=== PATIENT | female | born 1965 | race Caucasian/White ===

== ENCOUNTER 2021-08-07 18:18 | Emergency (ER) | payer BC, SELFPAY ==
[2021-08-07 18:28] VITALS: BP 155/79; PULSE 68; RESP 16; TEMP 36.2; O2SAT 100
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
[2021-08-07] MEDS: TETANUS,DIPHTHERIA,AC PERTUSSIS ADULT (0.5 ML) BOOSTRIX IM (18:47)
== END 2021-08-07 18:51 | disposition home or self-care (01) ==
PROVIDERS: Emergency Provider Nurse Practitioner Family; PCP Family Medicine
DX: S80.212A Abrasion, left knee, initial encounter (principal); V18.4XXA Pedal cycle driver injured in noncollision transport accident in traffic accident, initial encounter; Z23 Encounter for immunization
CPT/HCPCS: 90471; 90715; 99213; G0463

== ENCOUNTER 2022-05-04 14:15 | Outpatient (CLI) | payer BC, SELFPAY ==
--- NOTE | ~2022-05-04 | XR_ITS ---
EXAMINATION: XR abdomen/kub 1V DATE: 05/04/2022 14:38 INDICATION: Hematuria. TECHNIQUE: A supine view of the abdomen on 2 radiographs was obtained. COMPARISON: None. FINDINGS: There are no dilated loops of bowel. There is a moderate volume of stool in the colon. IMPRESSION: 1. No visible urolithiasis. Reviewed, dictated and finalized at location A. PENDENT VIDEO PRODUCER IMPRESSION: 1. No visible urolithiasis.
== END 2022-05-04 14:16 | disposition home or self-care (01) ==
PROVIDERS: PCP Family Medicine; Visit Provider Urology
DX: Z87.442 Personal history of urinary calculi (principal)
CPT/HCPCS: 74018

== ENCOUNTER → 2022-07-20 13:11 | Outpatient (CLI) | payer BC, SELFPAY ==
--- NOTE | ~2022-07-20 | US_ITS ---
EXAMINATION: US retroperitoneal comp DATE: 07/20/2022 13:38 INDICATION: Gross hematuria TECHNIQUE: Multiple grayscale and Doppler ultrasound images of the kidneys were obtained. COMPARISON: None. FINDINGS: The right kidney measures 11.8 x 4.8 x 5.2 cm. The left kidney measures 10.5 x 5.6 x 5.5 cm . There is a possible mass of the left kidney lower pole. A 5 mm hyperechoic area projects in the lef t kidney upper pole. The kidneys demonstrate normal parenchymal echogenicity. There is no hydronephro sis. The bladder is normal. IMPRESSION: 1. Possible mass of the left kidney lower pole and possible left nephrolithiasis. Consider follow-up CT without and with contrast. Reviewed, dictated and finalized at location L. IMPRESSION: 1. Possible mass of the left kidney lower pole and possible left nephrolithiasi s. Consider follow-up CT without and with contrast.
--- NOTE | ~2022-07-20 | XR_ITS ---
EXAMINATION: XR abdomen/kub 1V INDICATION: Gross hematuria TECHNIQUE: Supine views of the abdomen were obtained on 2 radiographs. COMPARISON: 05/04/2022 FINDINGS: There is a subtle 5 mm density projecting over the left kidney which could reflect a stone. No additional urolithiasis is identified. The bowel gas pattern is unremarkable. The visualized lung bases are clear. Bilateral breast implants are noted. IMPRESSION: 1. Possible left nephrolithiasis. Reviewed, dictated and finalized at location L.
== END ==
DX: R31.0 Gross hematuria (principal); R93.422 Abnormal radiologic findings on diagnostic imaging of left kidney
CPT/HCPCS: 74018; 76770

== ENCOUNTER 2022-09-29 08:29 | Outpatient (CLI) | payer BC, SELFPAY ==
[2022-09-29 18:56] LABS: Alanine Aminotransferase 24 U/L (6-35); Albumin Level 4.2 g/dL (3.5-5.1); Alkaline Phosphatase 58 U/L (38-126); Anion Gap 6 mmol/L (8-16); Aspartate Amino Transferase 52 U/L (14-36); Bilirubin,Total 0.4 mg/dL (0.2-1.3); Blood Urea Nitrogen 21 mg/dL (7-17); Calcium 8.5 mg/dL (8.4-10.2); Carbon Dioxide 30 mmol/L (22-30); Chloride 103 mmol/L (98-107); Cholesterol 174 mg/dL (0-200); Estimated Glomerular Filt Rate > 60; Glucose 87 mg/dL (65-110); HDL Direct 64 mg/dL; Potassium 4.3 mmol/L (3.4-5.0); Sodium 139 mmol/L (137-145); Triglycerides 41 mg/dL (<150)
[2022-09-29 19:15] LABS: LDL Cholesterol Direct 73 mg/dL
[2022-09-29 19:16] LABS: Hematocrit 42.6 % (37.0-47.0); Hemoglobin 13.6 g/dL (12.0-15.0); Mean Corpuscular HGB Conc 31.9 g/dl (32-36); Mean Corpuscular Hemoglobin 30.4 pg (26-34); Mean Corpuscular Volume 95.1 fl (80-100); Platelet Count Result 305 k/mm3 (150-375); Red Blood Count 4.48 M/mm3 (4.2-5.4); Red Cell Distribution Width 12.5 % (11.5-14.5); White Blood Count 5.8 K/mm3 (4.5-10.0)
[2022-09-29 19:22] LABS: Vitamin D 25 Hydroxy 39.9 ng/mL
[2022-09-29 19:35] LABS: Hemoglobin A1C 5.4 % (<5.7)
== END 2022-09-29 08:30 | disposition home or self-care (01) ==
LOC: ANHGOSHLAB 08:30
PROVIDERS: Visit Provider Nurse Practitioner
DX: Z00.00 Encounter for general adult medical examination without abnormal findings (principal); R63.5 Abnormal weight gain; E55.9 Vitamin D deficiency, unspecified
CPT/HCPCS: 36415; 80053; 80061; 82306; 83036; 84443; 85027

== ENCOUNTER 2022-10-07 08:15 | Emergency (ER) | payer BC, SELFPAY ==
--- NOTE | ~2022-10-07 | XR_ITS ---
EXAMINATION: XR abdomen/kub 1V INDICATION: Left flank pain TECHNIQUE: Supine view of the abdomen is obtained. COMPARISON: 07/20/2022 FINDINGS: A 3 mm calcification projects at the expected location of the left ureterovesicular junctio n. No definite additional urolithiasis is suspected. The bowel gas pattern is normal. The visualized lung bases are clear. IMPRESSION: 1. 3 mm left pelvic calcification at the expected location of the left ureterovesicular junction. Reviewed, dictated and finalized at location L. IMPRESSION: 1. 3 mm left pelvic calcification at the expected location of the left ureterov esicular junction.
[2022-10-07 08:26] VITALS: BP 149/93; PULSE 78; RESP 16; TEMP 36.8; O2SAT 100
--- NOTE | 2022-10-07 08:28 | ED.FEMALEGU ---
HPI - Female Genitourinary General Chief complaint: Urogenital-Female Stated complaint: Bladder & side pain Time Seen by Provider: 10/07/22 08:33 Source: patient and RN notes reviewed Mode of arrival: ambulatory Limitations: no limitations History of Present Illness HPI Narrative: 56 y/o female with history of kidney stones presented for c/o mild burning with urination this morning, then developed left flank/side pain. Rates pain 5/10, constant. Denies hematuria, frequency, n/v/d/f/c. Patient follows with Dr Solis for kidney stones and has 2 known stones on the left for which she has a scheduled lithotripsy in November. States she was told they are 'high up.' Has not taken anything for pain. Related Data Home Medications Medication Instructions Recorded Confirmed calcium carbonate 500 mg calcium 500 mg PO DAILY 09/22/22 10/07/22 (1,250 mg) chewable tablet (Calcium 500) Allergies Allergy/AdvReac Type Severity Reaction Status Date / Time Penicillins Allergy Unknown Verified 10/07/22 08:25 Review of Systems Review of Systems: CONSTITUTIONAL: Denies body aches, fever, chills, or sweats. CARDIOVASCULAR: Denies chest pain, palpitations, or edema. RESPIRATORY: Denies cough or dyspnea. GASTROINTESTINAL: Denies abdominal pain, nausea, vomiting, or diarrhea. GENITOURINARY: Reports dysuria, flank pain denies frequency, urgency, hematuria SKIN: Denies rash, itching, or wounds. MUSCULOSKELETAL: Denies joint pain or myalgia. [facility] Past Medical History Medical History (Updated 10/07/22 @ 09:10 by Ladi Johnson APRN) Kidney stones Surgical History Surgical History Hx of breast implants, bilateral Family History Family History Father Diabetes mellitus Hypertension Heart disease Mother Hypertension Sibling Diabetes mellitus Social History Social History Smoking status: Never smoker Second hand tobacco smoke exposure: No Alcohol intake: current Alcohol use details: rarely Substance use: never Lack of Transportation: No Lack of Food: Never True Current Housing: I Have Housing Concerned About Future Housing: No Difficulty Paying Gas/Electric Bills: No Difficulty Paying for Meds: No Currently Unemployed: No Education: Bachelor's Degree Difficulty w/ Childcare or Family Care: No Comments At time of signature, I have reviewed and agree with nursing past medical, surgical, social and family history unless otherwise noted. Please see nursing chart for further information. There is no relevant family history pertinent to the presenting complaint Exam Narrative: GENERAL: appears in pain, pacing; in no acute distress. ENT: Mucous membranes pink and moist. NECK: Normal AROM. Supple. CHEST: No respiratory distress. Clear to auscultation. HEART: Regular rate and rhythm. ABDOMEN: Soft, nontender, nondistended, normal active bowel sounds. Left CVA tenderness to left mid abd, not increased with palpation. SKIN: Warm, dry, no rash. NEURO: No focal deficits. Alert and oriented x3. Gait steady. PSYCH: Normal affect. Course Course Emergency Course: Patient is aware of diagnosis, understands and agrees to treatment plan. Anticipatory guidance given. Patient agrees to follow-up as directed and is aware of reasons to seek care at the emergency department. Portions of this record may have been created with voice recognition software Level of Care: Express Care Visit Vital Signs Vital signs: Vital Signs Temperature 98.2 F 10/07/22 08:26 Pulse Rate 78 10/07/22 08:26 Respiratory Rate 16 10/07/22 08:26 Blood Pressure 149/93 H 10/07/22 08:26 Pulse Oximetry 100 10/07/22 08:26 Oxygen Delivery Room Air 10/07/22 08:26 Temperature 98.2 F 10/07/22 08:26 Pulse Rate
[2022-10-07] MEDS: ACETAMINOPHEN 500 MG TABLET 1000 MG PO (08:42)
== END 2022-10-07 09:20 | disposition home or self-care (01) ==
PROVIDERS: Emergency Provider Nurse Practitioner Family; PCP Family Medicine
DX: N20.0 Calculus of kidney (principal)
CPT/HCPCS: 74018; 81003; 87086; 99213; A9270; G0463

== ENCOUNTER 2022-10-11 11:18 | Outpatient (CLI) | payer BC, SELFPAY ==
--- NOTE | ~2022-10-11 | XR_ITS ---
Supine and upright views of the abdomen Clinical history: Left renal stone COMPARISON: 10/07/2022 Findings: Bowel gas pattern is nonspecific. No evidence for obstruction or free air. Questionable 4 m m left renal stone.. Osseous structures are intact. Impression: Questionable 4 mm left renal stone. Reviewed, dictated and finalized at location M. Impression: Questionable 4 mm left renal stone.
== END 2022-10-11 11:19 | disposition home or self-care (01) ==
PROVIDERS: PCP Family Medicine; Visit Provider Urology
DX: N20.0 Calculus of kidney (principal)
CPT/HCPCS: 74018

== ENCOUNTER 2022-11-19 08:28 | Outpatient (CLI) | payer BC, SELFPAY | END 2022-11-19 08:29 | disposition home or self-care (01) | LOC: ANHGOSHLAB 08:30 | PROVIDERS: PCP Family Medicine; Visit Provider Urology | DX: N20.0 Calculus of kidney (principal) | CPT/HCPCS: 87086 ==

== ENCOUNTER → 2022-12-24 08:19 | Outpatient (CLI) | payer BC, SELFPAY ==
--- NOTE | ~2022-12-24 | XR_ITS ---
XR abdomen/kub 1V 12/24/2022 08:38 INDICATION: Left kidney stone TECHNIQUE: KUB COMPARISON: Comparison to multiple prior studies sequentially, with oldest reviewed study dated 09/2022. FINDINGS: Bowel gas pattern is normal. Moderate colonic fecal loading. There is no evidence of free a ir, mass, organomegaly, ascites or obstruction. There is a possible stone in the proximal left ureter at the L3-4 level. Kidneys are obscured by bowel content. The bones appear intact. IMPRESSION: 1: Possible left ureterolithiasis at the L3-4 level.. Reviewed, dictated and finalized at location B.
== END ==
PROVIDERS: PCP Nurse Practitioner; Visit Provider Urology
DX: N20.0 Calculus of kidney (principal)
CPT/HCPCS: 74018

== ENCOUNTER → 2022-12-31 09:01 | Outpatient (CLI) | payer BC, SELFPAY ==
--- NOTE | ~2022-12-31 | CT_ITS ---
EXAMINATION: CT abdomen pelvis wo con DATE: 12/31/2022 09:13 INDICATION: Left ureteral stone TECHNIQUE: Computed tomography (CT) of the abdomen and pelvis was performed without intravenous contr ast. Automated exposure control and iterative reconstruction technique were employed. Exam dose: 339 .08 mGy-cm total exam DLP. COMPARISON: 12/24/2022 KUB FINDINGS: Minimal discoid atelectasis or scarring at the bases of the lower lobes. Heart size is with in normal limits. No pericardial or pleural effusion. Bilateral breast implants. Small sliding hiatal hernia. The liver, gallbladder, bile ducts, spleen, pancreas and pancreatic duct are unremarkable. Normal morphology of the adrenal glands. There is a pinpoint nonobstructing lower pole left renal calculus. No left or right ureteral calculus or hydroureteronephrosis. No renal space-occupying mass lesion is evident on this limited noncontras t examination. Normal caliber of the abdominal aorta. No intraperitoneal or retroperitoneal or pelvic mass lesion or adenopathy or ascites. The uterus and adnexal areas and urinary bladder are unremarkable. Diverticulosis of the colon; no CT evidence of diverticulitis. No bowel obstruction, bowel wall thick ening, pneumatosis or intraperitoneal free air is detected. Included skeletal structures are unremarkable. No suspicious osteolytic or osteoblastic lesions are n oted. IMPRESSION: Pinpoint nonobstructing lower pole left renal calculus Small sliding hiatal hernia Diverticulosis of the colon; no evidence of diverticulitis Reviewed, dictated and finalized at Location A. Reviewed, dictated and finalized at location B.
== END ==
PROVIDERS: PCP Urology; Visit Provider Urology
DX: N20.1 Calculus of ureter (principal); K44.9 Diaphragmatic hernia without obstruction or gangrene; K57.30 Diverticulosis of large intestine without perforation or abscess without bleeding; N20.0 Calculus of kidney
CPT/HCPCS: 74176

== ENCOUNTER → 2023-03-25 08:46 | Outpatient (CLI) | payer BC, SELFPAY ==
--- NOTE | ~2023-03-25 | US_ITS ---
EXAMINATION: US abdomen complete DATE: 03/25/2023 09:12 INDICATION: Fatty change of the liver TECHNIQUE: Multiple grayscale and Doppler ultrasound images of the abdomen were obtained. COMPARISON: CT, 12/31/2022 FINDINGS: The head and body of the pancreas are normal. The pancreatic tail is obscured by bowel gas. The liver is normal with normal echogenicity and echotexture. No surface nodularity. Normal hepatope lakshmi flow in the main portal vein. The gallbladder is normal with no abnormal wall thickening, pericho lecystic fluid or stones. The normal common bile duct measures 3 mm. There was no sonographic Deleon sign. The visualized portions of the aorta and inferior vena cava are normal. The spleen is obscured by bowel The right kidney measures 10.2 x 4.1 x 4.4 cm. The left kidney measur es 10.6 x 5.6 x 6.2 cm. The kidneys demonstrate normal parenchymal echogenicity. There is no hydronep hrosis. IMPRESSION: 1. Unremarkable ultrasound. No evidence of steatosis of the liver. Reviewed, dictated and finalized at location B. AGENT
== END ==
DX: K76.0 Fatty (change of) liver, not elsewhere classified (principal)
CPT/HCPCS: 76700

== ENCOUNTER 2023-03-25 09:12 | Outpatient (CLI) | payer BC, SELFPAY ==
[2023-03-25 13:23] LABS: Basophils Percent Auto 0.6 % (0.2-1.2); Eosinophils Absolute Auto 0.1 K/mm3 (0-0.3); Eosinophils Percent Auto 1.6 % (0-4.4); Hematocrit 42.6 % (37.0-47.0); Hemoglobin 13.4 g/dL (12.0-15.0); Immature Granulocyte Absolute 0.01 K/mm3 (0.00-0.031); Immature Granulocyte Percent A 0.2 % (0-0.5); Lymphocytes Absolute Auto 1.81 K/mm3 (0.9-3.2); Lymphocytes Percent Auto 36.5 % (18.3-44.2); Mean Corpuscular HGB Conc 31.5 g/dl (32-36); Mean Corpuscular Hemoglobin 30.7 pg (26-34); Mean Corpuscular Volume 97.7 fl (80-100); Monocytes Absolute Auto 0.3 K/mm3 (0.1-0.6); Monocytes Percent Auto 6.5 % (2.6-8.5); Neutrophils Absolute Auto 2.7 K/mm3 (1.3-6.7); Neutrophils Percent Auto 54.6 % (45.5-73.1); Platelet Count Result 279 k/mm3 (150-375); Red Blood Count 4.36 M/mm3 (4.2-5.4); Red Cell Distribution Width 12.6 % (11.5-14.5)
[2023-03-25 13:33] LABS: Appearance Urine Cloudy (Clear); Bacteria Urine Rare /hpf; Bilirubin Urine Negative (Negative); Blood Urine Negative (Negative); Calcium Oxalate Crystals Urine Present /hpf; Color Urine Yellow (Yellow); Glucose Urine UA Negative (Negative); Hyaline Casts Urine Present /lpf; Ketones Urine Trace mg/dL (Negative); Leukocyte Esterase Ur 1+ LEU/UL (NEGATIVE); Need Manual Microscopic Reviewed; Nitrate Urine Negative (Negative); Protein Urine Negative (Negative); Specific Grav Ur 1.022 (1.001-1.035); Squamous Epithelial Cell Urine Occasional /hpf (Few); pH Urine 6.5 (5.0-9.0)
[2023-03-25 13:43] LABS: Alanine Aminotransferase 16 U/L (6-35); Albumin Level 4.1 g/dL (3.5-5.1); Alkaline Phosphatase 62 U/L (38-126); Anion Gap 7 mmol/L (8-16); Aspartate Amino Transferase 44 U/L (14-36); Bilirubin,Total 0.5 mg/dL (0.2-1.3); Blood Urea Nitrogen 19 mg/dL (7-17); CRP < 0.5 mg/dL (<1.0); Carbon Dioxide 25 mmol/L (22-30); Chloride 109 mmol/L (98-107); Cholesterol 196 mg/dL (0-200); Estimated Glomerular Filt Rate > 60; Glucose 81 mg/dL (65-110); HDL Direct 76 mg/dL; Magnesium 2.2 mg/dL (1.6-2.3); Potassium 4.2 mmol/L (3.4-5.0); Sodium 141 mmol/L (137-145); Triglycerides 63 mg/dL (<150); Uric Acid 4.8 mg/dL (2.5-7.5)
[2023-03-25 13:46] LABS: Prothrombin Time 13.7 Seconds (11.1-14.7)
[2023-03-25 13:56] LABS: Add Urine Microscopic? YES; LDL Cholesterol Direct 75 mg/dL
[2023-03-25 14:17] LABS: Iron 106 ug/dL (37-170)
[2023-03-25 14:52] LABS: Folic Acid 6.1 ng/mL (2.76->20)
[2023-03-25 14:54] LABS: Vitamin D 25 Hydroxy 41.1 ng/mL
[2023-03-25 15:00] LABS: Hemoglobin A1C 5.5 % (<5.7)
[2023-03-25 16:20] LABS: Free T4 Free Thyroxine 1.15 ng/mL (0.78-2.19)
[2023-03-25 19:31] LABS: Creatinine Urine 226.4 mg/dL
[2023-03-25 19:36] LABS: MALB Creatinine Ratio 7.1 mg/g (0-30); Microalbumin Urine Random 16.1 mg/L (0-16.7)
[2023-03-28 11:05] LABS: Insulin Level Total 5.3 uIU/mL (<=18.4)
[2023-03-28 13:41] LABS: GGT 11 U/L (3-70)
== END 2023-03-25 09:13 | disposition home or self-care (01) ==
LOC: ANHGOSHLAB 09:14
DX: E78.5 Hyperlipidemia, unspecified (principal); R73.9 Hyperglycemia, unspecified; K76.0 Fatty (change of) liver, not elsewhere classified; E03.9 Hypothyroidism, unspecified; E83.39 Other disorders of phosphorus metabolism; E79.0 Hyperuricemia without signs of inflammatory arthritis and tophaceous disease; E53.8 Deficiency of other specified B group vitamins; Z79.899 Other long term (current) drug therapy
CPT/HCPCS: 36415; 80053; 80061; 81001; 82043; 82306; 82607; 82728; 82746; 82977; 83036; 83525; 83540; 83735; 84100; 84439; 84443; 84481; 84550; 85025; 85610; 86140; 87086

== ENCOUNTER 2023-06-16 08:47 | Outpatient (CLI) | payer BC, SELFPAY ==
--- NOTE | ~2023-06-16 | XR_ITS ---
XR abdomen/kub 1V DATE: 06/16/2023 09:17 INDICATION: History of kidney stones TECHNIQUE: 2 supine AP views of the abdomen COMPARISON: 03/25/2023 complete abdominal ultrasound examination, reported as unremarkable 12/31/2022 CT abdomen pelvis, with report of pinpoint nonobstructing lower pole left renal calculus FINDINGS: No radiographically detected urinary tract calculus is noted. The psoas shadows are intact. No visceromegaly is evident. There is no evidence of bowel obstruction. The lung bases appear clear. Heart size appears normal. Included skeletal structures are unremarkable. IMPRESSION: No significant abnormality Reviewed, dictated and finalized at Location A. Reviewed, dictated and finalized at location L. IMPRESSION: No significant abnormality
== END 2023-06-16 08:48 | disposition home or self-care (01) ==
LOC: ANHIMG 08:49
PROVIDERS: Visit Provider Urology
DX: Z87.442 Personal history of urinary calculi (principal)
CPT/HCPCS: 74018

== ENCOUNTER 2024-03-19 15:27 | Emergency (ER) | payer BC, SELFPAY ==
[2024-03-19 15:45] VITALS: BP 152/93; PULSE 98; RESP 16; TEMP 37; O2SAT 99
--- NOTE | 2024-03-19 15:57 | ED.URI ---
HPI - URI/Sore Throat General Chief Complaint: Upper Respiratory Infection Stated Complaint: Chest Congestion Time Seen by Provider: 03/19/24 16:15 Source: patient and RN notes reviewed Mode of arrival: ambulatory Limitations: no limitations History of Present Illness HPI Narrative: 58-year-old female presents with concern for one-week history of chest heaviness. She denies cough, shortness of breath, fever. She denies chest pain. She denies back pain or abdominal pain. She denies nausea, vomiting. Reports belching sometimes makes her feel better. She denies history of GERD. MD elicited complaint: other (Chest heaviness) Related Data Home Medications ?Medication ?Instructions ?Recorded ?Confirmed ?Last Taken ?Type calcium carbonate (Calcium 500) 500 mg PO DAILY 09/22/22 02/13/24 Unknown History bupropion HCl 100 mg tablet 100 mg PO BID 12/28/23 02/13/24 Unknown History phentermine 37.5 mg capsule 37.5 mg PO DAILY 12/28/23 02/13/24 Unknown History tamsulosin 0.4 mg capsule 0.4 mg PO DAILY PRN 02/13/24 02/13/24 Unknown History Allergies Allergy/AdvReac Type Severity Reaction Status Date / Time Penicillins Allergy Unknown Verified 03/19/24 15:48 Review of Systems Review of Systems: CONSTITUTIONAL: Denies malaise, chills, sweats, or fever. EYES: Denies visual changes, redness, or discharge. ENT: Reports rhinorrhea, congestion, sinus pain, otalgia and sore throat. CARDIOVASCULAR: Denies chest pain, palpitations, or edema. RESPIRATORY: Reports cough. Denies dyspnea. GASTROINTESTINAL: Denies abdominal pain, nausea, vomiting, diarrhea SKIN: Denies rash or itching. MUSCULOSKELETAL: Denies myalgia. NEUROLOGIC: Denies headache. All systems reviewed & are unremarkable except as noted in HPI and below PMFSH Past Medical History Medical History (Updated 03/19/24 @ 16:57 by Leti Ayala NP) Kidney stones Surgical History Surgical History (Updated 02/13/24 @ 11:33 by Tosha Marti) H/O lithotripsy Hx of breast implants, bilateral Family History Family History Father Diabetes mellitus Hypertension Heart disease Mother Hypertension Sibling Diabetes mellitus Social History Social History Smoking status: Never smoker Second hand tobacco smoke exposure: No Alcohol intake: current Alcohol use details: rarely Substance use: never Lack of Transportation: No Lack of Food: Never True Current Housing: I Have Housing Concerned About Future Housing: No Difficulty Paying Gas/Electric Bills: No Difficulty Paying for Meds: No Currently Unemployed: No Education: Bachelor's Degree Difficulty w/ Childcare or Family Care: No Comments At time of signature, agree with nursing past medical, surgical, social and family history. There is no relevant family history pertinent to the presenting complaint Exam Narrative: GENERAL: Well-appearing, well-nourished, and in no acute distress. HEAD: Normocephalic EYES: PERRLA, conjunctivae clear ENT: Nares clear, turbinates edematous and erythematous, clear discharge. Mucous membranes moist. TM pearly zuniga with dull light reflex bilaterally; no tragal tenderness. Oropharynx not erythematous without lesions. Tonsils not enlarged and without exudate, no drooling, no hoarseness, no trismus, uvula midline. NECK: Supple. No lymphadenopathy CHEST: Clear to auscultation, breath sounds equal. No wheezing, rhonchi, rales, or stridor. No respiratory distress, speaks in full sentences. HEART: Regular rate and rhythm. No murmur heard. SKIN: Warm, dry, no rash. NEURO: Alert and oriented x3. PSYCH: Normal mood and affect Course Course Emergency Course: Patient is aware of diagnosis, understands and agrees to treatment plan. Anticipatory guidance given. Patient agrees to follow-up as directed and is aware of reasons to seek care at the emergency department. Portions of this record may have been created with voice recognition software Level of Care: Express Care Visit Vital Signs Vital signs: Vital Signs Temperature 98.6 F 03/19/24 15:45 Pulse Rate 98 03/19/24 15:45 Respiratory Rate 16 03/19/24 15:45 Blood Pressure 152/93 H 03/19/24 15:45 Pulse Oximetry 99 03/19/24 15:45 Temperature 98.6 F 03/19/24 15:45 Pulse Rate 98 03/19/24 15:45 Respiratory Rate 16 03/19/24 15:45 Blood Pressure 152/93 H 03/19/24 15:45 Pulse Oximetry 99 03/19/24 15:45 Reviewed. MDM - URI/Sore Throat MDM Narrative Medical decision making narrative: Differential diagnosis considered: Kiser virus, strep pharyngitis, allergic rhinitis, upper respiratory tract infection, sinusitis, rhinosinusitis, nasopharyngitis. viral pharyngitis, otitis media, otitis externa, pneumonia, bronchitis, viral cough syndrome, viral syndrome, and influenza. Exam findings show no acute concerns or changes; patient is non-toxic appearing and is in no distress. Patient is appropriate for outpatient treatment and follow-up. Lab Data Attestation: I reviewed the patient's lab results. Critical Care Time Critical Care Time Critical Care Time: No Discharge Plan Discharge Clinical Impression: Epigastric discomfort Patient Disposition: Home, Self-Care Condition: Stable Instructions: Epigastric Pain (ED) Additional Instructions: 1) Please follow-up with your primary care doctor in the next 1-2 days. 2) If you have any worsening of symptoms or any other urgent concerns please go to the ER. 3) Please take medications as prescribed and continue taking your home medications as usual. 4) Please read and follow information included in discharge instructions. Patient Language: Algerian Prescriptions: New famotidine [Pepcid] 40 mg tablet 40 mg PO HS Qty: 14 0RF omeprazole 40 mg capsule,delayed release(DR/EC) 40 mg PO DAILY Qty: 14 0RF No Action calcium carbonate [Calcium 500] 500 mg calcium (1,250 mg) tablet,chewable 500 mg PO DAILY tamsulosin 0.4 mg capsule 0.4 mg PO DAILY PRN sumatriptan succinate 50 mg tablet See Rx Instructions PO .COMPLEX Qty: 14 0RF Rx Instructions: take 1 tab at onset of headache; if no relief may repeat 1 tab after at least 2 hrs; max = 4 tabs/24 hr PO bupropion HCl 100 mg tablet 100 mg PO BID phentermine 37.5 mg capsule 37.5 mg PO DAILY Rx Instructions: must administer 30 minutes before or 1-2 hours after breakfast Follow-up/Referrals: Ashley Smith DO [Primary Care Provider] - Time of Disposition: 16:59
--- NOTE | 2024-03-19 16:14 | ECG_ITS ---
Test Date: 2024-03-19 16:05:13 Measurements Intervals [place] Rate: 84 P: 58 ME: 161 QRS: 51 QRSD: 92 T: 55 QT: 361 QTc: 427 Interpretive Statements SINUS RHYTHM No previous ECG available for comparison Electronically Signed On 03-20-2024 15:04:15 [employer] by Brandi Butt M.D.
[2024-03-19] MEDS: MAG HYDROX/AL HYDROX/SIMETH 30 ML UDC 15 ML PO (16:33)
[2024-03-19] MEDS: LIDOCAINE 2% VISC SOLN 15 ML UDC PO (16:34)
== END 2024-03-19 17:05 | disposition home or self-care (01) ==
PROVIDERS: Emergency Provider Nurse Practitioner; PCP Family Medicine
DX: R10.13 Epigastric pain (principal)
CPT/HCPCS: 93005; 99213; A9270; G0463

== ENCOUNTER 2024-03-20 15:26 | Emergency (ER) | payer BC, SELFPAY ==
--- NOTE | ~2024-03-20 | XR_ITS ---
CHEST RADIOGRAPH, PA AND LATERAL CLINICAL HISTORY: cp . COMPARISON: None available TECHNIQUE: PA and lateral views of the chest. FINDINGS The cardiomediastinal silhouette is unremarkable. The lungs are clear. Visualized osseous structures and soft tissues are unremarkable. IMPRESSION: No focal infiltrate or effusion. Reviewed, dictated and finalized at location A. RETE STONE FABRICATOR
--- NOTE | 2024-03-20 15:27 | ECG_ITS ---
Test Date: 2024-03-20 15:39:16 Measurements Intervals [place] Rate: 85 P: 66 NE: 162 QRS: 51 QRSD: 89 T: 57 QT: 345 QTc: 411 Interpretive Statements SINUS RHYTHM POSSIBLE LEFT ATRIAL ENLARGEMENT [-0.1mV P WAVE IN V1/V2] Compared to ECG 03/19/2024 16:05:13 No significant changes Electronically Signed On 03-21-2024 13:49:57 [employer] by Brandi Butt M.D.
[2024-03-20 15:54] LABS: Basophils Absolute Auto 0.1 K/mm3 (0.0-0.1); Eosinophils Absolute Auto 0.2 K/mm3 (0-0.3); Eosinophils Percent Auto 2.6 % (0-4.4); Hematocrit 40.6 % (37.0-47.0); Hemoglobin 13.6 g/dL (12.0-15.0); Immature Granulocyte Absolute 0.01 K/mm3 (0.00-0.031); Immature Granulocyte Percent A 0.1 % (0-0.5); Lymphocytes Absolute Auto 2.74 K/mm3 (0.9-3.2); Lymphocytes Percent Auto 39.3 % (18.3-44.2); Mean Corpuscular HGB Conc 33.5 g/dl (32-36); Mean Corpuscular Hemoglobin 31.3 pg (26-34); Mean Corpuscular Volume 93.5 fl (80-100); Mean Platelet Volume 8.3 fl (7.4-10.4); Monocytes Absolute Auto 0.6 K/mm3 (0.1-0.6); Monocytes Percent Auto 8.3 % (2.6-8.5); Neutrophils Absolute Auto 3.4 K/mm3 (1.3-6.7); Neutrophils Percent Auto 48.7 % (45.5-73.1); Platelet Count Result 284 k/mm3 (150-375); Red Blood Count 4.34 M/mm3 (4.2-5.4); Red Cell Distribution Width 12.1 % (11.5-14.5)
[2024-03-20 16:05] LABS: Alanine Aminotransferase 21 U/L (6-35); Albumin Level 4.3 g/dL (3.5-5.1); Alkaline Phosphatase 56 U/L (38-126); Anion Gap 1 mmol/L (4-12); Aspartate Amino Transferase 37 U/L (14-36); Bilirubin,Total 0.5 mg/dL (0.2-1.3); Blood Urea Nitrogen 20 mg/dL (7-17); Calcium 9.4 mg/dL (8.4-10.2); Carbon Dioxide 30 mmol/L (22-30); Chloride 104 mmol/L (98-107); Estimated CRCL calculation 62 ml/min; Estimated Glomerular Filt Rate > 60; Glucose 97 mg/dL (65-110); Lipase 111 U/L (23-300); Sodium 135 mmol/L (137-145)
[2024-03-20 16:09] LABS: INR 0.9; Prothrombin Time 12.6 Seconds (11.1-14.7)
[2024-03-20 16:14] LABS: Partial Thromboplastin Time 24.9 Seconds (22.3-36.8)
[2024-03-20 16:15] LABS: Troponin I < 0.012 ng/mL (0.000-0.034)
[2024-03-20 18:28] VITALS: BP 144/92; PULSE 85; RESP 18; O2SAT 99
--- NOTE | 2024-03-20 18:36 | ED_ITS ---
HPI - Chest Pain General Chief Complaint: Chest Pain Stated Complaint: chest pressure Time Seen by Provider: 03/20/24 17:53 History of Present Illness HPI narrative: 58-year-old female presenting with 1 week of chest pressure. States that it does improve with Advil. States that it is worse when she lays flat but she otherwise denies obvious alleviating or exacerbating factors. No shortness of breath or leg swelling. Does not worsen with exertion. Related Data Home Medications ?Medication ?Instructions ?Recorded ?Confirmed ?Last Taken ?Type calcium carbonate (Calcium 500) 500 mg PO DAILY 09/22/22 02/13/24 Unknown History bupropion HCl 100 mg tablet 100 mg PO BID 12/28/23 02/13/24 Unknown History phentermine 37.5 mg capsule 37.5 mg PO DAILY 12/28/23 02/13/24 Unknown History tamsulosin 0.4 mg capsule 0.4 mg PO DAILY PRN 02/13/24 02/13/24 Unknown History Allergies Allergy/AdvReac Type Severity Reaction Status Date / Time Penicillins Allergy Unknown Verified 03/20/24 15:27 Review of Systems 2 Review of Systems: All systems reviewed & are unremarkable except as noted in HPI and below PMFSH Past Medical History Medical History Kidney stones Surgical History Surgical History H/O lithotripsy Hx of breast implants, bilateral Family History Family History Father Diabetes mellitus Hypertension Heart disease Mother Hypertension Sibling Diabetes mellitus Social History Social History Smoking status: Never smoker Second hand tobacco smoke exposure: No Alcohol intake: current Alcohol use details: rarely Substance use: never Lack of Transportation: No Lack of Food: Never True Current Housing: I Have Housing Concerned About Future Housing: No Difficulty Paying Gas/Electric Bills: No Difficulty Paying for Meds: No Currently Unemployed: No Education: Bachelor's Degree Difficulty w/ Childcare or Family Care: No Exam 2 Narrative: GENERAL: Well-appearing, Nontoxic, no acute distress, pleasant cooperative HEAD: Normocephalic, atraumatic. EYES: PERRLA and EOMI. ENT: grossly unremarkable. NECK: Supple. CHEST: Clear to auscultation. No respiratory distress. HEART: Regular rate and rhythm ABDOMEN: Soft, nontender, nondistended EXTREMITIES: Normal range of motion. No edema. SKIN: Warm, dry, no rash. NEURO: No focal deficits. Alert and oriented x3. PSYCH: Normal mood and affect. Course Vital Signs Vital signs: Vital Signs Oxygen Delivery Room Air 03/20/24 18:15 Pulse Rate 85 03/20/24 18:28 Respiratory Rate 18 03/20/24 18:28 Blood Pressure 144/92 H 03/20/24 18:28 Pulse Oximetry 99 03/20/24 18:28 Oxygen Delivery Room Air 03/20/24 18:15 MDM - Chest Pain MDM Narrative Medical decision making narrative: 58-year-old female presenting with chest pressure for 1 week. Vitals are stable. Exam remarkable for the above. EKG per my interpretation shows normal sinus rhythm, no ST elevations or depressions. Troponin undetectable x2. Dimer within normal limits. Chest x-ray without acute abnormalities. Feel the patient is safe for outpatient management. Discussed appropriate supportive care and return precautions. Recommend close PCP follow-up. Patient is agreeable this plan. Discharged in stable condition. Lab Data 03/20/24 15:43 03/20/24 15:43 Labs: Lab Results 03/20/24 03/20/24 Range/Units 15:43 18:13 WBC 7.0 (4.5-10.0) K/mm3 RBC 4.34 (4.2-5.4) M/mm3 Hgb 13.6 (12.0-15.0) g/dL Hct 40.6 (37.0-47.0) % MCV 93.5 (80-100) fl MCH 31.3 (26-34) pg MCHC 33.5 (32-36) g/dl RDW 12.1 (11.5-14.5) % Plt Count 284 (150-375) k/mm3 MPV 8.3 (7.4-10.4) fl Immature Gran % (Auto) 0.1 (0-0.5) % Neut % (Auto) 48.7 (45.5-73.1) % Lymph % (Auto) 39.3 (18.3-44.2) % [place] % (Auto) 8.3 (2.6-8.5) % Eos % (Auto) 2.6 (0-4.4) % Baso % (Auto) 1.0 (0.2-1.2) % Lymph # (Auto) 2.74 (0.9-3.2) K/mm3 [place] # (Auto) 0.6 (0.1-0.6) K/mm3 Eos # (Auto) 0.2 (0-0.3) K/mm3 Baso # (Auto) 0.1 (0.0-0.1) K/mm3 Abs Immat Gran (auto) 0.01 (0.00-0.031) K/mm3 Absolute Neuts (auto) 3.4 (1.3-6.7) K/mm3 Absolute Nucleated RBC 0.000 (0.0-0.012) K/mm3 Nucleated RBC % 0.0 (0.0-0.2) % PT 12.6 (11.1-14.7) Seconds INR 0.9 APTT 24.9 (22.3-36.8) Seconds D-Dimer 0.31 (<0.48) ug/mL Sodium 135 L (137-145) mmol/L Potassium 4.0 (3.4-5.0) mmol/L Chloride 104 (98-107) mmol/L Carbon Dioxide 30 (22-30) mmol/L Anion Gap 1 L (4-12) mmol/L BUN 20 H (7-17) mg/dL Creatinine 0.80 (0.7-1.0) mg/dL Estim Creat Clear Calc 62 ml/min Estimated GFR > 60 (59 - ) Glucose 97 (65-110) mg/dL Calcium 9.4 (8.4-10.2) mg/dL Total Bilirubin 0.5 (0.2-1.3) mg/dL AST 37 H (14-36) U/L ALT 21 (6-35) U/L Alkaline Phosphatase 56 (38-126) U/L Troponin I < 0.012 < 0.012 (0.000-0.034) ng/mL Total Protein 7.0 (6.3-8.2) g/dL Albumin 4.3 (3.5-5.1) g/dL Lipase 111 (23-300) U/L Imaging Data Radiologist's impression: ITS Impressions Chest X-Ray 03/20/24 16:56 IMPRESSION: No focal infiltrate or effusion. Critical Care Time Critical Care Time Critical Care Time: No Discharge Plan Discharge Clinical Impression: Atypical chest pain Patient Disposition: Home, Self-Care Condition: Stable Instructions: Antibiotic Form, Chest Pain (ED) Additional Instructions: Your EKG, blood work, chest x-ray today are normal. Please use Tylenol and Advil for pain control. Follow-up closely with your PCP. If your symptoms worsen or other concerning symptoms arise, please return to the ER. Patient Language: Canadian Prescriptions: No Action famotidine [Pepcid] 40 mg tablet 40 mg PO HS Qty: 14 0RF omeprazole 40 mg capsule,delayed release(DR/EC) 40 mg PO DAILY Qty: 14 0RF calcium carbonate [Calcium 500] 500 mg calcium (1,250 mg) tablet,chewable 500 mg PO DAILY tamsulosin 0.4 mg capsule 0.4 mg PO DAILY PRN sumatriptan succinate 50 mg tablet See Rx Instructions PO .COMPLEX Qty: 14 0RF Rx Instructions: take 1 tab at onset of headache; if no relief may repeat 1 tab after at least 2 hrs; max = 4 tabs/24 hr PO bupropion HCl 100 mg tablet 100 mg PO BID phentermine 37.5 mg capsule 37.5 mg PO DAILY Rx Instructions: must administer 30 minutes before or 1-2 hours after breakfast Follow-up/Referrals: Ashley Smith DO [Primary Care Provider] -
[2024-03-20 18:46] LABS: Troponin I < 0.012 ng/mL (0.000-0.034)
[2024-03-20 18:52] LABS: D Dimer 0.31 ug/mL (<0.48)
[2024-03-20 20:23] LABS: Influenza A QL RT-PCR Negative (Negative); Influenza B QL RT-PCR Negative (Negative); RSV RNA, RT-PCR Negative (Negative); SARS-CoV-2 RNA PCR Negative (Negative)
== END 2024-03-20 19:33 | disposition home or self-care (01) ==
PROVIDERS: Student in an Organized Health Care Education/Training Program; Emergency Provider Emergency Medicine; PCP Family Medicine
DX: R07.89 Other chest pain (principal); Z20.822 Contact with and (suspected) exposure to COVID-19
CPT/HCPCS: 36415; 71046; 80053; 83690; 84484; 85025; 85380; 85610; 85730; 87637; 93005; 96374; 99284

== ENCOUNTER 2024-04-11 10:37 | Outpatient (CLI) | payer BC, SELFPAY ==
--- NOTE | ~2024-04-11 | US_ITS ---
EXAMINATION: US soft tissue head and neck DATE: 04/11/2024 11:09 INDICATION: Chest and left neck pain and localized swelling, mass or lump at the neck TECHNIQUE: Multiple grayscale and Doppler ultrasound images of the region of concern at the left neck were obtained. COMPARISON: None FINDINGS: There is noncompressible occlusive appearing thrombus in the left internal jugular vein and visualize d portion of the left subclavian vein. Visualized portion of the left thyroid lobe is unremarkable. M ildly prominent but still normal-sized 1.6 x 1.0 x 0.9 cm lymph node identified at the left neck. No pathologically enlarged lymphadenopathy or other abnormal masses or fluid collections identified. IMPRESSION: 1. Occlusive appearing thrombus in the left internal jugular and subclavian veins. Reviewed, dictated and finalized at location B. CTOR OF REHABILITATIVE SERVICES IMPRESSION: 1. Occlusive appearing thrombus in the left internal jugular and subclavian vei ns.
== END 2024-04-11 10:38 | disposition home or self-care (01) ==
LOC: GOSHIMG 10:37
PROVIDERS: PCP Family Medicine; Visit Provider Nurse Practitioner
DX: R22.1 Localized swelling, mass and lump, neck (principal); I82.C12 Acute embolism and thrombosis of left internal jugular vein
CPT/HCPCS: 76536

== ENCOUNTER 2024-04-11 12:05 | Observation (INO) | payer BC, SELFPAY ==
[2024-04-11] VITALS (11 sets, daily range): BP systolic 141–155; BP diastolic 84–94; PULSE 84–103; RESP 14–97; TEMP 36.8–37.1; O2SAT 20–99; BMI 25.9
--- NOTE | ~2024-04-11 | CT_ITS ---
EXAMINATION: CT BRAIN W/O DATE: 04/12/2024 18:54 INDICATION: Headaches TECHNIQUE: Computed tomography (CT) of the head was performed without intravenous contrast. The dose- length product was 605.33 mGy-cm. Automated exposure control and iterative reconstruction technique w ere employed. COMPARISON: No prior studies for comparison. FINDINGS: Normal brain parenchymal volume for age. Normal zuniga-white differentiation. No acute intrac ranial hemorrhage, infarction, mass or mass effect. No ventriculomegaly or midline shift. Midline sagittal images demonstrate a normal corpus callosum, c raniovertebral junction and sella turcica. Basilar cisterns are patent. Paranasal sinuses and mastoids are pneumatized. No depressed skull fractures. IMPRESSION: 1. No acute intracranial abnormality. Reviewed, dictated and finalized at location A. RITY SERVICES MANAGER
--- NOTE | ~2024-04-11 | MR_ITS ---
EXAMINATION: MR brain/brain stem wo con DATE: 04/13/2024 13:43 INDICATION: Headache. TECHNIQUE: Magnetic resonance imaging (MRI) of the brain and brainstem was performed without intraven ous contrast. COMPARISON: Head CT 04/12/2024 FINDINGS: There is no intracranial hemorrhage, acute infarction, or abnormal intracranial mass lesion . The ventricles are normal in size. There is mild mucosal thickening in the paranasal sinuses. The o rbits are normal. The mastoid air cells are normal. IMPRESSION: 1. Normal brain. Reviewed, dictated and finalized at location A. SERVICE HELPER IMPRESSION: 1. Normal brain.
--- NOTE | ~2024-04-11 | CT_ITS ---
CTA neck Ordering provider: Abraham Coreas MD History: . jugular thrombus . Comparison: None. Technique: CT angiogram neck was performed following timed intravenous injection of contrast. Thin sl ice axial images and reformatted coronal images were obtained. Three dimensional reformatted images o f the neck were also obtained using a [employer] workstation. Automated exposure control and iterative re construction technique were employed. The dose-length product was 0.00 mGy-cm. 100 mL Omnipaque 350 w as given IV. FINDINGS: Thrombosis of the left internal jugular vein is seen with thrombus extending from the mid left intern product marketing manager al jugular vein down to the brachiocephalic vein.. 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 Attenuation of the caliber of the left sigmoid sinus is also noted. CERVICAL CAROTID ARTERY: Normal caliber and contour. Percent stenosis per NASCET criteria is 0%. No carotid dissection. Otherwise, no significant atheromatous disease or stenosis of the cervical caroti d system. LEFT CERVICAL CAROTID ARTERY: Normal caliber and contour. Percent stenosis per NASCET criteria is 0% . No carotid dissection. Otherwise, no significant atheromatous disease or stenosis of the cervical c arotid system. VISUALIZED BILATERAL INTRACRANIAL CAROTID ARTERIES: Normal. VERTEBRAL BASILAR SYSTEM: Normal caliber and contour VISUALIZED AORTIC ARCH AND BRANCHING VESSELS: Mild atheromatous disease but no significant stenosis. Ascending aorta measures 3.4 cm. SOFT TISSUES: Normal. CERVICAL SPINE: Normal spine. IMPRESSION: Normal CTA head and neck. Percent stenosis per NASCET criteria is 0%. Thrombosis of the left internal jugular vein. Nonvisualization of the left transverse dural sinus with small caliber of the left sigmoid sinus. Reviewed, dictated and finalized at location A. RNATIONAL SOURCING MANAGER IMPRESSION: Normal CTA head and neck. Percent stenosis per NASCET criteria is 0%. Thrombosis of the left internal jugular vein. Nonvisualization of the left transverse dural sinus with small caliber of the l eft sigmoid sinus.
--- NOTE | ~2024-04-11 | CT_ITS ---
EXAMINATION: CTA chest PE protocol DATE: 04/11/2024 15:06 INDICATION: Thrombosis in the left jugular vein. TECHNIQUE: Computed tomography (CT) pulmonary angiogram of the chest was performed with 100 mL Omnipa que-350 intravenous contrast. Additional 3D reconstructions utilizing coronal maximum intensity proje ction (MIP) were performed. Automated exposure control and iterative reconstruction technique were em ployed. The dose-length product was 881.41 mGy-cm. COMPARISON: None FINDINGS: There is a small amount of peripheral thrombus in the lateral basilar segmental pulmonary artery of t he right lower lobe. No other pulmonary emboli appreciated. There is mild linear discoid atelectasis in the lingula and bilateral dependent lower lobes. No pneumonia, pulmonary edema or pleural effusion . Heart size is normal. No pericardial effusion. No leftward bowing of the ventricular septum to sugg est right heart strain. No pericardial effusion. Thoracic aorta is normal in caliber with no dissecti on. No pathologically enlarged thoracic lymphadenopathy. Bilateral subpectoral breast implants. Visua lized upper abdomen is unremarkable. Mild thoracic and lower cervical spondylosis. IMPRESSION: 1. Pulmonary embolism with low clot burden in the lateral basilar segmental pulmonary artery of the r ight lower lobe. Reviewed, dictated and finalized at location B. RTMENT DIRECTOR IMPRESSION: 1. Pulmonary embolism with low clot burden in the lateral basilar segmental pul monary artery of the right lower lobe.
--- NOTE | ~2024-04-11 | CT_ITS ---
EXAMINATION: CTA BRAIN/CAROTID DATE: 04/13/2024 14:04 INDICATION: Headache. Assess for confirmation with recent deep venous thrombosis and pulmonary emboli sm. TECHNIQUE: Computed tomographic angiography (CTA) of the head and neck was performed with 100 mL Omni paque-350 intravenous contrast. Multiplanar reconstructions and maximum intensity projection 3D-recon structions of the carotid arteries and of the intracranial arteries were created by the technologist on a separate workstation. Precontrast CT of the head was also obtained. Automated exposure control and iterative reconstruction technique were employed.The dose-length product was 1544.71 mGy-cm. COMPARISON: Neck CT angiogram dated 04/11/2024, head CT dated 04/12/2024 and brain MR dated 04/13/2024 FINDINGS: Carotid arteries: The visualized aortic arch and mucosal arising from the arch are normal in caliber with no evident at herosclerosis or dissection. There is no evident atherosclerotic plaque with 0% stenosis of the right and left carotid bulbs relative to normal distal artery lumen diameter (NASCET criteria). Mild depen dent atelectasis in the visualized upper lungs. Mild cervical spondylosis. The left internal jugular and brachiocephalic veins remain unopacified with contrast suggesting continued thrombosis however ev aluation is limited on the arterial phase of imaging. Head: No acute intracranial hemorrhage, acute infarction or abnormal extra axial fluid collection. Ventricl es are normal and symmetric. No mass/mass effect. The orbits, paranasal sinuses and mastoid air cells are normal. Intracranial arteries The left vertebral artery is mildly dominant. There is no hemodynamically significant stenosis in the vertebral, basilar and internal carotid arteries. Vertebral arteries are codominant. There are no an eurysms identified. Both A1 and the left P1 segments are patent. The right posterior cerebral artery supplied from the right internal carotid artery via a patent right posterior communicating artery. T here is also a patent anterior communicating artery. Cerebral arterial arborization appears symmetric . IMPRESSION: 1. No acute intracranial process. 2. No evident atherosclerotic plaque with 0% stenosis of the right and left carotid bulbs relative to normal distal artery lumen diameter (NASCET criteria). 3. Unremarkable cerebral CT angiogram with no hematoma significant stenosis, aneurysm or thrombosis. 4. Likely persistent thrombosis of the left internal jugular and brachiocephalic veins although asses sment is limited on this arterial phase CT angiogram. Reviewed, dictated and finalized at location B. CIATE PROGRAMMER ANALYST IMPRESSION: 1. No acute intracranial process. 2. No evident atherosclerotic plaque with 0% stenosis of the right and left car otid bulbs relative to normal distal artery lumen diameter (NASCET criteria). 3. Unremarkable cerebral CT angiogram with no hematoma significant stenosis, an eurysm or thrombosis. 4. Likely persistent thrombosis of the left internal jugular and brachiocephali c veins although assessment is limited on this arterial phase CT angiogram.
--- NOTE | ~2024-04-11 | US_ITS ---
LEFT UPPER EXTREMITY VENOUS ULTRASOUND Ordering provider: April Castellanos APRN History: . upper extremity discoloration . Comparison: None. FINDINGS: --JUGULAR: Thrombosed --SUBCLAVIAN: Thrombosed --AXILLARY: Patent and free of thrombus. Normal compressibility, phasic flow and augmentation. --BRACHIAL: Patent and free of thrombus. Normal compressibility, phasic flow and augmentation. --CEPHALIC: Patent and free of thrombus. Normal compressibility, phasic flow and augmentation. --BASILIC: Patent and free of thrombus. Normal compressibility, phasic flow and augmentation. --RADIAL: Patent and free of thrombus. Normal compressibility, phasic flow and augmentation. --ULNAR: Patent and free of thrombus. Normal compressibility, phasic flow and augmentation. IMPRESSION: Thrombosis of the left internal jugular and left subclavian vein. Reviewed, dictated and finalized at location A. ING CHECKER
--- NOTE | ~2024-04-11 | US_ITS ---
BILATERAL LOWER EXTREMITY VENOUS ULTRASOUND Ordering provider: Mau Fitzgerald MD History: . r/o DVT . Comparison: None FINDINGS: RIGHT LOWER EXTREMITY VEINS: --COMMON FEMORAL: Patent and free of thrombus. Normal compressibility, phasic flow and augmentation. --PROXIMAL SUPERFICIAL FEMORAL: Patent and free of thrombus. Normal compressibility, phasic flow and augmentation. --DISTAL SUPERFICIAL FEMORAL: Patent and free of thrombus. Normal compressibility, phasic flow and au gmentation. --POPLITEAL: Patent and free of thrombus. Normal compressibility, phasic flow and augmentation. --POSTERIOR TIBIAL: Patent and free of thrombus. Normal compressibility, phasic flow and augmentation . LEFT LOWER EXTREMITY VEINS: --COMMON FEMORAL: Patent and free of thrombus. Normal compressibility, phasic flow and augmentation. --PROXIMAL SUPERFICIAL FEMORAL: Patent and free of thrombus. Normal compressibility, phasic flow and augmentation. --DISTAL SUPERFICIAL FEMORAL: Patent and free of thrombus. Normal compressibility, phasic flow and au gmentation. --POPLITEAL: Patent and free of thrombus. Normal compressibility, phasic flow and augmentation. --POSTERIOR TIBIAL: Patent and free of thrombus. Normal compressibility, phasic flow and augmentation . IMPRESSION: Negative bilateral lower extremity venous US. No deep vein thrombosis. Reviewed, dictated and finalized at location A. NG TRIMMER
--- NOTE | ~2024-04-11 | CT_ITS ---
EXAMINATION: CT abdomen pelvis wo/w con DATE: 04/14/2024 13:31 INDICATION: Hypercoagulable state. TECHNIQUE: Computed tomography (CT) of the abdomen and pelvis was performed with 100 mL Omnipaque 350 intravenous contrast. Automated exposure control and iterative reconstruction technique were employe d. The dose-length product was 508.82 mGy-cm. COMPARISON: CT abdomen and pelvis 12/31/2022 FINDINGS: The visualized portions of lung bases demonstrate mild atelectasis. There is a small left p leural effusion. The heart size is normal. No pericardial effusion. Breast implants are noted. The li delmy, gallbladder, spleen, pancreas, and adrenal glands are normal. There is a 2 mm stone right kidney . There is a 2 mm stone in left kidney. There is a 5 mm cyst in right kidney. There are no dilated lo ops of bowel. The appendix is not visualized. There are no pathologically enlarged lymph nodes. There is no free intraperitoneal fluid. There is severe lower lumbar spondylosis. IMPRESSION: 1. Small left pleural effusion. 2. Bilateral nonobstructing kidney stones. Reviewed, dictated and finalized at location A. ATTACHER
--- NOTE | 2024-04-11 12:13 | ECG_ITS ---
Test Date: 2024-04-11 12:15:14 Measurements Intervals [place] Rate: 101 P: 58 [place]: 176 QRS: 55 QRSD: 90 T: 39 QT: 342 QTc: 444 Interpretive Statements SINUS TACHYCARDIA POSSIBLE LEFT ATRIAL ENLARGEMENT [-0.1mV P-WAVE IN V1/V2] ABNORMAL RHYTHM ECG Compared to ECG 03/20/2024 15:39:16 Sinus rhythm no longer present Electronically Signed On 04-11-2024 14:36:49 [employer] CEO by Katie Alvarez M.D.
[2024-04-11 12:55] LABS: Basophils Percent Auto 0.4 % (0.2-1.2); Eosinophils Absolute Auto 0.2 K/mm3 (0-0.3); Eosinophils Percent Auto 1.9 % (0-4.4); Hematocrit 40.2 % (37.0-47.0); Immature Granulocyte Absolute 0.03 K/mm3 (0.00-0.031); Immature Granulocyte Percent A 0.3 % (0-0.5); Lymphocytes Absolute Auto 2.36 K/mm3 (0.9-3.2); Lymphocytes Percent Auto 23.9 % (18.3-44.2); Mean Corpuscular HGB Conc 32.3 g/dl (32-36); Mean Corpuscular Hemoglobin 30.6 pg (26-34); Mean Corpuscular Volume 94.6 fl (80-100); Mean Platelet Volume 8.5 fl (7.4-10.4); Monocytes Absolute Auto 0.8 K/mm3 (0.1-0.6); Monocytes Percent Auto 8.5 % (2.6-8.5); Neutrophils Absolute Auto 6.4 K/mm3 (1.3-6.7); Platelet Count Result 340 k/mm3 (150-375); Red Blood Count 4.25 M/mm3 (4.2-5.4); Red Cell Distribution Width 12.3 % (11.5-14.5); White Blood Count 9.9 K/mm3 (4.5-10.0)
[2024-04-11 13:05] LABS: Alanine Aminotransferase 18 U/L (6-35); Albumin Level 3.9 g/dL (3.5-5.1); Alkaline Phosphatase 63 U/L (38-126); Anion Gap 6 mmol/L (4-12); Aspartate Amino Transferase 27 U/L (14-36); Bilirubin,Total 0.6 mg/dL (0.2-1.3); Blood Urea Nitrogen 20 mg/dL (7-17); Calcium 8.8 mg/dL (8.4-10.2); Carbon Dioxide 31 mmol/L (22-30); Chloride 102 mmol/L (98-107); Estimated CRCL calculation 67 ml/min; Estimated Glomerular Filt Rate > 60; Glucose 91 mg/dL (65-110); Sodium 139 mmol/L (137-145)
[2024-04-11 13:20] LABS: Prothrombin Time 13.4 Seconds (11.1-14.7)
[2024-04-11] MEDS: ENOXAPARIN 80 MG/0.8 ML SYRINGE 70 MG SUB-Q (16:09)
--- NOTE | 2024-04-11 16:13 | ED_ITS ---
HPI - General Adult General Chief complaint: Neck Pain/Injury Stated complaint: DVT to neck Source: patient Mode of arrival: EMS Limitations: no limitations History of Present Illness HPI narrative: 58-year-old otherwise healthy here with a complaint of neck pain, left arm and back pain which is been ongoing for past few weeks. Patient states that she was seen in the emergency room on [address] was diagnosed with atypical chest pain however she continues to have chest pressure. She saw her primary doctor this morning who ordered an ultrasound of the left upper extremity was found to have thrombus in the left internal jugular vein. She denies any recent instrumentation. No previous history of blood clots. She denies any shortness of breath. Onset (ago): week(s) (1) Location: chest, back and upper extremity Radiation: back Severity: moderate Quality: aching Pain Consistency: constant Relieving factors: none Exacerbating factors: none Associated symptoms: denies other symptoms Treatments prior to arrival: none Related Data Home Medications ?Medication ?Instructions ?Recorded ?Confirmed ?Last Taken ?Type calcium carbonate (Calcium 500) 500 mg PO DAILY 09/22/22 04/11/24 Unknown History bupropion HCl 100 mg tablet 100 mg PO BID 12/28/23 04/11/24 Unknown History phentermine 37.5 mg capsule 37.5 mg PO DAILY 12/28/23 04/11/24 Unknown History tamsulosin 0.4 mg capsule 0.4 mg PO DAILY PRN 02/13/24 04/11/24 Unknown History Allergies Allergy/AdvReac Type Severity Reaction Status Date / Time Penicillins Allergy Unknown Verified 04/11/24 12:16 Review of Systems 2 Review of Systems: All systems reviewed & are unremarkable except as noted in HPI and below Constitutional: Constitutional: Reports no additional constitutional complaints Eyes: Eyes: Reports no additional eye complaints ENT: Reports system reviewed and no additional complaints, except as documented Cardiovascular: Cardiovascular: Reports no additional cardiovascular complaints Respiratory: Respiratory: Reports no additional respiratory complaints Gastrointestinal: Gastrointestinal: Reports no additional gastrointestinal complaints Musculoskeletal: Musculoskeletal: Reports no additional musculoskeletal complaints Neurologic: Reports system reviewed and no additional complaints, except as documented Endocrine: Endocrine: Reports no additional endocrine complaints Hematologic/Lymphatic: Hematologic/Lymphatic: Reports no additional hematologic/lymphatic complaints PMFSH Past Medical History Medical History Kidney stones Surgical History Surgical History H/O lithotripsy Hx of breast implants, bilateral Family History Family History Father Diabetes mellitus Hypertension Heart disease Mother Hypertension Sibling Diabetes mellitus Social History Social History Smoking status: Never smoker Second hand tobacco smoke exposure: No Alcohol intake: current Alcohol use details: rarely Substance use: never Lack of Transportation: No Lack of Food: Never True Current Housing: I Have Housing Concerned About Future Housing: No Difficulty Paying Gas/Electric Bills: No Difficulty Paying for Meds: No Currently Unemployed: No Education: Bachelor's Degree Difficulty w/ Childcare or Family Care: No Exam 2 Narrative: GENERAL: Well-appearing, well-nourished, and in no acute distress. HEAD: Normocephalic, atraumatic. EYES: PERRLA and EOMI. ENT: Nares clear, no rhinorrhea or epistaxis. Mucous membranes moist. NECK: Supple. CHEST: Clear to auscultation. No respiratory distress. HEART: Regular rate and rhythm. No murmur heard. Normal peripheral pulses. ABDOMEN: Soft, nontender, nondistended, normal active bowel sounds. EXTREMITIES: Normal range of motion. No edema. SKIN: Warm, dry, no rash. NEURO: No focal deficits. Alert and oriented x3. PSYCH: Normal mood and affect. Course Course Emergency Course: Notified patient about her lab work, CT findings. I discussed with the vascular surgery at [facility]. He recommended anticoagulation no acute surgical intervention is needed at this time. Patient was notified about that however she does not feel comfortable going home she wants to be observed. I have explained both patient and several times about his diagnosis and management. Discussed with the hospitalist accepted the patient Vital Signs Vital signs: Vital Signs Temperature 36.8 C 04/11/24 12:03 Pulse Rate 101 H 04/11/24 12:03 Respiratory Rate 18 04/11/24 12:03 Blood Pressure 155/94 H 04/11/24 12:03 Pulse Oximetry 99 04/11/24 12:03 Oxygen Delivery Room Air 04/11/24 12:03 Temperature 36.8 C 04/11/24 12:03 Pulse Rate 97 04/11/24 16:11 Respiratory Rate 21 H 04/11/24 16:11 Blood Pressure 153/88 H 04/11/24 16:11 Pulse Oximetry 96 04/11/24 16:11 Oxygen Delivery Room Air 04/11/24 12:03 Medical Decision Making Differential Diagnosis Differential Diagnosis: PE , unknown malignancy Medical Records Medical records reviewed: Yes I reviewed the external patient's medical records. Vital Signs Vital Signs: Vital Signs Temperature 36.8 C 04/11/24 12:03 Pulse Rate 101 H 04/11/24 12:03 Respiratory Rate 18 04/11/24 12:03 Blood Pressure 155/94 H 04/11/24 12:03 Pulse Oximetry 99 04/11/24 12:03 Oxygen Delivery Room Air 04/11/24 12:03 Temperature 36.8 C 04/11/24 12:03 Pulse Rate 97 04/11/24 16:11 Respiratory Rate 21 H 04/11/24 16:11 Blood Pressure 153/88 H 04/11/24 16:11 Pulse Oximetry 96 04/11/24 16:11 Oxygen Delivery Room Air 04/11/24 12:03 Lab Data Lab results reviewed: Yes I reviewed the patient's lab results. 04/11/24 12:40 04/11/24 12:40 Labs: Lab Results 04/11/24 Range/Units 12:40 WBC 9.9 (4.5-10.0) K/mm3 RBC 4.25 (4.2-5.4) M/mm3 Hgb 13.0 (12.0-15.0) g/dL Hct 40.2 (37.0-47.0) % MCV 94.6 (80-100) fl MCH 30.6 (26-34) pg MCHC 32.3 (32-36) g/dl RDW 12.3 (11.5-14.5) % Plt Count 340 (150-375) k/mm3 MPV 8.5 (7.4-10.4) fl Immature Gran % (Auto) 0.3 (0-0.5) % Neut % (Auto) 65.0 (45.5-73.1) % Lymph % (Auto) 23.9 (18.3-44.2) % [place] % (Auto) 8.5 (2.6-8.5) % Eos % (Auto) 1.9 (0-4.4) % Baso % (Auto) 0.4 (0.2-1.2) % Lymph # (Auto) 2.36 (0.9-3.2) K/mm3 [place] # (Auto) 0.8 H (0.1-0.6) K/mm3 Eos # (Auto) 0.2 (0-0.3) K/mm3 Baso # (Auto) 0.0 (0.0-0.1) K/mm3 Abs Immat Gran (auto) 0.03 (0.00-0.031) K/mm3 Absolute Neuts (auto) 6.4 (1.3-6.7) K/mm3 Absolute Nucleated RBC 0.000 (0.0-0.012) K/mm3 Nucleated RBC % 0.0 (0.0-0.2) % PT 13.4 (11.1-14.7) Seconds INR 1.0 Sodium 139 (137-145) mmol/L Potassium 4.0 (3.4-5.0) mmol/L Chloride 102 (98-107) mmol/L Carbon Dioxide 31 H (22-30) mmol/L Anion Gap 6 (4-12) mmol/L BUN 20 H (7-17) mg/dL Creatinine 0.70 (0.7-1.0) mg/dL Estim Creat Clear Calc 67 ml/min Estimated GFR > 60 (59 - ) Glucose 91 (65-110) mg/dL Calcium 8.8 (8.4-10.2) mg/dL Total Bilirubin 0.6 (0.2-1.3) mg/dL AST 27 (14-36) U/L ALT 18 (6-35) U/L Alkaline Phosphatase 63 (38-126) U/L Total Protein 7.0 (6.3-8.2) g/dL Albumin 3.9 (3.5-5.1) g/dL Imaging Data Radiologist's impression: ITS Impressions Neck CTA 04/11/24 14:10 IMPRESSION: Normal CTA head and neck. Percent stenosis per NASCET criteria is 0%. Thrombosis of the left internal jugular vein. Nonvisualization of the left transverse dural sinus with small caliber of the left sigmoid sinus. Chest CTA 04/11/24 15:07 IMPRESSION: 1. Pulmonary embolism with low clot burden in the lateral basilar segmental pulmonary artery of the right lower lobe. ECG Data EKG #1: ECG completion date: 04/11/24 ECG completion time: 12:15 EKG Interpretation: tachycardia (101), no ST changes, normal QT, NL axis and no acute changes Discharge Plan Discharge Clinical Impression: Pulmonary embolism, Internal jugular (IJ) vein thromboembolism, acute Patient Disposition: Still a Patient Condition: Stable Patient Language: Beninese Prescriptions: No Action calcium carbonate [Calcium 500] 500 mg calcium (1,250 mg) tablet,chewable 500 mg PO DAILY albuterol sulfate 90 mcg/actuation HFA aerosol inhaler 2 inh inhalation Q4H PRN (Reason: shortness of breath or wheezing) Qty: 8.5 0RF tamsulosin 0.4 mg capsule 0.4 mg PO DAILY PRN sumatriptan succinate 50 mg tablet See Rx Instructions PO .COMPLEX Qty: 14 0RF Rx Instructions: take 1 tab at onset of headache; if no relief may repeat 1 tab after at least 2 hrs; max = 4 tabs/24 hr PO bupropion HCl 100 mg tablet 100 mg PO BID phentermine 37.5 mg capsule 37.5 mg PO DAILY Rx Instructions: must administer 30 minutes before or 1-2 hours after breakfast Follow-up/Referrals: Ashley Smith DO [Primary Care Provider] - Time of Disposition: 16:28
--- NOTE | 2024-04-11 17:30 | P.HP_ITS ---
H&P: HPI History of Present Illness Date/Time: 04/11/24 17:30 Chief Complaint: Neck Pain Narrative: 58 y/o F presents here with neck pain with PMH of kidney stones. The patient presents here from her PCP via EMS for further evaluation of neck pain and a DVT. The patient originally presented to her PCP today, 04/11, for further evaluation of a lump to the left side of her neck that is sore to the touch. She 1st noted the lump last night. She describes the pain as achy, radiating down the left side of her neck and left arm, constant. Endorses some associated dysphagia, pain with deep inspiration, sore throat, and mild left sided chest pain that also worsens with inspiration. Denies shortness of breath. She denies any recent surgeries, treatment for malignancy, long car rides or flights, or immobility in the last 2-3 months. 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 Denies any use of control or hormones. No hx of smoking/tobacco use. Denies any known family history of genetic disorders or clotting disorders. Initial VS at presentation: 98.2? F, HR 101, R 18, 155/94, and 99% on RA. ED workup showed: No leukocytosis, no anemia, INR 1.0, creatinine 0.7 and GFR >60. Outpatient US of the head/neck showed an occlusive appearing thrombus in the left internal jugular and subclavian veins. Neck CTA showed percent stenosis per NASCET criteria is 0% and thrombosis of the left internal jugular vein. Chest CTA showed a PE with low clot burden in the lateral basilar segmental pulmonary artery of the right lower lobe. Ultrasound of the left u pper extremity showed thrombus of the left internal jugular and left subclavian vein, otherwise no further clot burden. Review of Systems Review of Systems: All systems reviewed & are unremarkable except as noted in HPI and below PMFSH Past Medical History Medical History Vitamin D deficiency, unspecified Kidney stones Migraine Surgical History Surgical History H/O lithotripsy Hx of breast implants, bilateral Family History Family History Father Diabetes mellitus Hypertension Heart disease Mother Hypertension Sibling Diabetes mellitus Social History Social History Smoking status: Never smoker Second hand tobacco smoke exposure: No Alcohol intake: current Alcohol use details: rarely Substance use: never Do You Feel Safe in your Home?: Yes Lack of Transportation: No Lack of Food: Never True Current Housing: I Have Housing Concerned About Future Housing: No Difficulty Paying Gas/Electric Bills: No Difficulty Paying for Meds: No Currently Unemployed: No Education: Bachelor's Degree Difficulty w/ Childcare or Family Care: No Spiritual care concerns: No Meds Home Medications and Allergies Home Medications ?Medication ?Instructions ?Recorded ?Confirmed ?Type phentermine 37.5 mg capsule 37.5 mg PO DAILY 12/28/23 04/11/24 History Allergies Allergy/AdvReac Type Severity Reaction Status Date / Time Penicillins Allergy Unknown Verified 04/11/24 12:16 Vital Signs Vital Signs - 24 hr 04/11/24 12:03 04/11/24 12:57 04/11/24 14:20 Temperature 98.2 F Pulse Rate 101 H 92 99 Respiratory Rate 18 20 97 H Blood Pressure 155/94 H 150/88 H Pulse Oximetry 99 96 20 L Oxygen Delivery Room Air 04/11/24 15:30 04/11/24 16:11 Temperature Pulse Rate 98 97 Respiratory Rate 17 21 H Blood Pressure 152/90 H 153/88 H Pulse Oximetry 97 96 Oxygen Delivery Exam Const: General: comfortable and no acute distress Other: , female, nontoxic appearance HENMT: Face/Nose/Sinus: Normal nares present Mouth: Yes moist mucous membranes Other: Tonsils free of erythema, no swelling noted. Eyes: General: appearance normal, both eyes and all related structures Sclera: sclerae normal Pupils: Equal, round and reactive pupils present EOM: EOMs intact bilaterally Resp: Effort & Inspection: normal respiratory effort Auscultation: clear to auscultation bilaterally Cardio: Rate: regular rate Rhythm: regular rhythm Other: S1-S2 present without murmur, rub, ectopy Skin: General skin exam: normal color and no rashes or lesions noted Wounds: no wounds Neuro: Speech: normal speech Motor exam (neuro): 5/5 motor strength present throughout Sensory Exam: normal sensation Other: A&O x4 Extrem: General: normal to inspection Other: Radial pulses intact. DP pulses intact bilaterally. Psych: Mental Status: mental status grossly normal Affect: Anxious affect present Other: Good insight and judgment, pleasant H&P: Results Labs Labs: Short CBC 04/11/24 Range/Units 12:40 WBC 9.9 (4.5-10.0) K/mm3 Hgb 13.0 (12.0-15.0) g/dL Hct 40.2 (37.0-47.0) % Plt Count 340 (150-375) k/mm3 BMP 04/11/24 12:40 Sodium 139 Potassium 4.0 Chloride 102 Carbon Dioxide 31 H BUN 20 H Creatinine 0.70 Glucose 91 Calcium 8.8 Liver Function 04/11/24 Range/Units 12:40 Total Bilirubin 0.6 (0.2-1.3) mg/dL AST 27 (14-36) U/L ALT 18 (6-35) U/L Alkaline Phosphatase 63 (38-126) U/L Albumin 3.9 (3.5-5.1) g/dL Assessment and Plan Assessment and plan (1) Internal jugular (IJ) vein thromboembolism, acute: Qualifiers: Laterality: left Qualified Code(s): I82.C12 - Acute embolism and thrombosis of left internal jugular vein Code(s): I82.C19 - Acute embolism and thrombosis of unspecified internal jugular vein Status: Acute Assessment and Plan: - Head/neck US (outpatient, 04/11): Occlusive appearing thrombus in the left internal jugular and subclavian veins. - Neck CTA: Normal CTA head and neck. Percent stenosis per NASCET criteria is 0%. Thrombosis of the left internal jugular vein. Nonvisualization of the left transverse dural sinus with small caliber of the left sigmoid sinus. - Chest CTA: Pulmonary embolism with low clot burden in the lateral basilar segmental pulmonary artery of the right lower lobe. - US of the LUE: thrombosis of the left internal jugular and left subclavian vein. - started on Eliquis BID - monitor coags, add TSH w/reflex - patient educated on stroke symptoms (2) Pulmonary embolism: Qualifiers: Acute cor pulmonale presence: without acute cor pulmonale Chronicity: acute Pulmonary embolism type: unspecified Qualified Code(s): I26.99 - Other pulmonary embolism without acute cor pulmonale Code(s): I26.99 - Other pulmonary embolism without acute cor pulmonale Status: Acute Assessment and Plan: - see above - no current O2 requirement - echo ordered Plan Diet: Regular GI Prophylaxis: Not currently indicated DVT Prophylaxis: Eliquis b.i.d. Lines: Peripheral Code Status: Full code Quality VTE Prophylaxis VTE prophylaxis: pharmacologic ordered Hospitalist MIPS Advance Care Plan I have confirmed that the patient's Advanced Care Plan is present, code status is documented, or surrogate decision maker is listed in patient medical record.: Yes Medication Reconciliation I have utilized all available resources to obtain, update and review the patients current medications (includes all prescriptions, OTC, herbals, cannabis, and nutritional supplements).: Yes
[2024-04-11] MEDS: APIXABAN 5 MG TABLET 10 MG PO (20:46)
[2024-04-11] MEDS: ACETAMINOPHEN 325 MG TABLET 650 MG PO (23:41)
[2024-04-12] VITALS (19 sets, daily range): BP systolic 121–146; BP diastolic 81–92; PULSE 70–107; RESP 17–18; TEMP 36.7–37.4; O2SAT 94–100
--- NOTE | 2024-04-12 | ECHO_ITS ---
Patient Info Name: Luci Ellis Age: 58 years : 1965 Gender: Female Ht: 64 in Wt: 156 lbs BSA: 1.80 m2 HR: 85 bpm BP: 122 / 89 mmHg Technical Quality: Fair Exam Date: 04/12/2024 10:51 AM Exam Location: Echo Lab Patient Status: Outpatient Admit Date: 04/11/2024 Staff Ordering Physician: April Castellanos APRN Apartment Leasing Consultant: Otilia Mak RDCS Attending Provider: Mau Fitzgerald MD Referring Physician: Jasmin ANDERSON; Exam Type: CA echo dop color flow w con Study Info Indications - DVT, PE Complete two-dimensional, color flow and Doppler transthoracic echocardiogram is performed with contrast to opacify the left ventricle and to improve the deliniation of the left ventricle endocardial borders. Contrast/Agitated Saline Contrast/Ag. Saline: Definity Amount: 2.00 ml Existing IV Access: Yes Summary 1. Definity contrast administered improved wall motion interpretation. 2. Left ventricular chamber dimension is normal. 3. Left ventricular systolic function is normal, estimated at 60-65%. 4. There is mild concentric increased left ventricular wall thickness. 5. The left ventricular diastolic function is grade I diastolic dysfunction. 6. E/e' 4 is not elevated. Left Ventricle E/e' 4 is not elevated. Definity contrast administered improved wall motion interpretation. Left ventricular chamber dimension is normal. Left ventricular systolic function is normal, estimated at 60-65%. There is mild concentric increased left ventricular wall thickness. The left ventricular diastolic function is grade I diastolic dysfunction. Right Ventricle Right ventricular systolic function is normal and with normal TAPSE 2.3 cm. Right ventricular chamber dimension is normal. Left Atria Left atrial chamber dimension is normal. Right Atria Right atrial chamber dimension is normal. Aortic Valve The aortic valve is trileaflet. There is no aortic valve stenosis. There is no aortic valve regurgitation. Pulmonic Valve There is no pulmonic regurgitation. Mitral Valve There is no mitral valve stenosis. There is no mitral valve regurgitation. Tricuspid Valve There is no tricuspid valve regurgitation. Pericardium/Pleural There is no pericardial effusion. Inferior Vena Cava Normal inferior vena cava with >50% collapse upon inspiration consistent with normal right atrial pressure, 5 mmHg. Aorta The aortic root size at the sinus of Valsalva is normal. Left Ventricular Outflow Tract Name Value Normal LVOT 2D LVOT Diameter 1.72 cm LVOT Doppler LVOT Peak Gradient 6 mmHg LVOT Mean Gradient 4 mmHg LVOT VTI 22.71 cm LVOT VTI/AV VTI Ratio 0.91 LVOT Stroke Volume 52.93 ml LVOT CO 4.73 l/min LVOT CI 2.62 L/min/m2 Pulmonic Valve Name Value Normal RVOT Doppler RVOT Peak Gradient 3 mmHg PV Doppler PV Peak Gradient 4 mmHg Mitral Valve Name Value Normal MV Doppler MV Decel [place] 530.72 cm/s2 MV PHT 0 s MV Area (PHT) 8.40 cm2 4.00-5.00 MV Diastolic Function MV E Peak Velocity 47.96 cm/s MV A Peak Velocity 76.38 cm/s MV E/A 0.63 MV Decel Time 0 s MV Annular TDI MV E/e' (Septal) 5.38 <=8.00 MV E/e' (Lateral) 4.34 <=8.00 MV E/e' (Average) 4.86 Tricuspid Valve Name Value Normal Estimated PAP/RSVP RA Pressure 5 mmHg <=5 Aorta Name Value Normal Ascending Aorta Ao Root Diameter (MM) 3.26 cm Ao Root Diam Index (MM) 1.81 cm/m2 Aortic Valve Name Value Normal AV Doppler AV Peak Velocity 135.60 cm/s AV Peak Gradient 7 mmHg AV Mean Gradient 5 mmHg AV VTI 24.91 cm AV Area (Cont Eq VTI) 2.13 cm2 >=3.00 AV Area (Cont Eq Tam) 2.13 cm2 AV Regurgitation 2D LVOT Area 2.33 cm2 Ventricles Name Value Normal LV Dimensions 2D/MM IVS Diastolic Thickness (2D) 0.97 cm 0.60-1.00 LVID Diastole (2D) 3.79 cm 3.80-5.20 LVIW Diastolic Thickness (2D) 1.31 cm 0.60-0.90 LVID Systole (2D) 2.90 cm 2.20-3.50 LVOT Diameter 1.72 cm LV Mass (2D Cubed) 141.15 g 67.00-162.00 LV Mass Index (2D Cubed) 0.01 g/cm2 0.00-0.01 Relative Wall Thickness (2D) 0.69 LV Fractional Shortening/Ejection Fraction 2D/MM LV Fractional Shortening (2D) 26 % 27-45 LV EF (2D Teicholz) 52 % 54-74 LV Diastolic Volume (4C MOD) 50.13 ml LV EF (4C MOD) 34 % LV Diastolic Volume (2C MOD) 34.48 ml LV EF (2C MOD) 54 % LV Diastolic Volume (BP MOD) 43.16 ml 46.00-106.00 LV Diastolic Volume Index (BP MOD) 0.02 l/m2 0.03-0.06 LV Systolic Volume (BP MOD) 24.27 ml 14.00-42.00 LV Systolic Volume Index (BP MOD) 0.01 l/m2 0.01-0.02 LV EF (BP MOD) 44 % 54-74 LV Diastolic Length (4C) 8.21 cm LV Systolic Length (4C) 7.25 cm LV Stroke Volume (4C MOD) 16.82 ml Atria Name Value Normal LA Dimensions LA Dimension (MM) 3.26 cm 2.70-3.80 LA Volume (4C A-L) 33.11 ml LA Volume (BP A-L) 33.91 ml RA Dimensions RA Area (4C) 15.11 cm2 <=18.00 Report Signatures
[2024-04-12 04:57] LABS: Basophils Percent Auto 0.3 % (0.2-1.2); Eosinophils Absolute Auto 0.1 K/mm3 (0-0.3); Eosinophils Percent Auto 1.5 % (0-4.4); Hematocrit 39.5 % (37.0-47.0); Hemoglobin 12.9 g/dL (12.0-15.0); Immature Granulocyte Absolute 0.03 K/mm3 (0.00-0.031); Immature Granulocyte Percent A 0.3 % (0-0.5); Lymphocytes Absolute Auto 2.62 K/mm3 (0.9-3.2); Lymphocytes Percent Auto 29.7 % (18.3-44.2); Mean Corpuscular HGB Conc 32.7 g/dl (32-36); Mean Corpuscular Hemoglobin 30.8 pg (26-34); Mean Corpuscular Volume 94.3 fl (80-100); Mean Platelet Volume 8.2 fl (7.4-10.4); Monocytes Absolute Auto 0.9 K/mm3 (0.1-0.6); Monocytes Percent Auto 10.3 % (2.6-8.5); Neutrophils Absolute Auto 5.1 K/mm3 (1.3-6.7); Neutrophils Percent Auto 57.9 % (45.5-73.1); Platelet Count Result 310 k/mm3 (150-375); Red Blood Count 4.19 M/mm3 (4.2-5.4); Red Cell Distribution Width 12.2 % (11.5-14.5); White Blood Count 8.8 K/mm3 (4.5-10.0)
[2024-04-12 05:04] LABS: INR 1.3; Prothrombin Time 16.2 Seconds (11.1-14.7)
[2024-04-12 05:05] LABS: Partial Thromboplastin Time 33.4 Seconds (22.3-36.8)
[2024-04-12 05:11] LABS: Anion Gap 6 mmol/L (4-12); Blood Urea Nitrogen 17 mg/dL (7-17); Calcium 8.4 mg/dL (8.4-10.2); Carbon Dioxide 29 mmol/L (22-30); Chloride 101 mmol/L (98-107); Estimated CRCL calculation 67 ml/min; Estimated Glomerular Filt Rate > 60; Glucose 88 mg/dL (65-110); Potassium 3.9 mmol/L (3.4-5.0); Sodium 136 mmol/L (137-145)
[2024-04-12] MEDS: ACETAMINOPHEN 325 MG TABLET 650 MG PO ×3 (06:59→20:13)
--- NOTE | 2024-04-12 09:54 | P.PNIM_ITS ---
Progress Note: A&P Assessment and Plan (1) Internal jugular (IJ) vein thromboembolism, acute: Qualifiers: Laterality: left Qualified Code(s): I82.C12 - Acute embolism and thrombosis of left internal jugular vein Code(s): I82.C19 - Acute embolism and thrombosis of unspecified internal jugular vein Status: Acute Assessment and Plan: - Head/neck US (outpatient, 04/11): Occlusive appearing thrombus in the left internal jugular and subclavian veins. - Neck CTA: Normal CTA head and neck. Percent stenosis per NASCET criteria is 0%. Thrombosis of the left internal jugular vein. Nonvisualization of the left transverse dural sinus with small caliber of the left sigmoid sinus. - Chest CTA: Pulmonary embolism with low clot burden in the lateral basilar segmental pulmonary artery of the right lower lobe. - US of the LUE: thrombosis of the left internal jugular and left subclavian vein. - started on Eliquis BID - monitor coags, add TSH w/reflex - patient educated on stroke symptoms (2) Pulmonary embolism: Qualifiers: Acute cor pulmonale presence: without acute cor pulmonale Chronicity: acute Pulmonary embolism type: unspecified Qualified Code(s): I26.99 - Other pulmonary embolism without acute cor pulmonale Code(s): I26.99 - Other pulmonary embolism without acute cor pulmonale Status: Acute Assessment and Plan: - see above - no current O2 requirement - echo ordered Plan Diet: Regular GI Prophylaxis: Not currently indicated DVT Prophylaxis: Eliquis b.i.d. Lines: Peripheral Code Status: Full code Subjective Date/time seen: 04/12/24 09:54 Interval history: Evaluated the patient at the bedside. Patient denies any recent surgery, hormone replacement therapy, travel, any family history of coagulation issues and up-to-date on her preventive care measures. Denies any abnormality in the Pap smear, mammogram or Cologuard which she performed 5 years ago. She is scheduled for colonoscopy. Consulted Oncology for coagulation workup. Pending echocardiogram Review of Systems Review of Systems: All systems reviewed & are unremarkable except as noted in HPI and below Exam Const: General: comfortable and no acute distress Other: , female, nontoxic appearance HENMT: Face/Nose/Sinus: Normal nares present Mouth: Yes moist mucous membranes Other: Tonsils free of erythema, no swelling noted. Eyes: General: appearance normal, both eyes and all related structures Sclera: sclerae normal Pupils: Equal, round and reactive pupils present EOM: EOMs intact bilaterally Resp: Effort & Inspection: normal respiratory effort Auscultation: clear to auscultation bilaterally Cardio: Rate: regular rate Rhythm: regular rhythm Other: S1-S2 present without murmur, rub, ectopy Skin: General skin exam: normal color and no rashes or lesions noted Wounds: no wounds Neuro: Cranial nerves: Yes Equal, round and reactive pupils present Speech: normal speech Motor exam (neuro): 5/5 motor strength present throughout Sensory Exam: normal sensation Other: A&O x4 Extrem: General: normal to inspection Other: Radial pulses intact. DP pulses intact bilaterally. Psych: Mental Status: mental status grossly normal Affect: Anxious affect present Other: Good insight and judgment, pleasant Objective Data Vital Signs Vital Signs: Vital Signs - 24 hr 04/11/24 12:03 04/11/24 12:57 04/11/24 14:20 Temperature 98.2 F Pulse Rate 101 H 92 99 Respiratory Rate 18 20 97 H Blood Pressure 155/94 H 150/88 H Pulse Oximetry 99 96 20 L Oxygen Delivery Room Air 04/11/24 15:30 04/11/24 16:11 04/11/24 17:33 Temperature Pulse Rate 98 97 90 Respiratory Rate 17 21 H 14 Blood Pressure 152/90 H 153/88 H 150/89 H Pulse Oximetry 97 96 99 Oxygen Delivery 04/11/24 17:48 04/11/24 18:00 04/11/24 19:40 Temperature 98.6 F 98.3 F Pulse Rate 84 95 103 H Respiratory Rate 16 18 Blood Pressure 143/84 H 142/91 H Pulse Oximetry 98 96 Oxygen Delivery 04/11/24 19:57 04/11/24 20:00 04/11/24 23:23 Temperature 98.8 F Pulse Rate 101 H 94 Respiratory Rate 17 Blood Pressure 141/85 H Pulse Oximetry 96 Oxygen Delivery Room Air 04/12/24 00:00 04/12/24 00:00 04/12/24 03:42 Temperature 98.4 F Pulse Rate 88 86 Respiratory Rate 18 Blood Pressure 121/89 Pulse Oximetry 97 Oxygen Delivery Room Air 04/12/24 04:00 04/12/24 04:00 04/12/24 06:00 Temperature Pulse Rate 81 101 H Respiratory Rate Blood Pressure Pulse Oximetry Oxygen Delivery Room Air 04/12/24 08:13 Temperature 98.6 F Pulse Rate 96 Respiratory Rate 18 Blood Pressure 143/92 H Pulse Oximetry 94 Oxygen Delivery Intake/Output Intake/Output: Intake & Output 04/09/24 04/10/24 04/11/24 04/12/24 23:59 23:59 23:59 23:59 Intake Total 240 240 Output Total 2 Balance 240 238 Meds/Results Medications: Active Medications Generic Name Dose Route Start Last Admin Trade Name Freq PRN Reason Stop Dose Admin Acetaminophen 650 mg 04/11/24 16:42 04/12/24 06:59 Acetaminophen 325 Mg Tablet PO 650 mg Q4H PRN Administration Mild Pain (1-3) or Fever Apixaban 10 mg 04/11/24 21:00 04/11/24 20:46 Apixaban 5 Mg Tablet PO 10 mg Q12HR JASON Administration Morphine Sulfate 2 mg 04/11/24 16:42 Morphine Sulfate (*Crx) 2 Mg/Ml Inj IV PUSH Q2H PRN Pain Rated 7-10 Perflutren Lipid Microsphere 0 ml 04/11/24 17:40 Perflutren Lipid Microspheres 1.5 Ml Vial Diluted To 10 Ml Total Volume IV PUSH 04/14/24 17:40 ONCE PRN adequate visualization Protocol Radiology Results: ITS Impressions Neck CTA 04/11/24 14:10 IMPRESSION: Normal CTA head and neck. Percent stenosis per NASCET criteria is 0%. Thrombosis of the left internal jugular vein. Nonvisualization of the left transverse dural sinus with small caliber of the left sigmoid sinus. Chest CTA 04/11/24 15:07 IMPRESSION: 1. Pulmonary embolism with low clot burden in the lateral basilar segmental pulmonary artery of the right lower lobe. Venous Doppler Study 04/11/24 17:17 IMPRESSION: Thrombosis of the left internal jugular and left subclavian vein. Labs Labs: Laboratory Results - last 24 hr 04/11/24 04/12/24 12:40 04:30 WBC 9.9 8.8 RBC 4.25 4.19 L Hgb 13.0 12.9 Hct 40.2 39.5 MCV 94.6 94.3 MCH 30.6 30.8 MCHC 32.3 32.7 RDW 12.3 12.2 Plt Count 340 310 MPV 8.5 8.2 Immature Gran % (Auto) 0.3 0.3 Neut % (Auto) 65.0 57.9 Lymph % (Auto) 23.9 29.7 [place] % (Auto) 8.5 10.3 H Eos % (Auto) 1.9 1.5 Baso % (Auto) 0.4 0.3 Lymph # (Auto) 2.36 2.62 [place] # (Auto) 0.8 H 0.9 H Eos # (Auto) 0.2 0.1 Baso # (Auto) 0.0 0.0 Abs Immat Gran (auto) 0.03 0.03 Absolute Neuts (auto) 6.4 5.1 Absolute Nucleated RBC 0.000 0.000 Nucleated RBC % 0.0 0.0 PT 13.4 16.2 H D INR 1.0 1.3 APTT 33.4 Sodium 139 136 L Potassium 4.0 3.9 Chloride 102 101 Carbon Dioxide 31 H 29 Anion Gap 6 6 BUN 20 H 17 Creatinine 0.70 0.71 Estim Creat Clear Calc 67 67 Estimated GFR > 60 > 60 Glucose 91 88 Calcium 8.8 8.4 Total Bilirubin 0.6 AST 27 ALT 18 Alkaline Phosphatase 63 Total Protein 7.0 Albumin 3.9 TSH (Reflex) 1.070 Quality VTE Prophylaxis VTE prophylaxis: pharmacologic ordered Hospitalist MIPS Advance Care Plan I have confirmed that the patient's Advanced Care Plan is present, code status is documented, or surrogate decision maker is listed in patient medical record.: Yes Medication Reconciliation I have utilized all available resources to obtain, update and review the patients current medications (includes all prescriptions, OTC, herbals, cannabis, and nutritional supplements).: Yes
[2024-04-12] MEDS: APIXABAN 5 MG TABLET 10 MG PO ×2 (10:04→20:13)
[2024-04-12] MEDS: PERFLUTREN LIPID MICROSPHERES 1.5 ML VIAL DILUTED TO 10 ML TOTAL VOLUME IV PUSH (11:35)
--- NOTE | 2024-04-12 11:57 | IVDEFINITY ---
Prior to administration of IV Definity the patient was educated on the risks and benefits of the imaging enhancing agent including potential adverse side effects. The patient verbalized understanding. Allergies were verified. No exclusion criteria were identified and at least one of the following inclusion criteria were met: 1) physician request, 2) patient technically difficult to image (per the [place] [employer] guidelines of two or more segments not discernable within the apical view), or 3) questionable left ventricular function. ?
[2024-04-13] VITALS (19 sets, daily range): BP systolic 122–144; BP diastolic 70–87; PULSE 73–106; RESP 18; TEMP 36.8–37.6; O2SAT 95–98
[2024-04-13 05:06] LABS: Hematocrit 39.9 % (37.0-47.0); Hemoglobin 12.8 g/dL (12.0-15.0); Mean Corpuscular HGB Conc 32.1 g/dl (32-36); Mean Corpuscular Hemoglobin 30.1 pg (26-34); Mean Corpuscular Volume 93.9 fl (80-100); Mean Platelet Volume 8.1 fl (7.4-10.4); Platelet Count Result 295 k/mm3 (150-375); Red Blood Count 4.25 M/mm3 (4.2-5.4); Red Cell Distribution Width 12.2 % (11.5-14.5); White Blood Count 8.4 K/mm3 (4.5-10.0)
[2024-04-13 05:22] LABS: Alanine Aminotransferase 14 U/L (6-35); Albumin Level 3.9 g/dL (3.5-5.1); Alkaline Phosphatase 58 U/L (38-126); Anion Gap 5 mmol/L (4-12); Aspartate Amino Transferase 21 U/L (14-36); Bilirubin,Total 0.7 mg/dL (0.2-1.3); Blood Urea Nitrogen 15 mg/dL (7-17); Calcium 8.5 mg/dL (8.4-10.2); Carbon Dioxide 27 mmol/L (22-30); Chloride 104 mmol/L (98-107); Estimated CRCL calculation 80 ml/min; Estimated Glomerular Filt Rate > 60; Glucose 89 mg/dL (65-110); Sodium 136 mmol/L (137-145)
[2024-04-13] MEDS: APIXABAN 5 MG TABLET 10 MG PO ×2 (09:08→21:16)
[2024-04-13] MEDS: SODIUM CHLORIDE 0.9% IV 1,000 ML 70 ML IV CONT (09:08)
--- NOTE | 2024-04-13 10:19 | ECG_ITS ---
Test Date: 2024-04-13 10:47:27 Measurements Intervals [place] Rate: 75 P: 59 CO: 164 QRS: 54 QRSD: 87 T: 51 QT: 363 QTc: 407 Interpretive Statements SINUS RHYTHM POSSIBLE LEFT ATRIAL ENLARGEMENT Compared to ECG 04/11/2024 12:15:14 NO SIGNFICANT CHANGES Electronically Signed On 04-13-2024 14:51:08 [employer] by Katie Alvarez M.D.
[2024-04-13 11:02] LABS: Troponin I < 0.012 ng/mL (0.000-0.034)
--- NOTE | 2024-04-13 12:33 | P.PNIM_ITS ---
Progress Note: A&P Assessment and Plan (1) Internal jugular (IJ) vein thromboembolism, acute: Qualifiers: Laterality: left Qualified Code(s): I82.C12 - Acute embolism and thrombosis of left internal jugular vein Code(s): I82.C19 - Acute embolism and thrombosis of unspecified internal jugular vein Status: Acute Assessment and Plan: - Head/neck US (outpatient, 04/11): Occlusive appearing thrombus in the left internal jugular and subclavian veins. - Neck CTA: Normal CTA head and neck. Percent stenosis per NASCET criteria is 0%. Thrombosis of the left internal jugular vein. Nonvisualization of the left transverse dural sinus with small caliber of the left sigmoid sinus. - Chest CTA: Pulmonary embolism with low clot burden in the lateral basilar segmental pulmonary artery of the right lower lobe. - US of the LUE: thrombosis of the left internal jugular and left subclavian vein. - started on Eliquis BID - monitor coags, add TSH w/reflex - patient educated on stroke symptoms -Ordered Head CTA and Brain MRI (2) Pulmonary embolism: Qualifiers: Acute cor pulmonale presence: without acute cor pulmonale Chronicity: acute Pulmonary embolism type: unspecified Qualified Code(s): I26.99 - Other pulmonary embolism without acute cor pulmonale Code(s): I26.99 - Other pulmonary embolism without acute cor pulmonale Status: Acute Assessment and Plan: - see above - no current O2 requirement - echo ordered Plan Diet: Regular GI Prophylaxis: Not currently indicated DVT Prophylaxis: Eliquis b.i.d. Lines: Peripheral Code Status: Full code Subjective Date/time seen: 04/13/24 12:33 Interval history: Patient complains of pleuritic chest pain. Performed EKG and troponin which is negative. Yesterday around 6.50 PM nurse called about headache and left side weakness. Performed Head CT which was negative. Today during evaluation she complained about left side uncomfortableness which she refers from happening last 2 days. No evidence of neurologic deficits. Ordered CTA head and MRI of Daniel both shows no significant abnormalities Review of Systems Review of Systems: All systems reviewed & are unremarkable except as noted in HPI and below Exam Const: General: comfortable and no acute distress Other: , female, nontoxic appearance HENMT: Face/Nose/Sinus: Normal nares present Mouth: Yes moist mucous membranes Other: Tonsils free of erythema, no swelling noted. Eyes: General: appearance normal, both eyes and all related structures Sclera: sclerae normal Pupils: Equal, round and reactive pupils present EOM: EOMs intact bilaterally Resp: Effort & Inspection: normal respiratory effort Auscultation: clear to auscultation bilaterally Cardio: Rate: regular rate Rhythm: regular rhythm Other: S1-S2 present without murmur, rub, ectopy Skin: General skin exam: normal color and no rashes or lesions noted Wounds: no wounds Neuro: Cranial nerves: Yes Equal, round and reactive pupils present Speech: normal speech Motor exam (neuro): 5/5 motor strength present throughout Sensory Exam: normal sensation Other: A&O x4 Extrem: General: normal to inspection Other: Radial pulses intact. DP pulses intact bilaterally. Psych: Mental Status: mental status grossly normal Affect: Anxious affect present Other: Good insight and judgment, pleasant Objective Data Vital Signs Vital Signs: Vital Signs - 24 hr 04/12/24 14:00 04/12/24 15:39 04/12/24 16:00 Temperature 99.4 F Pulse Rate 84 85 107 H Respiratory Rate 18 Blood Pressure 137/86 Pulse Oximetry 96 Oxygen Delivery 04/12/24 16:00 04/12/24 18:00 04/12/24 19:22 Temperature 98.1 F Pulse Rate 96 90 Respiratory Rate 18 Blood Pressure 146/81 H Pulse Oximetry 96 Oxygen Delivery Room Air 04/12/24 20:00 04/12/24 20:10 04/12/24 22:00 Temperature Pulse Rate 90 90 70 Respiratory Rate 18 Blood Pressure Pulse Oximetry 96 Oxygen Delivery Room Air 04/12/24 23:45 04/12/24 23:52 04/13/24 00:00 Temperature 98.1 F Pulse Rate 77 81 74 Respiratory Rate 18 17 Blood Pressure 140/84 Pulse Oximetry 96 99 Oxygen Delivery Room Air 04/13/24 02:00 04/13/24 03:55 04/13/24 04:00 Temperature 98.3 F Pulse Rate 73 98 98 Respiratory Rate 18 18 Blood Pressure 122/70 Pulse Oximetry 96 96 Oxygen Delivery Room Air 04/13/24 04:00 04/13/24 06:00 04/13/24 07:42 Temperature 98.5 F Pulse Rate 79 84 84 Respiratory Rate 18 Blood Pressure 134/84 Pulse Oximetry 98 Oxygen Delivery 04/13/24 08:00 04/13/24 09:13 04/13/24 10:00 Temperature Pulse Rate 92 79 Respiratory Rate Blood Pressure Pulse Oximetry 97 Oxygen Delivery Room Air 04/13/24 11:09 04/13/24 12:00 Temperature 98.4 F Pulse Rate 81 103 H Respiratory Rate 18 Blood Pressure 138/87 Pulse Oximetry 95 Oxygen Delivery Intake/Output Intake/Output: Intake & Output 04/10/24 04/11/24 04/12/24 04/13/24 23:59 23:59 23:59 23:59 Intake Total 240 1220 600 Output Total 2 Balance 240 1218 600 Meds/Results Medications: Active Medications Generic Name Dose Route Start Last Admin Trade Name Freq PRN Reason Stop Dose Admin Acetaminophen 650 mg 04/11/24 16:42 04/12/24 20:13 Acetaminophen 325 Mg Tablet PO 650 mg Q4H PRN Administration Mild Pain (1-3) or Fever Apixaban 10 mg 04/11/24 21:00 04/13/24 09:08 Apixaban 5 Mg Tablet PO 10 mg Q12HR JASON Administration Sodium Chloride 1,000 mls @ 70 mls/hr 04/13/24 07:25 04/13/24 09:08 Normal Saline Iv IV CONT 70 mls/hr .[id number] JASON Administration Morphine Sulfate 2 mg 04/11/24 16:42 Morphine Sulfate (*Crx) 2 Mg/Ml Inj IV PUSH Q2H PRN Pain Rated 7-10 Radiology Results: ITS Impressions Neck CTA 04/11/24 14:10 IMPRESSION: Normal CTA head and neck. Percent stenosis per NASCET criteria is 0%. Thrombosis of the left internal jugular vein. Nonvisualization of the left transverse dural sinus with small caliber of the left sigmoid sinus. Chest CTA 04/11/24 15:07 IMPRESSION: 1. Pulmonary embolism with low clot burden in the lateral basilar segmental pulmonary artery of the right lower lobe. Head CT 04/12/24 18:56 IMPRESSION: 1. No acute intracranial abnormality. Venous Doppler Study 04/13/24 10:47 IMPRESSION: Negative bilateral lower extremity venous US. No deep vein thrombosis. Labs Labs: Laboratory Results - last 24 hr 04/13/24 04/13/24 04:50 10:32 WBC 8.4 RBC 4.25 Hgb 12.8 Hct 39.9 MCV 93.9 MCH 30.1 MCHC 32.1 RDW 12.2 Plt Count 295 MPV 8.1 Sodium 136 L Potassium 4.0 Chloride 104 Carbon Dioxide 27 Anion Gap 5 BUN 15 Creatinine 0.59 L Estim Creat Clear Calc 80 Estimated GFR > 60 Glucose 89 Calcium 8.5 Total Bilirubin 0.7 AST 21 ALT 14 Alkaline Phosphatase 58 Troponin I < 0.012 Total Protein 7.0 Albumin 3.9 Quality VTE Prophylaxis VTE prophylaxis: pharmacologic ordered Hospitalist [facility] Advance Care Plan I have confirmed that the patient's Advanced Care Plan is present, code status is documented, or surrogate decision maker is listed in patient medical record.: Yes Medication Reconciliation I have utilized all available resources to obtain, update and review the patients current medications (includes all prescriptions, OTC, herbals, canna bis, and nutritional supplements).: Yes
[2024-04-13 15:43] LABS: Troponin I < 0.012 ng/mL (0.000-0.034)
--- NOTE | 2024-04-13 16:56 | WPDONCCN ---
Assessment and Plan Assessment and plan (1) Pulmonary embolism: Qualifiers: Acute cor pulmonale presence: without acute cor pulmonale Chronicity: acute Pulmonary embolism type: unspecified Qualified Code(s): I26.99 - Other pulmonary embolism without acute cor pulmonale Code(s): I26.99 - Other pulmonary embolism without acute cor pulmonale Status: Acute Assessment and Plan: This is a pleasant 58-year-old female with been in remarkably good health with no history of hypercoagulable state and there is no family history of thromboembolic events came into the hospital with complain of left-sided neck discomfort. She denies any recent travel history, injury and surgery. She has not been taking any female hormones. CTA neck showed thrombosis of the left internal jugular vein and CTA chest showed low clot burden in segmental pulmonary artery of the right lower lobe. Doppler studies of the left upper extremity showed thrombus in the left internal jugular and subclavian vein. Patient was started on Eliquis with some improvement in the left neck pain. Have discussed the differential diagnosis of thromboembolic events. I cannot order the hypercoagulable workup at this time due to anticoagulation therapy and active blood clot. I will order CT abdomen and pelvis to rule out any underlying malignancy. She will see us back in the office in next 3-4 weeks and imaging studies and hypercoagulable workup will be performed as an outpatient. I have provided her my office information for follow-up. (2) Internal jugular (IJ) vein thromboembolism, acute: Qualifiers: Laterality: left Qualified Code(s): I82.C12 - Acute embolism and thrombosis of left internal jugular vein Code(s): I82.C19 - Acute embolism and thrombosis of unspecified internal jugular vein Status: Acute HPI Data of Consult Date/Time: 04/13/24 16:56 Requesting Physician: Mau Fitzgerald MD Primary Care Provider: Ashley Smith DO Consult Narrative Narrative: Luci Ellis is a 58 year old female who has been in good health except history of migraine and vitamin-D deficiency came into the hospital with complain of the left-sided neck pain. She has no previous history of thromboembolic events. She denies any recent injury trauma and surgery. She has not been taking any female hormones. There is no family history of thromboembolic events. Patient had neck CTA done that showed stenosis and thrombosis of the left internal jugular vein. Chest CTA showed PE with a low clot burden in basilar 7 segmental pulmonary artery of the right lower lobe. She was started on anticoagulation therapy and already feeling some improvement in the left neck swelling and discomfort. She denies any bleeding and bruising. Denies any recent weight changes. No history of melena hematochezia. She had a Cologuard test done at age of 52 and came back negative. She has been getting routine mammogram and it all came back negative for malignancy. She has no history of malignancy. Review of Systems Review of Systems: Review of system as per HPI otherwise negative [facility] Past Medical History Medical History Vitamin D deficiency, unspecified Kidney stones Migraine Surgical History Surgical History H/O lithotripsy Hx of breast implants, bilateral Family History Family History Father Diabetes mellitus Hypertension Heart disease Mother Hypertension Sibling Diabetes mellitus Social History Social History Smoking status: Never smoker Second hand tobacco smoke exposure: No Alcohol intake: current Alcohol use details: rarely Substance use: never Do You Feel Safe in your Home?: Yes Lack of Transportation: No Lack of Food: Never True Current Housing: I Have Housing Concerned About Future Housing: No Difficulty Paying Gas/Electric Bills: No Difficulty Paying for Meds: No Currently Unemployed: No Education: Bachelor's Degree Difficulty w/ Childcare or Family Care: No Spiritual care concerns: No Meds Home Medications and Allergies Home Medications ?Medication ?Instructions ?Recorded ?Confirmed ?Type phentermine 37.5 mg capsule 37.5 mg PO DAILY 12/28/23 04/11/24 History sumatriptan succinate 50 mg tablet 50 mg PO .At onset of migraine PRN 04/12/24 04/12/24 History migraine headache Allergies Allergy/AdvReac Type Severity Reaction Status Date / Time Penicillins Allergy Unknown Verified 04/11/24 12:16 Vital Signs Vital Signs - 24 hr 04/12/24 18:00 04/12/24 19:22 04/12/24 20:00 Temperature 36.7 C Pulse Rate 96 90 90 Respiratory Rate 18 Blood Pressure 146/81 H Pulse Oximetry 96 Oxygen Delivery 04/12/24 20:10 04/12/24 22:00 04/12/24 23:45 Temperature Pulse Rate 90 70 77 Respiratory Rate 18 18 Blood Pressure Pulse Oximetry 96 96 Oxygen Delivery Room Air Room Air 04/12/24 23:52 04/13/24 00:00 04/13/24 02:00 Temperature 36.7 C Pulse Rate 81 74 73 Respiratory Rate 17 Blood Pressure 140/84 Pulse Oximetry 99 Oxygen Delivery 04/13/24 03:55 04/13/24 04:00 04/13/24 04:00 Temperature 36.8 C Pulse Rate 98 98 79 Respiratory Rate 18 18 Blood Pressure 122/70 Pulse Oximetry 96 96 Oxygen Delivery Room Air 04/13/24 06:00 04/13/24 07:42 04/13/24 08:00 Temperature 36.9 C Pulse Rate 84 84 92 Respiratory Rate 18 Blood Pressure 134/84 Pulse Oximetry 98 Oxygen Delivery 04/13/24 09:13 04/13/24 10:00 04/13/24 11:09 Temperature 36.9 C Pulse Rate 79 81 Respiratory Rate 18 Blood Pressure 138/87 Pulse Oximetry 97 95 Oxygen Delivery Room Air 04/13/24 12:00 04/13/24 15:21 Temperature 37.6 C Pulse Rate 103 H 92 Respiratory Rate 18 Blood Pressure 130/77 Pulse Oximetry 98 Oxygen Delivery Exam Narrative: Lungs are clear to auscultation bilaterally Cardiovascular regular rate rhythm no murmurs Abdomen soft nontender nondistended bowel sounds are positive Extremities no edema Mild puffiness of the left side of neck with no lymphadenopathy Results Labs 04/13/24 04:50 04/13/24 04:50 Labs: Short CBC 04/13/24 Range/Units 04:50 WBC 8.4 (4.5-10.0) K/mm3 Hgb 12.8 (12.0-15.0) g/dL Hct 39.9 (37.0-47.0) % Plt Count 295 (150-375) k/mm3 [facility] 04/13/24 04:50 Sodium 136 L Potassium 4.0 Chloride 104 Carbon Dioxide 27 BUN 15 Creatinine 0.59 L Glucose 89 Calcium 8.5 Cardiac Enzymes 04/13/24 04/13/24 Range/Units 10:32 15:11 Troponin I < 0.012 < 0.012 (0.000-0.034) ng/mL Liver Function 04/13/24 Range/Units 04:50 Total Bilirubin 0.7 (0.2-1.3) mg/dL AST 21 (14-36) U/L ALT 14 (6-35) U/L Alkaline Phosphatase 58 (38-126) U/L Albumin 3.9 (3.5-5.1) g/dL
[2024-04-14] VITALS (10 sets, daily range): BP systolic 128–133; BP diastolic 77–84; PULSE 69–96; RESP 18; TEMP 36.9–37; O2SAT 96–97
[2024-04-14 04:56] LABS: Hematocrit 38.4 % (37.0-47.0); Hemoglobin 12.7 g/dL (12.0-15.0); Mean Corpuscular HGB Conc 33.1 g/dl (32-36); Mean Corpuscular Hemoglobin 31.2 pg (26-34); Mean Corpuscular Volume 94.3 fl (80-100); Mean Platelet Volume 8.3 fl (7.4-10.4); Platelet Count Result 286 k/mm3 (150-375); Red Blood Count 4.07 M/mm3 (4.2-5.4); Red Cell Distribution Width 12.1 % (11.5-14.5); White Blood Count 8.5 K/mm3 (4.5-10.0)
[2024-04-14 05:06] LABS: Alanine Aminotransferase 14 U/L (6-35); Albumin Level 3.4 g/dL (3.5-5.1); Alkaline Phosphatase 60 U/L (38-126); Anion Gap 4 mmol/L (4-12); Aspartate Amino Transferase 21 U/L (14-36); Bilirubin,Total 0.6 mg/dL (0.2-1.3); Blood Urea Nitrogen 12 mg/dL (7-17); Calcium 8.1 mg/dL (8.4-10.2); Carbon Dioxide 27 mmol/L (22-30); Chloride 105 mmol/L (98-107); Estimated CRCL calculation 73 ml/min; Estimated Glomerular Filt Rate > 60; Glucose 95 mg/dL (65-110); Potassium 3.9 mmol/L (3.4-5.0); Sodium 136 mmol/L (137-145)
[2024-04-14] MEDS: APIXABAN 5 MG TABLET 10 MG PO (09:31)
--- NOTE | 2024-04-14 11:47 | PM.DS ---
DS: Admitting Diagnosis Discharge Date 04/14/2024 Admitting Diagnosis Neck pain DS: Discharge Diagnosis Discharge Diagnosis (1) Internal jugular (IJ) vein thromboembolism, acute: Qualifiers: Laterality: left Qualified Code(s): I82.C12 - Acute embolism and thrombosis of left internal jugular vein Code(s): I82.C19 - Acute embolism and thrombosis of unspecified internal jugular vein Status: Acute Assessment and Plan: - Head/neck US (outpatient, 04/11): Occlusive appearing thrombus in the left internal jugular and subclavian veins. - Neck CTA: Normal CTA head and neck. Percent stenosis per NASCET criteria is 0%. Thrombosis of the left internal jugular vein. Nonvisualization of the left transverse dural sinus with small caliber of the left sigmoid sinus. - Chest CTA: Pulmonary embolism with low clot burden in the lateral basilar segmental pulmonary artery of the right lower lobe. - US of the LUE: thrombosis of the left internal jugular and left subclavian vein. - started on Eliquis BID - monitor coags, add TSH w/reflex - patient educated on stroke symptoms -Ordered Head CTA and Brain MRI which is negative (2) Pulmonary embolism: Qualifiers: Acute cor pulmonale presence: without acute cor pulmonale Chronicity: acute Pulmonary embolism type: unspecified Qualified Code(s): I26.99 - Other pulmonary embolism without acute cor pulmonale Code(s): I26.99 - Other pulmonary embolism without acute cor pulmonale Status: Acute Assessment and Plan: - see above - no current O2 requirement - echo ordered and reviewed DS: Summary Hospital Course Hospital Course: The patient presents here from her PCP via EMS for further evaluation of neck pain and a DVT. The patient originally presented to her PCP today, 04/11, for further evaluation of a lump to the left side of her neck that is sore to the touch. She 1st noted the lump last night. She describes the pain as achy, radiating down the left side of her neck and left arm, constant. Endorses some associated dysphagia, pain with deep inspiration, sore throat, and mild left sided chest pain that also worsens with inspiration. Denies shortness of breath. She denies any recent surgeries, treatment for malignancy, long car rides or flights, or immobility in the last 2-3 months. 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 Denies any use of control or hormones. No hx of smoking/tobacco use. Denies any known family history of genetic disorders or clotting disorders. Initial VS at presentation: 98.2? F, HR 101, R 18, 155/94, and 99% on RA. ED workup showed: No leukocytosis, no anemia, INR 1.0, creatinine 0.7 and GFR >60. Outpatient US of the head/neck showed an occlusive appearing thrombus in the left internal jugular and subclavian veins. Neck CTA showed percent stenosis per NASCET criteria is 0% and thrombosis of the left internal jugular vein. Chest CTA showed a PE with low clot burden in the lateral basilar segmental pulmonary artery of the right lower lobe. Ultrasound of the left upper extremity showed thrombus of the left internal jugular and left subclavian vein, otherwise no further clot burden. 04/12: Evaluated the patient at the bedside. Patient denies any recent surgery, hormone replacement therapy, travel, any family history of coagulation issues and up-to-date on her preventive care measures. Denies any abnormality in the Pap smear, mammogram or Cologuard which she performed 5 years ago. She is scheduled for colonoscopy. Consulted Oncology for coagulation workup. 04/13: Patient complains of pleuritic chest pain. Performed EKG and troponin which is negative. Yesterday around 6.50 PM nurse called about headache and left side weakness. Performed Head CT which was negative. Today during evaluation she complained about left side uncomfortableness which she refers from happening last 2 days. No evidence of neurologic deficits. Ordered CTA head and MRI of Daniel both shows no significant abnormalities. evaluated the patient and ordered CT abdomen/Pelvis to r/o any malignanacy. He cannot order the hypercoagulable workup at this time due to anticoagulation therapy and active blood clot.Advised to follow up with him back in the office in next 3-4 weeks and imaging studies and hypercoagulable workup will be performed as an outpatient and provided office information for follow-up. Patient needs to take Eliquis 10mg PO BID for 7 days ( 04/11-04/17) After that patient needs to take Eliquis 5 mg PO BID until further instructions from . Monitor for bleeding signs and anemia presentation like shortness of breath, dizziness or chest pain. Please follow up with in a week Please follow up with PCP and Cardiology within 2 weeks upon discharge. If any signs of palpitations ,check your heart rate and if HR > 110 can take Metoprolol 12.5 mg PO. Do not take Metoprolol if BP less than 100/60. Time Spent with Patient Time attestation: Total time spent providing and/or coordinating discharge services: Exam Const: General: comfortable and no acute distress Other: , female, nontoxic appearance HENMT: Face/Nose/Sinus: Normal nares present Mouth: Yes moist mucous membranes Other: Tonsils free of erythema, no swelling noted. Eyes: General: appearance normal, both eyes and all related structures Sclera: sclerae normal Pupils: Equal, round and reactive pupils present EOM: EOMs intact bilaterally Resp: Effort & Inspection: normal respiratory effort Auscultation: clear to auscultation bilaterally Cardio: Rate: regular rate Rhythm: regular rhythm Other: S1-S2 present without murmur, rub, ectopy Skin: General skin exam: normal color and no rashes or lesions noted Wounds: no wounds Neuro: Cranial nerves: Yes Equal, round and reactive pupils present Speech: normal speech Motor exam (neuro): 5/5 motor strength present throughout Sensory Exam: normal sensation Other: A&O x4 Extrem: General: normal to inspection Other: Radial pulses intact. DP pulses intact bilaterally. Psych: Mental Status: mental status grossly normal Affect: Anxious affect present Other: Good insight and judgment, pleasant DS: Data Data Completed and Pending Labs on day of discharge: Labs from last 24 hours 04/14/24 04/13/24 04:07 15:11 WBC 8.5 RBC 4.07 L Hgb 12.7 Hct 38.4 MCV 94.3 MCH 31.2 MCHC 33.1 RDW 12.1 Plt Count 286 MPV 8.3 Sodium 136 L Potassium 3.9 Chloride 105 Carbon Dioxide 27 Anion Gap 4 BUN 12 Creatinine 0.65 L Estim Creat Clear Calc 73 Estimated GFR > 60 Glucose 95 Calcium 8.1 L Total Bilirubin 0.6 AST 21 ALT 14 Alkaline Phosphatase 60 Troponin I < 0.012 Total Protein 6.0 L Albumin 3.4 L Imaging Radiologist's impression: ITS Impressions Neck CTA 04/11/24 14:10 IMPRESSION: Normal CTA head and neck. Percent stenosis per NASCET criteria is 0%. Thrombosis of the left internal jugular vein. Nonvisualization of the left transverse dural sinus with small caliber of the left sigmoid sinus. Chest CTA 04/11/24 15:07 IMPRESSION: 1. Pulmonary embolism with low clot burden in the lateral basilar segmental pulmonary artery of the right lower lobe. Venous Doppler Study 04/11/24 17:17 IMPRESSION: Thrombosis of the left internal jugular and left subclavian vein. Head CT 04/12/24 18:56 IMPRESSION: 1. No acute intracranial abnormality. Venous Doppler Study 04/13/24 10:47 IMPRESSION: Negative bilateral lower extremity venous US. No deep vein thrombosis. Brain MRI 04/13/24 13:44 IMPRESSION: 1. Normal brain. Head/Neck CTA 04/13/24 14:06 IMPRESSION: 1. No acute intracranial process. 2. No evident atherosclerotic plaque with 0% stenosis of the right and left carotid bulbs relative to normal distal artery lumen diameter (NASCET criteria). 3. Unremarkable cerebral CT angiogram with no hematoma significant stenosis, aneurysm or thrombosis. 4. Likely persistent thrombosis of the left internal jugular and brachiocephalic veins although assessment is limited on this arterial phase CT angiogram. Abdomen/Pelvis CT 04/14/24 13:35 IMPRESSION: 1. Small left pleural effusion. 2. Bilateral nonobstructing kidney stones. Discharge Plan Discharge Attending physician on discharge: Mau Fitzgerald Consulting providers: Jerry Rivera Discharging Clinician: Mau Fitzgerald Anticipated Discharge Date/Time: 04/14/24 15:10 Patient Disposition: Home, Self-Care Activity: as tolerated Diet: regular Discharge Instructions: Please follow up with in a week Please follow up with PCP and Cardiology within 2 weeks upon discharge. If any signs of palpitations ,check your heart rate and if HR > 110 can take Metoprolol 12.5 mg PO. Do not take Metoprolol if BP less than 100/60. Take Eliquis 10 mg PO BID until 04/18 morning. Take Eliquis 5 mg PO QD from 04/18 evening. Check blood pressure 1 to 2 times a day. Record and bring into your doctor for review. Call your doctor if your blood pressure is greater than 180/110 or less than 90/45. Take precautions to avoid falls. Rise slowly from a lying or sitting position. Pause before standing or walking. Contact your doctor or call 911 and come to the Emergency Room if you have any type of trauma, lightheadedness with standing or other worrisome symptoms. Avoid NSAIDs (ibuprofen, naproxen, Aleve). Tylenol is safe to take. Thank you for using [facility] for your health care needs. Patient Instructions: Apixaban (By mouth), Deep Vein Thrombosis (IP), Deep Vein Thrombosis Prevention (GEN) Patient Language: Serbian Stand Alone Forms: General Discharge Information Follow-up/Referrals: [facility] [place] Cardiology at [place] [Provider Group] Jerry Rivera MD [Physician] - Ashley Smith DO [Primary Care Provider] - Discharge Medications: New Eliquis 5 mg Tablet 10 mg PO Q12HR Qty: 8 0RF Rx Instructions: Take Eliquis 10 mg PO BID until 04/18 Morning Eliquis 5 mg Tablet 5 mg PO Q12HR Qty: 30 0RF metoprolol tartrate 25 mg tablet 12.5 mg PO BID Qty: 30 0RF Continued phentermine 37.5 mg capsule 37.5 mg PO DAILY Rx Instructions: must administer 30 minutes before or 1-2 hours after breakfast sumatriptan succinate 50 mg tablet 50 mg PO .At onset of migraine PRN (Reason: migraine headache) Date of admission: 04/11/24 18:12 Primary Care Provider: Ashley Smith Admitting Provider: Mau Fitzgerald Attending physician on admission: Mau Fitzgerald Condition: Stable
== END 2024-04-14 16:36 | disposition home or self-care (01) ==
LOC: ANHED 16:28 → ANHIMU 17:25
PROVIDERS: Student in an Organized Health Care Education/Training Program; Admitting Provider General Practice; Emergency Provider Family Medicine; PCP Family Medicine; Visit Provider General Practice
DX: I82.C12 Acute embolism and thrombosis of left internal jugular vein (principal); I26.99 Other pulmonary embolism without acute cor pulmonale; G43.909 Migraine, unspecified, not intractable, without status migrainosus; E55.9 Vitamin D deficiency, unspecified; Z79.899 Other long term (current) drug therapy; Z88.0 Allergy status to penicillin; Z87.442 Personal history of urinary calculi
CPT/HCPCS: 36415; 70450; 70496; 70498; 70551; 71275; 74178; 80048; 80053; 84443; 84484; 85025; 85027; 85610; 85730; 93005; 93970; 93971; 96360; 96361; 96372; 96374; 96375; 99285; A9270; C8929; G0378; J1650; J7030; Q9957; Q9967

== ENCOUNTER 2024-05-09 07:37 | Emergency (ER) | payer BC, SELFPAY ==
--- NOTE | ~2024-05-09 | CT_ITS ---
Non-contrast Head CT History: Status post fall COMPARISON: 04/13/2024 Technique: Axial non-contrast imaging of the brain was performed. Dose reduction technique was used on this scan by utilizing automated exposure control and iterative reconstruction technique. The dose -length product (DLP) was 529.67 mGy-cm. Findings: There is no evidence of intracranial hemorrhage, mass lesion, or acute infarct. Brain par enchyma appears normal. The ventricles and subarachnoid spaces are normal in size. The calvarium ap pears normal. The visualized paranasal sinuses and mastoid air cells are clear. Impression: No significant abnormality seen. Reviewed, dictated and finalized at location . SALES SUPERVISOR Impression: No significant abnormality seen.
--- NOTE | ~2024-05-09 | CT_ITS ---
Noncontrast CT scan of the cervical spine Technique: Multiple contiguous axial [address] images of the cervical spine were obtained and rec onstructed in 2D sagittal and coronal planes on the acquisition scanner. Dose reduction technique was used on this scan by utilizing automated exposure control, adjustment of the mA and/or kV according to patient size. The dose-length product (DLP) was 184.84 mGy-cm. Clinical History: Pain Findings: No fractures or dislocations. Unremarkable visualized bony structures. There is mild dege nerative disc narrowing at C5-C6. No prevertebral soft tissue swelling. Impression: No fracture or subluxation of the cervical spine. Reviewed, dictated and finalized at location . STANT DESIGNER Impression: No fracture or subluxation of the cervical spine.
--- OUTSIDE RECORDS SUMMARY | 2024-05-09 07:40 | XMS_ITS | Patient Health Summary ---
Author Organization [facility] Address [address] [place] [address] Care Team Providers Care Group Work Program Director Name Role Phone Michael Murali Cooper DO Primary Care Provider [phone] Ayse Payne MD Unavailable [phone] [facility],non-owned Affiliates and Associated Physician Practices is amultiple site organization consisting of ambulatory clinics and hospital sitesin [place], [place], [place] and [place]. This disclosure is being madepursuant to the Care Everywhere program and may not contain all information available regarding this patient. Last updated 17.[facility] Allergies * Penicillins(Urticaria) Medications * Be aware that medications may not be up to date on this document. Alwaysverify current medications with the patient. * SUMAtriptan (IMITREX) 100 MG tablet(Started 04/04/2015) Take 1 Tab by mouth once as needed ( may repeat in 2 hours) 2 refills left * predniSONE (DELTASONE) 10 MG tablet(Started 10/29/2016) 5 tabs po x2 days, 4 tabs po x2 days, 3 tabs po x2 days, 2 tabs po x2 days, 1 tab po x2 days Active Problems Problem Noted Date Diagnosed Date Migraines 04/18/2012 Social History Tobacco Use Types Packs/Day Years Used Date Smoking Tobacco: Never Smokeless Tobacco: Never Alcohol Use Standard Drinks/Week Comments No 0 (1 standard drink = 0.6 oz pur e alcohol) Sex and Gender Information Value Date Recorded Sex Assigned at Not on file Gender Identity Not on file Sexual Orientation Not on file Last Filed Vital Signs Vital Sign Reading Time Taken Comments Blood Pressure 106/78 10/29/2016 11:43 AM CDT Pulse 93 10/29/2016 11:43 AM CDT Temperature 36.3 C (97.4 F) 10/29/2016 11:43 AM CDT Respiratory Rate 16 10/29/2016 11:43 AM CDT Oxygen Saturation 98% 10/29/2016 11:43 AM CDT Inhaled Oxygen Concentration - - Weight 63.5 kg (140 lb) 10/29/2016 11:43 AM CDT Height 165.1 cm (5' 5 ) 10/29/2016 11:43 AM CDT Body Mass Index 23.3 10/29/2016 11:43 AM CDT Procedures * STREP A SCREEN - POINT OF CARE (AMB) STL(Performed 01/22/2016) Performed for Acute tonsillitis, unspecified etiology * TSH REFLEX FREE T4(Performed 11/20/2014) Performed for Routine general medical examination at a health care facility * LIPID PROFILE(Performed 11/20/2014) Performed for Routine general medical examination at a health care facility * HEMOGLOBIN A1C(Performed 11/20/2014) Performed for Routine general medical examination at a health care facility * COMPREHENSIVE METABOLIC PANEL(Performed 11/20/2014) Performed for Routine general medical examination at a health care facility * CBC W AUTO DIFFERENTIAL(Performed 11/20/2014) Performed for Routine general medical examination at a health care facility * TSH(Performed 03/30/2013) Performed for Preventative health care * COMPREHENSIVE METABOLIC PANEL(Performed 03/30/2013) Performed for Preventative health care * CBC W AUTO DIFFERENTIAL(Performed 03/30/2013) Performed for Preventative health care * LIPID PROFILE(Performed 03/30/2013) Performed for Preventative health care * HEMOGLOBIN A1C(Performed 03/30/2013) Performed for Preventative health care * US ABDOMEN LIMITED(Performed 09/20/2012) Performed for Abdominal pain, RUQ (right upper quadrant) Results * STREP A SCREEN (01/22/2016) Strep A Rapid POCT Negative Negative Strep A Internal Control Present Lot # [id number] Expiration Date [id number] Throat ENTIRE THROAT (SURFACE REGION OF NECK) / Unknown 01/22/2016 Aurora Lopes SUPERVISOR CORRESPONDENCE SECTION-STONE PROCESSING MACHINE OPERATOR LAB - POINT OF CARE ORDERABLES * TSH REFLEX FREE T4 (11/20/2014 10:19 AM CDT) TSH 1.630 0.450 - 4.500 uIU/mL [facility] ACCOUNT BILL Blood specimen (specimen) BLOOD SPECIMEN / Unknown 11/20/2014 10:19 AM CDT 11/20/2014 12:19 PM CDT Narrative Resulting Agency Comment [address] [phone] Orville Cullen oohilove, DO LAB - CHEMISTRY ORD ERABLES Performing Organization Address City/[facility] de Phone Number [facility] ACCOUNT BILL * HEMOGLOBIN A1C (11/20/2014 10:19 AM CDT) Only the most recent of2 resultswithin the time period is included. Hemoglobin A1c 5.6 4.8 - 5.6 % [facility] ACCOUNT BILL Comment: . Increased risk for diabetes: 5.7 - 6.4 Diabetes: >6.4 Glycemic control for adults with diabetes: <7.0 Whole blood specimen (specimen) BLOOD SPECIMEN WITH EDTA / Unknown 11/20/2014 10:19 AM CDT 11/20/2014 12:19 PM CDT Narrative Resulting Agency Comment [place] [id number] [facility] [phone] Orville Cullen oohilove, DO LAB - CHEMISTRY ORD ERABLES Performing Organization Address City/[facility]/ZIP Co de Phone Number [facility] ACCOUNT BILL * CBC W AUTO DIFFERENTIAL (11/20/2014 10:19 AM CDT) Only the most recent of2 resultswithin the time period is included. WBC 7.1 3.4 - 10.8 x10E3/uL [facility] ACCOUNT BILL RBC 4.28 3.77 - 5.28 x10E6/uL [facility] ACCOUNT BILL Hemoglobin 13.3 11.1 - 15.9 g/dL [facility] ACCOUNT BILL Hematocrit 40.0 34.0 - 46.6 % [facility] ACCOUNT BILL MCV 94 79 - 97 fL [facility] ACCOUNT BILL MCH 31.1 26.6 - 33.0 pg [facility] ACCOUNT BILL MCHC 33.3 31.5 - 35.7 g/dL [facility] ACCOUNT BILL RDW 13.0 12.3 - 15.4 % [facility] ACCOUNT BILL Platelet Count 300 150 - 379 x10E3/uL [facility] ACCOUNT BILL Granulocytes % 60 % [facility] ACCOUNT BILL Lymphocytes % 33 % [facility] ACCOUNT BILL Monocytes % 5 % [facility] ACCOUNT BILL Eosinophils % 1 % [facility] ACCOUNT BILL Basophils % 1 % [facility] ACCOUNT BILL Immature Cells NOT NEEDED [facility] ACCOUNT BILL Comment:Ancillary determined the test is not needed Granulocytes Absolute 4.2 1.4 - 7.0 x10E3/uL [facility] ACCOUNT BILL Lymphocytes Absolute 2.4 0.7 - 3.1 x10E3/uL [facility] ACCOUNT BILL Monocytes Absolute 0.4 0.1 - 0.9 x10E3/uL [facility] ACCOUNT BILL Eosinophils Absolute 0.1 0.0 - 0.4 x10E3/uL [facility] ACCOUNT BILL Basophils Absolute 0.0 0.0 - 0.2 x10E3/uL [facility] ACCOUNT BILL Immature Granulocytes 0 % [facility] ACCOUNT BILL Immature Granulocytes Absolute 0.0 0.0 - 0.1 x10E3/uL [facility] ACCOUNT BILL nRBC NOT NEEDED [facility] ACCOUNT BILL Comment:Ancillary determined the test is not needed Comment Hematology NOT NEEDED [facility] ACCOUNT BILL Comment:Ancillary determined the test is not needed Blood specimen (specimen) BLOOD SPECIMEN / Unknown 11/20/2014 10:19 AM CDT 11/20/2014 12:19 PM CDT Narrative Resulting Agency Comment [facility] [address] [phone] Orville Tavares III, DO LAB - HEMATOLOGY OR DERABLES [facility] ACCOUNT BILL * COMPREHENSIVE METABOLIC PANEL (11/20/2014 10:19 AM CDT) Only the most recent of2 resultswithin the time period is included. Glucose 87 65 - 99 mg/dL [facility] ACCOUNT BILL BUN 19 6 - 24 mg/dL [facility] ACCOUNT BILL Creatinine 0.85 0.57 - 1.00 mg/dL [facility] ACCOUNT BILL BUN/Creatinine Ratio 22 9 - 23 [facility] ACCOUNT BILL Sodium 141 134 - 144 mmol/L [facility] ACCOUNT BILL Potassium 4.3 3.5 - 5.2 mmol/L [facility] ACCOUNT BILL Chloride 100 97 - 108 mmol/L [facility] ACCOUNT BILL CO2 26 18 - 29 mmol/L [facility] ACCOUNT BILL Calcium 9.3 8.7 - 10.2 mg/dL [facility] ACCOUNT BILL Protein Total 6.4 6.0 - 8.5 g/dL [facility] ACCOUNT BILL Albumin 4.2 3.5 - 5.5 g/dL [facility] ACCOUNT BILL Globulin Total 2.2 1.5 - 4.5 g/dL [facility] ACCOUNT BILL Albumin/Globulin Ratio 1.9 1.1 - 2.5 [facility] ACCOUNT BILL Bilirubin Total 0.3 0.0 - 1.2 mg/dL [facility] ACCOUNT BILL Alkaline Phosphatase 48 39 - 117 IU/L [facility] ACCOUNT BILL AST 24 0 - 40 IU/L [facility] ACCOUNT BILL ALT 15 0 - 32 IU/L [facility] ACCOUNT BILL Blood specimen (specimen) BLOOD SPECIMEN / Unknown 11/20/2014 10:19 AM CDT 11/20/2014 12:19 PM CDT Narrative Resulting Agency Comment [facility] [address] [phone] Orville Tavares III, DO LAB - CHEMISTRY ORD ERABLES [facility] ACCOUNT BILL * LIPID PROFILE (11/20/2014 10:19 AM CDT) Only the most recent of2 resultswithin the time period is included. Cholesterol 157 100 - 199 mg/dL [facility] ACCOUNT BILL Triglycerides 67 0 - 149 mg/dL [facility] ACCOUNT BILL HDL Cholesterol 87 >39 mg/dL [facility] ACCOUNT BILL Comment: According to ATP-III Guidelines, HDL-C >59 mg/dL is considered a negative risk factor for CHD. VLDL Calculated 13 5 - 40 mg/dL [facility] ACCOUNT BILL LDL Calculated 57 0 - 99 mg/dL [facility] ACCOUNT BILL Comment NOT NEEDED [facility] ACCOUNT BILL Comment:Ancillary determined the test is not needed Blood specimen (specimen) BLOOD SPECIMEN / Unknown 11/20/2014 10:19 AM CDT 11/20/2014 12:19 PM CDT Narrative Resulting Agency Comment [facility] [place] [address] [facility] [phone] Orville Cullen Chaitanya III, DO LAB - CHEMISTRY ORD ERABLES [facility] ACCOUNT BILL * TSH (03/30/2013 10:42 AM ENGINEERING PRODUCTION LIAISON) TSH 1.980 0.450 - 4.500 uIU/mL [facility] ACCOUNT BILL Blood specimen (specimen) BLOOD SPECIMEN / Unknown 03/30/2013 10:42 AM ENGINEERING PRODUCTION LIAISON 03/30/2013 12:45 PM ENGINEERING PRODUCTION LIAISON Narrative Resulting Agency Comment [facility] [place] [address] [facility] [phone] Murali Rodriguez DO LAB - CHEMISTRY ORDE TERRY Performing Organization Address City/[facility]/ZIP Co de Phone Number [facility] ACCOUNT BILL * US ABDOMEN LIMITED (09/20/2012 10:13 AM CDT) Anatomical Region Laterality Modality Abdomen Ultrasound 09/20/2012 10:3 2 AM CDT Impressions 09/20/2012 10:32 AM CDT Unremarkable abdominal ultrasound. Narrative 09/20/2012 10:32 AM CDT Ultrasound Abdomen Limited Indication: Nausea Technique: Zamora scale and color images of the abdomen Findings: The liver, gallbladder, pancreas, and right kidney are within normal limits. Common bile duct is within normal limits. Portal venous flow is hepatopedal and the hepatic veins are patent. Procedure Note Rodolfo Rivera MD - 09/20/2012 Ultrasound Abdomen Limited Indication: Nausea Technique: Zamora scale and color images of the abdomen Findings: The liver, gallbladder, pancreas, and right kidney are within normal limits. Common bile duct is within normal limits. Portal venous flow is hepatopedal and the hepatic veins are patent. IMPRESSION Unremarkable abdominal ultrasound. Rodríguez Tate DO ORDERABLES Care Teams Group Work Program Director Relationship Specialty Start Date End Date Murali Rodriguez DO PCP - General Family Medicine 09/05/13 Ayse Payne MD [address], [address] Obstetrics and Gynecology 11/20/14
--- OUTSIDE RECORDS SUMMARY | 2024-05-09 07:40 | XMS_ITS ---
Author Organization [facility] Address [address] [address] [place] [address] Care Team Providers Care Wood Tile Installation Helper Name Role Phone zzzzMigration, zzzzProvider Unavailable Unav ailable REASON FOR VISIT EMR-Sotero Encounters Encounter Location Date Provider Diagnosis [facility] [address] [address] [place] [address] 01/15/2023 zzzzProvider zzzzMigration Plan Of Treatment Medication Medication Name Sig Start Date Stop Date Notes Effexor XR 75 MG 1 Every Day for depression Oral 06/28/2007 Flonase Allergy Relief 50 MCG/ACT 2 sprays each nostril q day Nasal 05/07/2008 Inderal LA 60 mg take 1 capsule (60 m g) by oral route 1 times per day for 90 days Oral 2 for 90 12/21/2010 12/16/2011 Zithromax Z-Dexter 250 MG take 2 tablets (5 00 mg) by oral route once daily for 1 day then 1 tablet (250 mg) by oral route once daily for 4 days Oral 1 for 5 08/17/2011 08/22/2011 Lexapro 10 MG 1 Every Day depressi on Oral 04/15/2006 ALPRAZolam 0.25 MG 1 Every Day At Bedti me Oral 02/24/2007 Anusol-HC 2.5 % one q6hrs External 07/21/2009 Maxalt 10 MG take 1 tablet (10 mg ) by oral route once, may repeat at 2 hour intervals; do not exceed 30 mg in 24 hours for 30 days Oral 0 for 30 12/21/2010 12/16/2011 Proctofoam HC use tid 07/21/2009 *Karan gray [facility] from [facility] for eRX* Progress Notes * Luci ELLIS LDOB:[birth year] (58 yo F)Acc No.[id number]:01/15/2023 Patient: Luci WOO :1965 A ge:57 Y S ex:Female Address:[address] [place] [address] [place], [address] * Refills Stop ALPRAZolam Tablet Disintegrating, 0.25 MG, Oral, 30.00, 1 Every Day At Bedtime Stop Effexor XR Capsule Extended Release 24 Hour, 75 MG, Oral, 30.00, 1 Every Day for depression Stop Inderal LA Capsule Extended Release 24 Hour, 60 mg, Oral, 180, take 1 capsule (60 mg) by oral route 1 times per day for 90 days, 2, 90 Stop Zithromax Z-Dexetr Tablet, 250 MG, Oral, 1.00, as directed Stop Anusol-HC Cream, 2.5 %, External, 30.00, one q6hrs Stop Lexapro Tablet, 10 MG, Oral, 30.00, 1 Every Day depression Stop Maxalt Tablet, 10 MG, Oral, 10, take 1 tablet (10 mg) by oral route once, may repeat at 2 hour intervals; do not exceed 30 mg in 24 hours for 30 days, 0, 30 Stop Proctofoam HC, 1.00, use tid Stop Flonase Allergy Relief Suspension, 50 MCG/ACT, Nasal, 1.00, 2 sprays each nostril q day Stop Zithromax Z-Dexter Tablet, 250 MG, Oral, 6, take 2 tablets (500 mg) by oral route once daily for 1 day then 1 tablet (250 mg) by oral route once daily for 4 days, 1, 5 Subjective: * Chief Complaints: * E MR-Sotero * Medical History: * Surgical History: * Hospitalization/Major Diagno stic Procedure: * Medications: Objective: * Vitals: * Physical Examination: Assessment: Plan: * Treatment: * Procedure Codes: * * Date:
--- OUTSIDE RECORDS SUMMARY | 2024-05-09 07:40 | XMS_ITS ---
Author Organization [facility] Address [address] [address] [address] Care Team Providers Care Medical Territory Manager Name Role Phone zzzzMigration, zzzzProvider Unavailable Unav ailable Allergies Allergen (clinical drug ingredient) Drug/Non Drug Allergy documented on EMR Reaction Allergy Type Onset Date Status Substance with penicillin structure and antibacterial mechanism of action (substance) Penicillins Unknown Drug Allergy 05/31/2005 Active REASON FOR VISIT [facility] Medic[place] Medication SIG (Take, Route, Fr equency, Duration) Notes Start Date End Date Status Imitrex 100 MG take 1 tablet by ora l route at onset of headache, 2nd pill to be taken 2hours later if needed Oral 1 03/26/2011 Ac tive Encounters Encounter Location Date Provider Diagnosis [facility] [address] [facility] [address] [address] 01/16/2023 zzzzProvider zzzzMigration Plan Of Treatment No Information Progress Notes * Luci ELLIS LDOB:[birth year] (58 yo F)Acc No.[id number]:01/16/2023 Patient: Luci WOO :1965 A ge:57 Y S ex:Female Address:[facility] [address] , [place], [address] Subjective: * Chief Complaints: * E MR-Sotero * Medical History: * Surgical History: * Hospitalization/Major Diagno stic Procedure: * Family History: F ather: Father Notes: CAD, HYPERTENSION, DIABETES . M other: Mother Notes: MVP . B rother: Sibling-Brother Notes: 1 BROTHER . S ister: Sibling-Sister Notes: 2 SISTERS . * Social History: M igrated Social History: M igrated Social History: :: 3 Children , :: lives with Spouse , Exercise :: weights , Marital Status :: , Occupation :: [employer] Employee :: note : [employer] , Substance Use :: Alcohol - No significant history of usage , Substance Use :: Tobacco :: Never. * Medications: T akingImitrex 100 MG Tablet take 1 tablet by oral route at onset of headache, 2nd pill to be taken 2hours later if needed Oral 1 Taking Imitrex 100 MG Tablet take 1 tablet by oral route at onset of headache, 2nd pill to be taken 2hours later if needed Oral 1 * Allergies: P enicillins: Allergy - Onset Date 05/31/2005 Objective: * Vitals: * Physical Examination: Assessment: Plan: * Treatment: * Procedure Codes: * * Date:
--- OUTSIDE RECORDS SUMMARY | 2024-05-09 07:40 | XMS_ITS | Clinical Summary ---
Author Organization [facility] [employer] Address [address] [place] [address] Care Team Providers Care Event Specialist Name Role Phone Michael Murali Cooper DO Primary Care Provider [phone] Ayse Payne MD Unavailable [phone] Source Comments [facility],non-owned Affiliates and Associated Physician Practices is amultiple site organization consisting of ambulatory clinics and hospital sitesin [place], [place], [place] and [place]. This disclosure is being madepursuant to the Care Everywhere program and may not contain all information available regarding this patient. Last updated 17.[facility] [employer] Allergies Active Allergy Reactions Criticality Noted Date Comments Penicillins Urticaria 04/18/2012 Medications * Be aware that medications may not be up to date on this document. Alwaysverify current medications with the patient. Medication Sig Dispensed Refills Start Date End Date Status SUMAtriptan (IMITREX) 100 MG tablet Take 1 Tab by mouth once as needed ( may repeat in 2 hours) 4 Tab 2 04/04/2015 Active Additional Information Patient not taking.Reported on 01/22/2016 predniSONE (DELTASONE) 10 MG tablet 5 tabs po x2 days, 4 tabs po x2 days, 3 tabs po x2 days, 2 tabs po x2 days, 1 tab po x2 days 30 Tab 10/29/2016 Active Active Problems Problem Noted Date Diagnosed Date Migraines 04/18/2012 Family History Medical History Relation Name Comments Diabetes Father Hypertension Father Diabetes Sister Relation Name Status Comments Father Sister Social History Tobacco Use Types Packs/Day Years [...] Mass Index 23.3 10/29/2016 11:43 AM CDT Plan of Treatment Health Maintenance Due Date Last Done Comments COLOGUARD (AGES 45-75) - COL ON CA SCREENING 1965 COLON MONITORING 1965 COLONOSCOPY - COLON CA SCREENING 1967 CT COLONOGRAPHY - COLON CA SCREENING 1965 Colorectal Cancer Screening 1965 FIT - COLON CA SCREENING 1967 FLEX SIG - COLON CA SCREENING 1967 HIV SCREENING 12/10/1982 HEPATITIS C SCREENING 12/06/1985 DTAP/TDAP/TD VACCINES (1 - Tdap) 12/10/1986 HEPATITIS B VACCINE (1 of 3 - 19+ 3-dose series) 12/10/1986 MAMMOGRAM 03/12/2015 03/12/2013, 02/26/2012 PAP SMEAR 02/26/2016 02/25/2013, 01/27/2012 PNEUMOCOCCAL VACCINE 50+ (1 of 1 - PCV) 12/10/2017 ZOSTER VACCINE (1 of 2) 12/10/2017 LIPID TESTING 11/21/2019 11/20/2014, 03/30/2013, 12/27/2011 COVID-19 VACCINE ( - 2023-2 5 season) 2023 INFLUENZA VACCINE (#1) 2023 DEPRESSION SCREENING 03/28/2024 HIB VACCINE Aged Out No longer eligi ble based on patient's age to complete this topic HPV VACCINE Aged Out No longer eligi ble based on patient's age to complete this topic MENINGOCOCCAL (Group B) VACCINE Aged Out No longer eligible b ased on patient's age to complete this topic MENINGOCOCCAL VACCINE Aged Out No andreina remington eligible based on patient's age to complete this topic PNEUMOCOCCAL VACCINE Aged Out No long er eligible based on patient's age to complete this topic Procedures Procedure Name Priority Date/Time Associated Diagnosis Comments LIPID PROFILE Routine 11/20/2014 10:19 AM CDT Routine general medical examination at a health care facility from Last 3 Months or Most Recently Relevant to Health Maintenance Results * LIPID PROFILE (11/20/2014 10:19 AM CDT) Cholesterol 157 100 - 199 mg/dL [facility] [...] PM CDT Narrative Resulting Agency Comment [facility] [address] [phone] Orville Tavares III, DO LAB - CHEMISTRY ORD ERABLES [facility] ACCOUNT BILL from Last 3 Months or Most Recently Relevant to Health Maintenance Care Teams Event Specialist Relationship Specialty Start Date End Date Murali Rodriguez DO PCP - General Family Medicine 09/05/13 Ayse Payne MD [address], [address] Obstetrics and Gynecology 11/20/14
--- OUTSIDE RECORDS SUMMARY | 2024-05-09 07:40 | XMS_ITS | Referral Summary ---
Author Organization [facility] [employer] Address [address] [place] [address] Care Team Providers Care Dinkey Operator Slag Name Role Phone RodriguezMurali DO Primary Care Provider [phone] Ayse Payne MD Unavailable [phone] Source Comments [facility],non-owned Affiliates and Associated Physician Practices is amultiple site organization consisting of ambulatory clinics and hospital sitesin [place], [place], [place] and [place]. This disclosure is being madepursuant to the Care Everywhere program and may not contain all information available regarding this patient. Last updated 17.[facility] [employer] Allergies Active Allergy Reactions Criticality Noted Date [...] 10/29/2016 11:43 AM CDT Plan of Treatment Not on file Procedures Procedure Name Priority Date/Time Associated Diagnosis [...] PM CDT Narrative Resulting Agency Comment [facility] [place] [id number] [facility] [phone] Orville Tavares III, DO LAB - CHEMISTRY ORD ERABLES [facility] ACCOUNT BILL from Last 3 Months or Most Recently Relevant to Health Maintenance Care Teams Dinkey Operator Slag Relationship Specialty Start Date End Date Murali Rodriguez DO PCP - General Family Medicine 09/05/13 Ayse Payne MD [address], [address] Obstetrics and Gynecology 11/20/14
--- OUTSIDE RECORDS SUMMARY | 2024-05-09 07:40 | XMS_ITS | Patient Health Record ---
Author Organization [facility] Address [address] [facility] [address] [place] [address] Support Name Relationship Address Phone Drissapoorva Lcui Guarantor Unknown Reason For Referral No Information Medications Medication SIG (Take, Route, Fr equency, Duration) Notes Start Date End Date Status Imitrex 100 MG take 1 tablet by ora l route at onset of headache, 2nd pill to be taken 2hours later if needed Oral 1 03/26/2011 Ac tive Immunizations Vaccine Route Administration Date Status Comme nts Tdap Unknown 07/19/2005 Administered migrated Leg Patid= [id number] Date=07/19/2005 Vac= Tdap Tdap IM Intramuscular 03/16/2011 Administered Plan Of Treatment No Information Insurance Providers Payer Name Payer Address Payer Phone Subscriber Number Group Number Insured Name Patient Relationship to Insured Coverage Start Date Coverage End Date [facility] [employer] [address] [address] [place] [address] [phone] [id number] Luci Ellis Self - patient is the insured 1
--- OUTSIDE RECORDS SUMMARY | 2024-05-09 07:41 | XMS_ITS | Referral Summary ---
Author Organization [facility] Address [address] [place] [address] Phone Care Team Providers Care Curing Pickling Packer Name Role Phone Clinic, Pcp Unavailable Unavailable Ashley Smith DO Primary Care Provider [phone]- [phone] Encounters Date Type Department Care Team Description 04/25/2024 Telephone [facility] [address] [facility] [address] [address] Ayse Payne MD provider call request from Last 3 Months Allergies Active Allergy Reactions Criticality Noted Date Comments Penicillins Hives,Rash,Urticaria Medium 04/18/2012 Medications calcium carbonate/vitam in D3 (CALCIUM 500 + D, D3, ORAL) Take by mouth. Activ e buPROPion (WELLBUTRIN) 100 mg tablet Take 1 tablet (100 mg total) by mouth 2 (two) times a day 60 tablet 3 4 05/18/19 25 Active phentermine (ADIPEX-P) 37.5 mg tablet Take 1 tablet (37.5 mg total) by mouth daily before breakfast 30 tablet 2 4 Active Active Problems Problem Noted Date Diagnosed Date Encounter for weight loss counseling 10/10/2023 Assessment & Plan (01/19/2024 1:35 PM CDT): Reviewed importance of adequate protein intake. Reviewed recommendation/goal of >/= 150 minutes/week moderate intensity aerobic exercise. Discussed okay to not track food/calories but that if they start to struggle or are not losing weight, this is a useful tool to help refocus. Discussed limiting calorie intake with restaurant options including planning meals prior to ordering, eating only half the meal, and substituting certain items. Assessment & Plan (10/10/2023 3:47 PM CDT): Continue low carb, low glycemic diet. Alise is currently on phentermine. Continue medication at current dose. Add bupropion to current regimen. Start taking Bupropion SR 100mg once a day (with dinner) for 1 week ---if you tolerate it well, increase to twice daily ( with breakfast and dinner) You should try to take this medication with a meal. This medication is one of the components of Contrave( brand name antiobesity medication) and helps to increase dopamine activity in the brain which appears to decrease appetite and increase energy expenditure by working through POMC neurons in your brain. This medication is commonly used to control depression, anxiety and possibly to help stop smoking. Possible side effects are headache, dry mouth, nausea, dizziness and/or insomnia. Contact the office if you develop any unusual symptoms while on this medication. In some patients, this medication can elevated blood pressure, please check your blood pressure and pulse rate regularly and report to the office if they are abnormal. If you have history of seizures or eating disorder, you should avoid taking this medication. Reviewed importance of adequate protein intake. Reviewed recommendation/goal of >/= 150 minutes/week moderate intensity aerobic exercise. Discussed limiting calorie intake with restaurant options including planning meals prior to ordering, eating only half the meal, and substituting certain items. increase physical activity, water, and protein (eat protein first, veggies, fruits, starchy veggies, legumes, grains) Sleep apnea 10/03/2023 Fatty liver 10/03/2023 Metabolic syndrome 10/03/2023 Assessment & Plan (01/19/2024 1:26 PM CDT): Obesity is one of the leading risk factor for mortality. Metabolically healthy obese individuals had 49% increased risk of coronary artery disease, 7% increased risk of cerebrovascular disease and 96% increased risk of heart failure. In other words, even individuals who are normal weight can have metabolic abnormalities and similar risk for cardiac vascular disease events. Thus, the complications that may result from metabolic syndrome and frequently serious and chronic. They include atherosclerosis, diabetes, myocardial infarction, renal disease, cardiovascular events such as stroke, nonalcoholic fatty liver disease, peripheral artery disease, and cardiovascular diseases. His diabetes develops; there is an increased risk of retinopathy, neuropathy, renal disease and amputation of labs. Therefore, treating obesity, obesity related diseases is exceedingly crucial. Improving the hypertrophic adipocytes function and decrease insulin resistance is the main goal of the treatment. Furthermore, an emerging concept that the anti-obesity agents must not only reduce the hypertrophic adipocytes but must also correct the fat dysfunction, adiposopathy. Weight loss is associated with increases in mean suppression of glucose production from baseline, is associated with increase insulin stimulated in glucose disposal from fat-free mass and weight loss increased beta cell function. In other words, weight loss change in hepatic insulin sensitivity and muscle insulin sensitivity, beta cell function and a 24-hour plasma glucose and insulin profiles. Our goal is and decreasing the weight between 16 and 20% which will significantly decrease the risk of morbidity and mortality. Assessment & Plan (10/10/2023 3:47 PM CDT): Continue low carb, low glycemic diet. Alise is currently on phentermine. Continue medication at current dose. Add bupropion to current regimen. Start taking Bupropion SR 100mg once a day (with dinner) for 1 week ---if you tolerate it well, increase to twice daily ( with breakfast and dinner) You should try to take this medication with a meal. This medication is one of the components of Contrave( brand name antiobesity medication) and helps to increase dopamine activity in the brain which appears to decrease appetite and increase energy expenditure by working through POMC neurons in your brain. This medication is commonly used to control depression, anxiety and possibly to help stop smoking. Possible side effects are headache, dry mouth, nausea, dizziness and/or insomnia. Contact the office if you develop any unusual symptoms while on this medication. In some patients, this medication can elevated blood pressure, please check your blood pressure and pulse rate regularly and report to the office if they are abnormal. If you have history of seizures or eating disorder, you should avoid taking this medication. Reviewed importance of adequate protein intake. Reviewed recommendation/goal of >/= 150 minutes/week moderate intensity aerobic exercise. Discussed limiting calorie intake with restaurant options including planning meals prior to ordering, eating only half the meal, and substituting certain items. increase physical activity, water, and protein (eat protein first, veggies, fruits, starchy veggies, legumes, grains) Overweight (BMI 25.0-29.9) 10/03/2023 Assessment & Plan (01/19/2024 1:35 PM CDT): Continue low carb, low glycemic diet. Alise is currently on phentermine and Wellbutrin Continue medication at current dose. May consider increasing Wellbutrin in the future if no continued improvement and occasional dizziness subsides increase physical activity, water, and protein (eat protein first, veggies, fruits, starchy veggies, legumes, grains) Increase water to >80-90 fl oz Take BP if you become dizzy Take it slow when moving from position to position Reviewed importance of adequate protein intake. Reviewed recommendation/goal of >/= 150 minutes/week moderate intensity aerobic exercise. Assessment & Plan (10/10/2023 3:47 PM CDT): Baseline BMI 26.6 Continue low carb, low glycemic diet. Alise is currently on phentermine. Continue medication at current dose. Add bupropion to current regimen. Start taking Bupropion SR 100mg once a day (with dinner) for 1 week ---if you tolerate it well, increase to twice daily ( with breakfast and dinner) You should try to take this medication with a meal. This medication is one of the components of Contrave( brand name antiobesity medication) and helps to increase dopamine activity in the brain which appears to decrease appetite and increase energy expenditure by working through POMC neurons in your brain. This medication is commonly used to control depression, anxiety and possibly to help stop smoking. Possible side effects are headache, dry mouth, nausea, dizziness and/or insomnia. Contact the office if you develop any unusual symptoms while on this medication. In some patients, this medication can elevated blood pressure, please check your blood pressure and pulse rate regularly and report to the office if they are abnormal. If you have history of seizures or eating disorder, you should avoid taking this medication. Reviewed importance of adequate protein intake. Reviewed recommendation/goal of >/= 150 minutes/week moderate intensity aerobic exercise. Discussed limiting calorie intake with restaurant options including planning meals prior to ordering, eating only half the meal, and substituting certain items. increase physical activity, water, and protein (eat protein first, veggies, fruits, starchy veggies, legumes, grains) Abnormal liver function tests 05/17/2019 Encounter for gynecological examination without abnormal finding 03/29/2017 Assessment & Plan (11/01/2023 8:29 PM CDT): Pelvic exam and breast exam done. Schedule mammogram. Planning to schedule colonoscopy. Return in one year. Assessment & Plan (10/21/2022 8:57 PM CDT): Pelvic exam and breast exam done. Schedule mammogram and f/u right breast ultrasound. Schedule colonoscopy. Return in one year. Assessment & Plan (10/21/2021 10:15 PM CDT): Pap smear and breast exam done. Schedule mammogram. Cologuard due in February. Return in one year. Assessment & Plan (08/26/2020 9:44 PM CDT): Pap smear and breast exam done. Schedule mammogram. Cologuard or Colonoscopy due in February. Return in one year. Assessment & Plan (05/17/2019 3:15 PM STACKER DRIVER): Pelvic exam and breast exam done. Mammogram has been scheduled. Return in one year. Assessment & Plan (05/08/2018 11:11 PM STACKER DRIVER): Pap smear and breast exam done. GI list Return in one year. Assessment & Plan (03/29/2017 9:25 AM STACKER DRIVER): Pap smear and breast exam done. Schedule mammogram. Calcium and vitamin D discussed with patient. Rtn in one year. Menopausal syndrome (hot flashes) 03/29/2017 Assessment & Plan (08/26/2020 9:45 PM CDT): Discussed pros/cons of HRT. Discussed options. Will start Vivelle Dot 0.05 twice weekly and prometrium 100 qhs. Assessment & Plan (05/08/2018 11:12 PM STACKER DRIVER): Discussed options for treatment of hot flashes and night sweats. Assessment & Plan (03/29/2017 9:26 AM STACKER DRIVER): Discussed options for treatment including HT, effexor, paxil, clonidine, otc remedies and treatment with Ambien. Alise will try Remifemin first. Migraines 04/18/2012 Immunizations Name Administration Dates Next Due Tdap 08/07/2021 Social History Tobacco Use Types Packs/Day Years Used Date Smoking Tobacco: Never Smokeless Tobacco: Never Tobacco Cessation:Counseling Given: Not Answered Alcohol Use Standard Drinks/Week Comments Yes 0 (1 standard drink = 0.6 oz pur e alcohol) Comments No Sex and Gender Information Value Date Recorded Sex Assigned at Not on file Legal Sex Female 1:22 AM STACKER DRIVER Gender Identity Not on file Sexual Orientation Not on file Last Filed Vital Signs Vital Sign Reading Time Taken Comments Blood Pressure 122/80 11/01/2023 3:50 PM CDT Pulse 83 10/11/2019 8:43 AM CDT Temperature 36.8 C (98.2 F) 10/11/2019 8:43 AM CDT Respiratory Rate - - Oxygen Saturation - - Inhaled Oxygen Concentration - - Weight 70.3 kg (155 lb) 11/01/2023 3:50 PM CDT Height 165.1 cm (5' 5 ) 11/01/2023 3:50 PM CDT Body Mass Index 25.79 11/01/2023 3:50 PM CDT Plan of Treatment Not on file Procedures Procedure Name Priority Date/Time Associated Diagnosis Comments SCREENING MAMMOGRAM BILATERAL W DAMON W IMPLANTS Schedule Routine, Read Routine (OP Routine) 01/04/2024 4:01 PM CDT Encounter for screening mammogram for malignant neoplasm of breast PAP AND HIGH RISK HPV, REFLEX TO GENOTYPING Routine 10/20/2021 4:09 PM CDT Screening for cervical cancer from Last 3 Months or Most Recently Relevant to Health Maintenance Results * Screening Mammogram Bilateral W Damon W Implants (01/04/2024 4:01 PM CDT) Anatomical Region Laterality Modality Breast Bilateral Mammography Narrative 01/05/2024 8:27 AM CDT Examination: Screening Mammogram Bilateral W Damon W Implants: 01/04/24 Clinical: Encounter for screening mammogram for malignant neoplasm of breast. Prior Study Comparisons: Comparison was made to the prior available relevant studies at the time of interpretation. Findings: Screening Mammogram Bilateral W Damon W Implants Bilateral No significant masses, malignant type calcifications, skin thickening, nipple retraction, or significant lymphadenopathy is noted in either breast. Computer Aided Detection was utilized for the interpretation of this study. There are scattered areas of fibroglandular density. The patient will be notified of results by letter. Impression: BI-RADS ATLAS category (overall): 1 - Negative Overall Assessment: 1 - Negative Recommendation: - Routine Screening Mammogram in 1 Yr for both breasts. Ayse Payne MD IMG MAMMO PROCEDURES Aria l Result * Pap and High Risk HPV, reflex to Genotyping (10/20/2021 4:09 PM CDT) Thin prep (Pap test) 10/20/2021 4:09 PM CDT 10/22/2021 9:41 AM CDT Narrative PATHOLOGY [facility] - 10/26/2021 3:52 PM CDT [facility] results best viewed via link to PDF [address] [address] Tele: Marycarmen Gutierrez MD - Secretarial Stenographer CYTOLOGY REPORT Note to Patients: This report may contain a detailed description of human tissue sent by a health care provider to the laboratory for pathologic evaluation. The content of this report is essential for diagnosis and may provide important critical findings. This information may be unfamiliar to patients to review without a medical professional present. It is advised that the patient review this report in the presence of a health care provider who can answer questions and explain the details. Patient Name: ALISE ELLIS Address: [address] [place] [address], [place] [address] Gender: F : 1965 (Age: 55) Service: Location: [facility] #: [id number] Patient [place] [facility] [place] Taken: 10/20/2021 Reported: 10/26/2021 Physician(s): Ayse Payne M.D. FINAL DIAGNOSIS: Specimen Type: - ThinPrep Pap and HPV w/ reflex Genotyping Statement of Specimen Adequacy: Source: Cervical/Endocervical - Satisfactory for evaluation - Case screened using computer assisted imaging technology and manually re- screened by a patient appointment coordinator. General Categorization: - Negative for intraepithelial lesion or malignancy Interpretation: - Specimen sent for HPV testing per physician order. cad/10/26/2021 15:52Jahaira Hawkins M.S., EULALIA (ASCP) Report Reviewed and Electronically Signed By Jahaira Hawkins M.S., EULALIA (ASCP)Clerical Data Follow A; G0145 ADDENDA: Addendum Comment Ancillary Testing: HPV High Risk Group (16, 18, 31, 33, 35, 39, 45, 51, 52, 56, 58, 59, 66 and 68) - Not Detected Reference Range: Not Detected This test was performed using the DERIK 4800 EULALIA BeltranASCP) Date Ordered: 10/26/2021 Status: Signed Out Date Complete: 10/28/2021 By: EULALIA Beltran (ASCP) Date Reported: 10/28/2021 CLINICAL DIAGNOSIS AND HISTORY Menstrual History: Menopausal: ERA REPORT IMAGES AND/OR SCANNED DOCUMENTS ONLY VIEWABLE IN PDF FORMAT The Pap test is a screening test used to aid in the detection of cervical cancer and its precursors. It should not be the sole means by which malignant and premalignant lesions are diagnosed. Both false negative and false positive results may occur. It also has poor sensitivity for the detection of endometrial lesions and should not be used to evaluate suspected endometrial abnormalities. For these reasons it is most important to obtain Pap tests at regular intervals, as recommended by your physician or nurse practitioner. Ayse Payne MD LAB CYTOLOGY ORDERABLES F inal Result PATHOLOGY [facility] Laboratory Receiving [address] [place] [address] from Last 3 Months or Most Recently Relevant to Health [place] [address] [place] [address] [place] [address] [address] [place] [address] [facility] ACCESS CHOICE Care Teams Curing Pickling Packer Relationship Specialty Start Date End Date Ashley Smith DO PCP - General Family Medicine 10/25/22 Clinic, Pcp 04/13/17
--- OUTSIDE RECORDS SUMMARY | 2024-05-09 07:41 | XMS_ITS | Clinical Summary ---
Author Organization [facility] Address [address] [place] [address] Phone Care Team Providers Care Svp Digital Sales Name Role Phone Clinic, Pcp Unavailable Unavailable Ashley Smith DO Primary Care Provider [phone]- [phone] Allergies Active Allergy Reactions Criticality Noted Date [...] year. Assessment & Plan (05/17/2019 3:15 PM JET WIPER): Pelvic exam and breast exam done. Mammogram has been scheduled. Return in one year. Assessment & Plan (05/08/2018 11:11 PM JET WIPER): Pap smear and breast exam done. GI list Return in one year. Assessment & Plan (03/29/2017 9:25 AM JET WIPER): Pap smear and breast exam done. Schedule mammogram. Calcium and vitamin D discussed with patient. Rtn in one year. Menopausal syndrome (hot flashes) 03/29/2017 Assessment & Plan (08/26/2020 9:45 PM CDT): Discussed pros/cons of HRT. Discussed options. Will start Vivelle Dot 0.05 twice weekly and prometrium 100 qhs. Assessment & Plan (05/08/2018 11:12 PM JET WIPER): Discussed options for treatment of hot flashes and night sweats. Assessment & Plan (03/29/2017 9:26 AM JET WIPER): Discussed options for treatment including HT, effexor, paxil, clonidine, otc remedies and treatment with Ambien. Alise will try Remifemin first. Migraines 04/18/2012 Encounters Date Type Department Care Team Description 04/25/2024 Telephone [facility] Women[facility] Care [address] [place] [address] Ayse Payne MD provider call request from Last 3 Months Immunizations Name Administration Dates Next Due Tdap 08/07/2021 Surgical History Surgery Date Site/Laterality Comments TUBAL LIGATION Bilateral COLPOSCOPY W/ BIOPSY / CURETTAGE 03/28/2007 - 03/27/2008 AUGMENTATION MAMMOPLASTY Bilateral VAGINAL DELIVERY times three LITHOTRIPSY 11/26/2022 - 12/25/2022 Medical History Medical History Date Comments Dysplasia of cervix, low grade (PRICILLA 1) 2007 times three Kidney stone 11/2022 Family History Medical History Relation Name Comments Hypertension Father Melanoma Father Hypertension Mother Pneumonia Mother cause of Arthritis Other Diabetes Other Breast cancer Neg Hx Colon cancer Neg Hx Ovarian cancer Neg Hx Relation Name Status Comments Father Mother Other Social History Tobacco Use Types Packs/Day Years Used Date Smoking Tobacco: Never Smokeless Tobacco: Never Tobacco Cessation:Counseling Given: Not Answered Alcohol Use Standard Drinks/Week Comments Yes 0 (1 standard drink = 0.6 oz pur e alcohol) Comments No Sex and Gender Information Value Date Recorded Sex Assigned at Not on file Legal Sex Female 1:22 AM JET WIPER Gender Identity Not on file Sexual Orientation Not on file Obstetrics History Para Term AB IAB SAB Ectopic Multiple Livin g Live Births 3 3 3 3 3 Date Outcome GA Total Labor Labor/2nd/3rd Weight Sex Type Anes PTL Dawn A1 A5 Name Clin Term Term Term Last Filed Vital Signs Vital Sign Reading [...] 11/01/2023 3:50 PM CDT Plan of Treatment Health Maintenance Due Date Last Done Comments Colon Cancer Screening-Colonoscopy 1965 Depression Screening 1965 Hepatitis C Screening 1965 Pneumococcal vaccine <65 (1 of 2 - PCV) 12/10/1973 Hepatitis B Screening 12/10/1985 Zoster Vaccine (1 of 2) 12/10/2017 Cervical Cancer Screening 10/20/2022 10/20/2021, 03/2020 Influenza Vaccine (#1) 2023 Regular Well Visit/Exam 18-64 10/31/2024, 10/21/2022, 10/20/2021, Additional history exists Breast Cancer Screening-Mammogram 01/03/2025 01/04/2024, 11/22/2022, 11/13/2021, Additional history exists DTaP/Tdap/Td Vaccine (2 - Td or Tdap) 08/08/2031 08/07/2021 Procedures Procedure Name Priority Date/Time Associated Diagnosis [...] Mammogram in 1 Yr for both breasts. us Ayse Payne MD IM MAMMO PROCEDURES Aria l Result * Pap and High Risk HPV, reflex to Genotyping (10/20/2021 4:09 PM CDT) Thin prep (Pap test) 10/20/2021 4:09 PM CDT 10/22/2021 9:41 AM CDT Narrative PATHOLOGY [facility] - 10/26/2021 3:52 PM CDT EPIC results best viewed via link to PDF [address] [address] Tele: Marycarmen Gutierrez MD - Business Administrator CYTOLOGY REPORT Note to Patients: This report [...] the details. Patient Name: ALISE ELLIS Address: [address] [place] [address] Gender: F : 1965 (Age: 55) Service: Location: N : [id number] [facility] #: [id number] Patient Type: [facility] SPECIMEN Taken: 10/20/2021 Reported: 10/26/2021 Physician(s): Ayse aPyne M.D. FINAL DIAGNOSIS: Specimen Type: - ThinPrep Pap and HPV w/ reflex Genotyping Statement of Specimen Adequacy: Source: Cervical/Endocervical - Satisfactory for evaluation - Case screened using computer assisted imaging technology and manually re- screened by a engine room operator. General Categorization: - Negative for intraepithelial lesion [...] was performed using the DERIK 4800 EULALIA Beltran (ASCP) Date Ordered: 10/26/2021 Status: Signed Out Date [...] LAB CYTOLOGY ORDERABLES F inal Result PATHOLOGY [facility] Laboratory Receiving [address] [place] [address] from Last 3 Months or Most Recently Relevant to Health Maintenance Insurance [facility] [place] [address] [facility] [place] [address] [facility] [place] [address] [facility] ACCESS CHOICE Care Teams Svp Digital Sales Relationship Specialty Start Date End Date Ashley Smith DO PCP - General Family Medicine 10/25/22 Clinic, Pcp 04/13/17
--- OUTSIDE RECORDS SUMMARY | 2024-05-09 07:41 | XMS_ITS | Encounter Summary ---
Author Organization [facility] Healthcare Address [address] [place] [address] Care Team Providers Care Sed High School Teacher Name Role Phone Clinic, Pcp Unavailable Unavailable Ashley Smith DO Primary Care Provider [phone]- [phone] Reason for Visit * Reason Onset Date Comments provider call request 04/25/2024 Encounter Details Date Type Department Care Team (Late st Contact Info) Description 04/25/2024 Telephone [facility] Women's Care [address] [address] Ayse Payne MD [address] [place] [phone] provider call request Social History Tobacco Use Types Packs/Day Years Used Date Smoking Tobacco: Never Smokeless Tobacco: Never Alcohol Use Standard Drinks/Week Comments Yes 0 (1 standard drink = 0.6 oz pur e alcohol) Comments No Sex and Gender Information Value Date Recorded Sex Assigned at Not on file Legal Sex Female 1:22 AM SKIN DRIER Gender Identity Not on file Sexual Orientation Not on file documented as of this encounter Miscellaneous Notes * Telephone Encounter - Beverly Ross RN - 04/25/2024 2:42 PM SKIN DRIER Pt lvm asking for a call due to has questions with her mammogram results compared to past ones. DRIER documented in this encounter Plan of Treatment Not on file documented as of this encounter Visit Diagnoses Not on filedocumented in this encounter Care Teams Sed High School Teacher Relationship Specialty Start Date End Date Ashley Smith DO PCP - General Family Medicine 10/25/22 Clinic, Pcp 04/13/17 documented as of this encounter
[2024-05-09 07:42] VITALS: BP 148/92; PULSE 119; RESP 16; TEMP 36.4; O2SAT 99
--- NOTE | 2024-05-09 08:37 | ED_ITS ---
HPI - Head Injury General Chief complaint: Head Injury Stated complaint: fell and struck head, on blood thinner Time Seen by Provider: 05/09/24 08:04 History of Present Illness HPI Narrative: Pt slipped on ice and fell backward and struck head on ground. Pt denies LOC. Pt has some mild tenderness to back of head and tightness to muscles of neck. Pt has no weakness or numbness. Pt on Eliquis. Related Data Home Medications ?Medication ?Instructions ?Recorded ?Confirmed ?Last Taken ?Type sumatriptan succinate 50 mg tablet 50 mg PO .At onset of migraine PRN 04/12/24 04/24/24 04/05/24 History migraine headache Allergies Allergy/AdvReac Type Severity Reaction Status Date / Time Penicillins Allergy Unknown Verified 05/09/24 07:45 Review of Systems Review of Systems: All systems reviewed & are unremarkable except as noted in HPI and below PMFSH Past Medical History Medical History Vitamin D deficiency, unspecified Kidney stones Migraine Surgical History Surgical History H/O lithotripsy Hx of breast implants, bilateral Family History Family History Father Diabetes mellitus Hypertension Heart disease Mother Hypertension Sibling Diabetes mellitus Social History Social History Smoking status: Never smoker Second hand tobacco smoke exposure: No Alcohol intake: current Alcohol use details: rarely Substance use: never Do You Feel Safe in your Home?: Yes Lack of Transportation: No Lack of Food: Never True Current Housing: I Have Housing Concerned About Future Housing: No Difficulty Paying Gas/Electric Bills: No Difficulty Paying for Meds: No Currently Unemployed: No Education: Bachelor's Degree Difficulty w/ Childcare or Family Care: No Spiritual care concerns: No Exam Const: General: healthy appearing, no acute distress and alert Nutritional Appearance: well nourished Orientation/consciousness: patient oriented x3 Limitations: no limitations HENMT: Head: hematoma (mid occpital) Neck: Neck: normal visual inspection and no lymphadenopathy Other: no midline pain Resp: Effort & Inspection: normal respiratory effort Auscultation: clear to auscultation bilaterally Cardio: Rate: regular rate Rhythm: regular rhythm GI: GI Palp: Yes Soft to palpation Auscultation: normal bowel sounds Back/Spine/Pelvis: Back: no CVA tenderness Skin: General skin exam: normal color Rashes: no rashes Wounds: no wounds Neuro: General: patient oriented x3, moves all extremities, no meningeal signs and no focal motor deficits Speech: normal speech Extrem: General: normal to inspection and no clubbing, cyanosis or edema Psych: Mental Status: mental status grossly normal Affect: normal affect Attitude: cooperative Course Vital Signs Vital signs: Vital Signs Temperature 97.6 F 05/09/24 07:42 Pulse Rate 119 H 05/09/24 07:42 Respiratory Rate 16 05/09/24 07:42 Blood Pressure 148/92 H 05/09/24 07:42 Pulse Oximetry 99 05/09/24 07:42 Oxygen Delivery Room Air 05/09/24 07:42 Temperature 97.6 F 05/09/24 07:42 Pulse Rate 119 H 05/09/24 07:42 Respiratory Rate 16 05/09/24 07:42 Blood Pressure 148/92 H 05/09/24 07:42 Pulse Oximetry 99 05/09/24 07:42 Oxygen Delivery Room Air 05/09/24 07:42 MDM - Head Injury MDM Narrative Medical decision making narrative: Pt fell aqnd struck head on ground no loc. ct head and c spine neg. home ice elvate tylenol for pain Discharge Plan Discharge Clinical Impression: Closed head injury Patient Disposition: Home, Self-Care Condition: Stable Instructions: Antibiotic Form, Head Injury (ED) Patient Language: Bangladeshi Prescriptions: No Action sumatriptan succinate 50 mg tablet 50 mg PO .At onset of migraine PRN (Reason: migraine headache) metoprolol tartrate 25 mg tablet 12.5 mg PO BID Qty: 30 0RF Eliquis 5 mg tablet 5 mg PO BID Qty: 180 1RF Rx Instructions: Please take Eliquis 10 mg PO BIB until 04/18 morning and from 04/18 evening take Eliquis 5 mg PO BID Follow-up/Referrals: Ashley Smith DO [Primary Care Provider] -
--- OUTSIDE RECORDS SUMMARY | 2024-05-09 08:37 | XMS_ITS | Clinical Summary ---
Author Organization [facility] Smita smallwood [facility] Address [address] [place] [address] Care Team Providers Care Food Service Steward Name Role Phone Unavailable Primary Care Provider Unavailabl e Social History Tobacco Use Types Packs/Day Years Used Date Smoking Tobacco: Never Assessed Comments Unknown Sex and Gender Information Value Date Recorded Sex Assigned at Not on file Legal Sex Female 11:14 AM MILK ROUTE DELIVERER Gender Identity Not on file Sexual Orientation Not on file Plan of Treatment Upcoming Encounters Date Type Department Care Team (Late st Contact Info) Description 05/15/2024 3:00 PM MILK ROUTE DELIVERER Office Visit [facility] - [place] [address] [facility] [address] [place] [address] Jerry Rivera MD [address] [facility] [address] [facility] [place] [address] Health Maintenance Due Date Last Done Comments DTAP/TDAP/TD VACCINES (1 - Tdap) 12/10/1986 HEPATITIS B VACCINES (1 of 3 - 19+ 3-dose series) 11/26 CERVICAL CANCER SCREENING 12/10/1997 BREAST CANCER SCREENING 2007 COLORECTAL SCREENING 12/10/2012 Colorectal Cancer Screening 12/10/2012 FIT-DNA Q 3 years 12/10/2012 FIT/FOBT Q 1 year 12/10/2012 Flex Sig/CT Colonography Q 5 years 12/10/2012 ZOSTER VACCINE (1 of 2) 12/10/2017 INFLUENZA VACCINE (#1) 2023
--- OUTSIDE RECORDS SUMMARY | 2024-05-09 08:37 | XMS_ITS | Clinical Summary ---
Author Organization [facility] Address [address] [place] [address] Care Team Providers Care Certified Athletic Trainer Name Role Phone Ashley Smith Primary Care Provider [phone] Allergies Active Allergy Reactions Criticality Noted Date Comments Penicillins Hives,Rash,Other (see comment) Medium 08/2005 Medications ELIQUIS 5 MG tablet 5 Active metoprolol tartrate (LOPRESSOR) 25 MG tablet TAKE 1/2 A TABLET BY MOUTH TWICE DAILY. 5 Active SUMAtriptan (IMITREX) 50 MG tablet TAKE 1 TABLET BY MOUTH AT ONSET OF HEADACHE. IF NO RELIEF MAY REPEAT 1 TABLET AFTER AT LEAST 2 HOURS. MAXIMUM 4 TABLETS IN 24 HOURS 4 Active buPROPion (WELLBUTRIN) 100 MG tablet Take 1 tablet (100 mg total) by mouth 2 (two) times daily. 4 05/18/19 25 Active buPROPion (WELLBUTRIN) 100 MG tablet 4 05/01/19 25 Discontinue d(Discontin ued by another clinician) phentermine (ADIPEX-P) 37.5 MG tablet 4 05/01/19 25 Discontinue d(Discontin ued by another clinician) Active Problems Problem Noted Date Diagnosed Date Thrombophlebitis of internal jugular vein 2024 Encounter for weight loss counseling 10/10/2023 Fatty liver 10/03/2023 Metabolic syndrome 10/03/2023 Sleep apnea 10/03/2023 Abnormal liver function tests 05/17/2019 Menopausal syndrome (hot flashes) 03/29/2017 Migraines 04/18/2012 Encounters Date Type Department Care Team Description 05/02/2024 2:00 PM APPLE PACKING HEADER Office Visit [facility] [address] [place] [address] Jair Man MD Neck Swelling 05/02/2024 Travel 05/02/2024 Abstract [facility] [address] [place] [address] Elisha Manzo MA 05/01/2024 Scan [facility] [address] [place], [place] [address] Scanned, Doc Pccl 05/01/2024 Orders Only [facility] [address] [place] [address] Lisseth Petersen MA 04/27/2024 Telephone [facility] [address] [place] [address] Jair Man MD Information ([facility]) 04/24/2024 Scan [facility] [address] [place] [address] Scanned, Doc Pccl 04/13/2024 Scan [facility] [address] [place] [address] Scanned, Doc Pccl 04/11/2024 Scan [facility] [address] [place], [place] [address] Scanned, Doc Pccl 04/11/2024 Scan [facility] [address] [place], [place] [address] Scanned, Doc Pccl 04/11/2024 Scan [facility] [address] [place] [address] Scanned, Doc Pccl 04/11/2024 Scan [facility] [address] [facility] [facility] [place] [address] Scanned, Doc Pccl from Last 3 Months Immunizations Name Administration Dates Next Due Tdap (Generic) 08/07/2021 Family History Medical History Relation Comments Diabetes Father Heart Disease Father Hypertension Father Hypertension Mother Relation Status Comments Father Mother Social History Tobacco Use Types Packs/Day Years Used Date Smoking Tobacco: Never Smokeless Tobacco: Never Comments Unknown Sex and Gender Information Value Date Recorded Sex Assigned at Female 05/02/2024 1:54 PM APPLE PACKING HEADER Legal Sex Female 8:54 AM APPLE PACKING HEADER Gender Identity Not on file Sexual Orientation Not on file Last Filed Vital Signs Vital Sign Reading Time Taken Comments Blood Pressure 150/90 05/02/2024 2:20 PM APPLE PACKING HEADER Pulse 91 05/02/2024 2:20 PM APPLE PACKING HEADER Temperature - - Respiratory Rate - - Oxygen Saturation - - Inhaled Oxygen Concentration - - Weight 72.2 kg (159 lb 3.2 oz) 05/02/2024 2:20 P M APPLE PACKING HEADER Height 162.6 cm (5' 4 ) 05/02/2024 2:20 PM APPLE PACKING HEADER Body Mass Index 27.33 05/02/2024 2:20 PM APPLE PACKING HEADER Plan of Treatment Health Maintenance Due Date Last Done Comments Colorectal Cancer Screening Colonoscopy (10 Years) 1967 Annual Physical 12/10/1970 Hepatitis C 12/10/1985 Hepatitis B Vaccines (1 of 3 - 19+ 3-dose series) 12/10/1986 Cervical Cancer Screening Pap with HPV Testing (Age 30 to 64) Every 5 Years 12/10/1997 Zoster Vaccines (1 of 2) 12/10/2017 COVID-19 Vaccine ( - season) 2023 Influenza Adult (#1) 2023 Cervical Cancer Screening Pap Smear (Age 30 to 64) Every 3 Years 10/20/2024 10/20/2021 Cervical Cancer Screening with HPV 10/20/2024 Mammogram Screening 01/03/2026 01/04/2024, 10/10/2020, 04/25/2017, Additional history exists DTaP, Tdap and Td Vaccines (2 - Td or Tdap) 08/08/2031 08/07/2021 Meningococcal B Vaccine Aged Out No l onger eligible based on patient's age to complete this topic Meningococcal Vaccine Aged Out No andreina remington eligible based on patient's age to complete this topic Pneumococcal Vaccine: Pediatrics (0 to 5 Years) and At-Risk Patients (6 to 64 Years) Aged Out No longer eligible based on patient's age to complete this topic RSV Immunizations Under 20 Months Aged Out No longer eligible based on patient's age to complete this topic Procedures Procedure Name Priority Date/Time Associated Diagnosis Comments CBC (OUTSIDE LAB) Routine 04/14/2024 COMPREHENSIVE METABOLIC PANEL Routine 04/14/2024 VASCULAR LAB GENERIC (SCAN ORDER) Routine 04/13/2024 ECHO GENERIC (SCAN ORDER) Routine 04/11/2024 CT GENERIC Routine 04/11/2024 CT GENERIC Routine 04/11/2024 from Last 3 Months Results * CBC (OUTSIDE LAB) (04/14/2024) WBC 8.5 HGB 12.7 HCT 38.4 PLT 286 04/14/2024 us Default History Genericprovider LAB-OUTSIDE/ABST RACTED Edited Result - Final * (ABNORMAL) COMPREHENSIVE METABOLIC PANEL (04/14/2024) SODIUM S/P/B 136 POTASSIUM S/P/B 3.9 CO2 27 CHLORIDE S/P/B 105 GLUCOSE 95 mg/dL CALCIUM S/P/B 8.1 BUN 12 CREATININE S/P/B 0.65 0.5 - 1.0 GFR ESTIMATE >60 ALKALINE PHOSPHATASE S/P/B 60 ALT 14 AST 21 BILIRUBIN TOTAL S/P/B 0.6 ALBUMIN S/P/B 3.4(A) 3.5 - 5.0 TOTAL PROTEIN S/P/B 6.0 04/14/2024 us Default History Genericprovider LABORATORY Final Result * VASCULAR LAB (04/13/2024) us Doc Pccl Scanned SCANNING Final Result [facility] * CT (04/11/2024) Only the most recent of2 resultswithin the time period is included. Anatomical Region Laterality Modality Other us Doc Pccl Scanned SCANNING Final Result * ECHO (04/11/2024) Anatomical Region Laterality Modality Other us Doc Pccl Scanned SCANNING Final Result from Last [address] [place] [address] [facility] Care Teams Certified Athletic Trainer Relationship Specialty Start Date End Date Ashley Smith DO [address] [place] [address] PCP - General FAMILY PRACTICE 05/02/24
--- OUTSIDE RECORDS SUMMARY | 2024-05-09 08:38 | XMS_ITS | Encounter Summary ---
Author Organization [facility] Address [address] [place] [address] Care Team Providers Care Farm Manager Name Role Phone Ashley Smith DO Primary Care Provider [phone] Encounter Details Date Type Department Care Team (Late st Contact Info) Description 05/01/2024 Scan [facility] [address] Scanned, Doc Pccl Social History Tobacco Use Types Packs/Day Years Used Date Smoking Tobacco: Never Smokeless Tobacco: Never Comments Unknown Sex and Gender Information Value Date Recorded Sex Assigned at Female 05/02/2024 1:54 PM SALON ASSISTANT Legal Sex Female 8:54 AM SALON ASSISTANT Gender Identity Not on file Sexual Orientation Not on file documented as of this encounter Plan of Treatment Not on file documented as of this encounter Visit Diagnoses Not on filedocumented in this encounter Care Teams Farm Manager Relationship Specialty Start Date End Date Ashley Smith DO [address] [place] [address] PCP - General FAMILY PRACTICE 05/02/24 documented as of this encounter
--- OUTSIDE RECORDS SUMMARY | 2024-05-09 08:38 | XMS_ITS | Clinical Summary ---
Author Organization [facility] [employer] Address [address] [place] [address] Care Team Providers Care Salesperson Women'S Dresses Name Role Phone Michael Murali Cooper DO Primary Care Provider [phone] Ayse Payne MD Unavailable [phone] Source Comments [facility],non-owned Affiliates and Associated Physician Practices is amultiple site organization consisting of ambulatory clinics and hospital sitesin [place], [place], [place] and [place]. This disclosure is being madepursuant to the Care Everywhere program and may not contain all information available regarding this patient. Last updated 17.[facility] [employer] Allergies Active Allergy Reactions Criticality Noted Date [...] PM CDT Narrative Resulting Agency Comment [facility] [address] [phone] Orville Tavares III, DO LAB - CHEMISTRY ORD ERABLES [facility] ACCOUNT BILL from Last 3 Months or Most Recently Relevant to Health Maintenance Care Teams Salesperson Women'S Dresses Relationship Specialty Start Date End Date Murali Rodriguez DO PCP - General Family Medicine 09/05/13 Ayse Payne MD [address], [address] Obstetrics and Gynecology 11/20/14
--- OUTSIDE RECORDS SUMMARY | 2024-05-09 08:38 | XMS_ITS | Encounter Summary ---
Author Organization [facility] Address [facility] [place] [address] Care Team Providers Care Junior High Math Teacher Name Role Phone Ashley Smith DO Primary Care Provider [phone] Encounter Details Date Type Department Care Team (Late st Contact Info) Description 05/02/2024 Abstract [facility] [address] Elisha Manzo MA Social History Tobacco Use Types Packs/Day Years Used Date Smoking Tobacco: Never Smokeless Tobacco: Never Comments Unknown Sex and Gender Information Value Date Recorded Sex Assigned at Female 05/02/2024 1:54 PM CONCRETE FOREMAN Legal Sex Female 8:54 AM CONCRETE FOREMAN Gender Identity Not on file Sexual Orientation Not on file documented as of this encounter Plan of Treatment Not on file documented as of this encounter Procedures Procedure Name Priority Date/Time Associated Diagnosis Comments CBC (OUTSIDE LAB) Routine 04/14/2024 COMPREHENSIVE METABOLIC PANEL Routine 04/14/2024 documented in this encounter Results * CBC (OUTSIDE LAB) (04/14/2024) WBC [...] us Default History Genericprovider LABORATORY Final Result documented in this encounter Visit Diagnoses Not on filedocumented in this encounter Care Teams Junior High Math Teacher Relationship Specialty Start Date End Date Ashley Smith DO [address] [place] [address] PCP - General FAMILY PRACTICE 05/02/24 documented as of this encounter
--- OUTSIDE RECORDS SUMMARY | 2024-05-09 08:38 | XMS_ITS | Referral Summary ---
Author Organization [facility] [employer] Address [address] [place] [address] Care Team Providers Care Switch Foreman Name Role Phone RodriguezMurali DO Primary Care Provider [phone] Ayse Payne MD Unavailable [phone] Source Comments [facility],non-owned Affiliates and Associated Physician Practices is amultiple site organization consisting of ambulatory clinics and hospital sitesin [place], [place] and [place]. This disclosure is being madepursuant to the Care Everywhere program and may not contain all information available regarding this patient. Last updated 17.[facility] [employer] Allergies Active Allergy Reactions Criticality Noted Date [...] PM CDT Narrative Resulting Agency Comment [facility] [place] [id number] [facility] [phone] Orville Tavares III, DO LAB - CHEMISTRY ORD ERABLES [facility] ACCOUNT BILL from Last 3 Months or Most Recently Relevant to Health Maintenance Care Teams Switch Foreman Relationship Specialty Start Date End Date Murali Rodriguez DO PCP - General Family Medicine 09/05/13 Ayse Payne MD [address], [address] Obstetrics and Gynecology 11/20/14
--- OUTSIDE RECORDS SUMMARY | 2024-05-09 08:38 | XMS_ITS | Encounter Summary ---
Author Organization [facility] Address [address] [place] [address] Care Team Providers Care Teleservices Representative Name Role Phone Clinic, Pcp Unavailable Unavailable Ashley Smith DO Primary Care Provider [phone] Reason for Visit * Reason Onset Date Comments provider call request 04/25/2024 Encounter Details Date Type Department Care Team (Late st Contact Info) Description 04/25/2024 Telephone [facility] [address] [address] Ayse Payne MD [address] [place] [phone] provider call request Social History Tobacco Use Types Packs/Day Years Used Date Smoking Tobacco: Never Smokeless Tobacco: Never Alcohol Use Standard Drinks/Week Comments Yes 0 (1 standard drink = 0.6 oz pur e alcohol) Comments No Sex and Gender Information Value Date Recorded Sex Assigned at Not on file Legal Sex Female 1:22 AM DECISION UNIT RN Gender Identity Not on file Sexual Orientation Not on file documented as of this encounter Miscellaneous Notes * Telephone Encounter - Beverly Ross RN - 04/25/2024 2:42 PM DECISION UNIT RN Pt lvm asking for a call due to has questions with her mammogram results compared to past ones. SION UNIT RN documented in this encounter Plan of Treatment Not on file documented as of this encounter Visit Diagnoses Not on filedocumented in this encounter Care Teams Teleservices Representative Relationship Specialty Start Date End Date Ashley Smith DO PCP - General Family Medicine 10/25/22 Clinic, Pcp 04/13/17 documented as of this encounter
--- OUTSIDE RECORDS SUMMARY | 2024-05-09 08:38 | XMS_ITS | Patient Health Summary ---
Author Organization [facility] Address [address] [facility] [place] [address] Care Team Providers Care Solo Truck Driver Name Role Phone Michael Murali Cooper DO Primary Care Provider Ayse Payne MD Unavailable [phone] Note from [facility],non-owned Affiliates and Associated Physician Practices is amultiple site organization consisting of ambulatory clinics and hospital sitesin [place], [place], [place] and [place]. This disclosure is being madepursuant to the Care Everywhere program and may not contain all information available regarding this patient. Last updated 17.[facility] Allergies * Penicillins(Urticaria) Medications * Be aware [...] Strep A Internal Control Present Lot # [id number] Expiration Date [id number] Throat ENTIRE THROAT (SURFACE REGION OF NECK) / Unknown 01/22/2016 Aurora Lopes BOTTLE WASHER-FLASH DESIGNER LAB - POINT OF CARE ORDERABLES * TSH REFLEX FREE T4 (11/20/2014 10:19 AM CDT) TSH 1.630 0.450 - 4.500 uIU/mL [facility] ACCOUNT BILL Blood specimen (specimen) BLOOD SPECIMEN / Unknown 11/20/2014 10:19 AM CDT 11/20/2014 12:19 PM CDT Narrative Resulting Agency Comment [address] [phone] Orville Cullen Intrakr, DO LAB - CHEMISTRY ORD ERABLES Performing Organization Address City/[facility] de Phone Number [facility] ACCOUNT BILL [...] 12:19 PM CDT Narrative Resulting Agency Comment [place] [id number] [facility] [id number] Orville Cullen Intrakr, DO LAB - CHEMISTRY ORD ERABLES Performing Organization Address City/[facility]/ZIP Co de Phone Number [facility] ACCOUNT [...] PM CDT Narrative Resulting Agency Comment [facility] [address] [phone] Orville Tavares III, DO LAB - HEMATOLOGY [...] PM CDT Narrative Resulting Agency Comment [facility] [address] [phone] Orville Tavares III, DO LAB - CHEMISTRY [...] PM CDT Narrative Resulting Agency Comment [facility] [place] [address] [facility] [phone] Orville Cullen Chaitanya III, DO LAB - CHEMISTRY ORD ERABLES [facility] ACCOUNT BILL * TSH (03/30/2013 10:42 AM COUNTER HAND) TSH 1.980 0.450 - 4.500 uIU/mL [facility] ACCOUNT BILL Blood specimen (specimen) BLOOD SPECIMEN / Unknown 03/30/2013 10:42 AM COUNTER HAND 03/30/2013 12:45 PM COUNTER HAND Narrative Resulting Agency Comment [facility] [place] [address] [facility] [phone] Murali Rodriguez DO LAB - CHEMISTRY ORDE TERRY Performing Organization Address City/[facility]/ZIP Co de Phone Number [facility] ACCOUNT [...] ultrasound. Rodríguez Tate DO ORDERABLES Care Teams Solo Truck Driver Relationship Specialty Start Date End Date Murali Rodriguez DO PCP - General Family Medicine 09/05/13 Ayse Payne MD [address], [address] Obstetrics and Gynecology 11/20/14
--- OUTSIDE RECORDS SUMMARY | 2024-05-09 08:38 | XMS_ITS | Referral Summary ---
Author Organization [facility]CA [facility]ON [facility] B UIM[facility]KOLING C Address [address] [place] [address] Phone Care Team Providers Care Parent Partner Name Role Phone Clinic, Pcp Unavailable Unavailable Ashley Smith DO Primary Care Provider [phone]- [phone] Encounters Date Type Department Care Team Description 04/25/2024 Telephone [facility] Medical [facility] Women[facility] Care [address] [facility] [address], [place] [address] Ayse Payne MD provider call [...] year. Assessment & Plan (05/17/2019 3:15 PM CAR DROPPER): Pelvic exam and breast exam done. Mammogram has been scheduled. Return in one year. Assessment & Plan (05/08/2018 11:11 PM CAR DROPPER): Pap smear and breast exam done. GI list Return in one year. Assessment & Plan (03/29/2017 9:25 AM CAR DROPPER): Pap smear and breast exam done. Schedule mammogram. Calcium and vitamin D discussed with patient. Rtn in one year. Menopausal syndrome (hot flashes) 03/29/2017 Assessment & Plan (08/26/2020 9:45 PM CDT): Discussed pros/cons of HRT. Discussed options. Will start Vivelle Dot 0.05 twice weekly and prometrium 100 qhs. Assessment & Plan (05/08/2018 11:12 PM CAR DROPPER): Discussed options for treatment of hot flashes and night sweats. Assessment & Plan (03/29/2017 9:26 AM CAR DROPPER): Discussed options for treatment including HT, effexor, [...] on file Legal Sex Female 1:22 AM CAR DROPPER Gender Identity Not on file Sexual Orientation [...] CDT 10/22/2021 9:41 AM CDT Narrative PATHOLOGY [facility] - 10/26/2021 3:52 PM CDT [facility] results best viewed via link to PDF [address] [address] Tele: Marycarmen Gutierrez MD - Digital Retoucher CYTOLOGY REPORT Note to Patients: This report [...] the details. Patient Name: ALISE ELLIS Address: [address] [place] [address], [place] [address] Gender: F : 1965 (Age: 55) Service: Location: [facility] #: [id number] Patient Type: [facility] [place]C[facility] Taken: 10/20/2021 Reported: 10/26/2021 Physician(s): Ayse Payne M.D. FINAL DIAGNOSIS: Specimen Type: - ThinPrep Pap and HPV w/ reflex Genotyping Statement of Specimen Adequacy: Source: Cervical/Endocervical - Satisfactory for evaluation - Case screened using computer assisted imaging technology and manually re- screened by a group burner machine. General Categorization: - Negative for intraepithelial lesion [...] LAB CYTOLOGY ORDERABLES F inal Result PATHOLOGY [facility] Laboratory Receiving [address] [place] [address] from Last 3 Months or Most Recently Relevant to Health [place] [address] [place] [address] [employer] [place] [address] [employer] [place] [address] [place] [address] [facility] ACCESS CHOICE Care Teams Parent Partner Relationship Specialty Start Date End Date Ashley Smith DO PCP - General Family Medicine 10/25/22 Clinic, Pcp 04/13/17
--- OUTSIDE RECORDS SUMMARY | 2024-05-09 08:38 | XMS_ITS | Clinical Summary ---
Author Organization [facility] B UIM[facility] C Address [address] [place] [address] Phone Care Team Providers Care Research Development Manager Name Role Phone Clinic, Pcp Unavailable Unavailable Ashley Smith DO Primary Care Provider [phone]- [phone] Allergies Active Allergy Reactions Criticality Noted Date [...] CDT): Continue low carb, low glycemic diet. lAise is currently on phentermine and Wellbutrin Continue [...] year. Assessment & Plan (05/17/2019 3:15 PM SPINNING MULE TENDER): Pelvic exam and breast exam done. Mammogram has been scheduled. Return in one year. Assessment & Plan (05/08/2018 11:11 PM SPINNING MULE TENDER): Pap smear and breast exam done. GI list Return in one year. Assessment & Plan (03/29/2017 9:25 AM SPINNING MULE TENDER): Pap smear and breast exam done. Schedule mammogram. Calcium and vitamin D discussed with patient. Rtn in one year. Menopausal syndrome (hot flashes) 03/29/2017 Assessment & Plan (08/26/2020 9:45 PM CDT): Discussed pros/cons of HRT. Discussed options. Will start Vivelle Dot 0.05 twice weekly and prometrium 100 qhs. Assessment & Plan (05/08/2018 11:12 PM SPINNING MULE TENDER): Discussed options for treatment of hot flashes and night sweats. Assessment & Plan (03/29/2017 9:26 AM SPINNING MULE TENDER): Discussed options for treatment including HT, effexor, paxil, clonidine, otc remedies and treatment with Ambien. Alise will try Remifemin first. Migraines 04/18/2012 Encounters Date Type Department Care Team Description 04/25/2024 Telephone [facility] Medical [facility] Women's Care [address] [place] [address] Ayse Payne MD provider call request [...] on file Legal Sex Female 1:22 AM SPINNING MULE TENDER Gender Identity Not on file Sexual Orientation [...] AM CDT Examination: Screening Mammogram Bilateral W Damno W Implants: 01/04/24 Clinical: Encounter for screening [...] CDT 10/22/2021 9:41 AM CDT Narrative PATHOLOGY [facility] - 10/26/2021 3:52 PM CDT EPIC results best viewed via link to PDF [address] [address] Tele: Marycarmen Gutierrez MD - Retail Associate Manager Bilingual CYTOLOGY REPORT Note to Patients: This report [...] the details. Patient Name: ALISE ELLIS Address: [address] [place] [address] Gender: F : 1965 (Age: 55) Service: Location: N : [id number] [facility] #: [id number] Patient Type: [facility] SPECIMEN Taken: 10/20/2021 Reported: 10/26/2021 Physician(s): Ayse Payne M.D. FINAL DIAGNOSIS: Specimen Type: - ThinPrep Pap and HPV w/ reflex Genotyping Statement of Specimen Adequacy: Source: Cervical/Endocervical - Satisfactory for evaluation - Case screened using computer assisted imaging technology and manually re- screened by a manager adobe. General Categorization: - Negative for intraepithelial lesion [...] LAB CYTOLOGY ORDERABLES F inal Result PATHOLOGY [facility] Laboratory Receiving [address] [place] [address] from Last 3 Months or Most Recently Relevant to Health Maintenance Insurance [facility] [place] [address] [facility] [place] [address] [facility] [place] [address] [facility] ACCESS CHOICE Care Teams Research Development Manager Relationship Specialty Start Date End Date Ashley Smith DO PCP - General Family Medicine 10/25/22 Clinic, Pcp 04/13/17
== END 2024-05-09 08:42 | disposition home or self-care (01) ==
PROVIDERS: Emergency Provider Emergency Medicine; PCP Family Medicine
DX: S00.03XA Contusion of scalp, initial encounter (principal); E55.9 Vitamin D deficiency, unspecified; Z87.442 Personal history of urinary calculi; W00.0XXA Fall on same level due to ice and snow, initial encounter
CPT/HCPCS: 70450; 72125; 99284

== ENCOUNTER 2024-07-03 09:23 | Outpatient (CLI) | payer BC, SELFPAY ==
--- NOTE | ~2024-07-03 | XR_ITS ---
XR abdomen/kub 1V 07/03/2024 09:44 Indication: Kidney stones Procedure: KUB Comparison: Comparison to multiple prior studies sequentially, with oldest reviewed study dated 10/07. Findings: Bowel gas pattern nonobstructive. No renal stones identified. No acute osseous abnormality. Lung bases unremarkable. Impression: 1: No acute abdominal abnormality. Reviewed, dictated and finalized at location A. Impression: 1: No acute abdominal abnormality.
--- OUTSIDE RECORDS SUMMARY | 2024-07-03 10:18 | XMS_ITS | Encounter Summary ---
Author Organization [facility] Address [facility] [place] [address] Care Team Providers Care Truck Dock Material Mover Name Role Phone Ashley Smith DO Primary Care Provider [phone] Encounter Details Date Type Department Care Team (Late st Contact Info) Description 05/02/2024 Abstract [facility] [address] Elisha Manzo MA Social History Tobacco Use Types Packs/Day Years Used Date Smoking Tobacco: Never Smokeless Tobacco: Never Comments Unknown Sex and Gender Information Value Date Recorded Sex Assigned at Female 05/02/2024 1:54 PM FIRST LINE SUPERVISOR Legal Sex Female 8:54 AM FIRST LINE SUPERVISOR Gender Identity Not on file Sexual Orientation [...] on filedocumented in this encounter Care Teams Truck Dock Material Mover Relationship Specialty Start Date End Date Ashley Smith DO [address] [place] [address] PCP - General FAMILY PRACTICE 05/02/24 documented as of this encounter
--- OUTSIDE RECORDS SUMMARY | 2024-07-03 10:18 | XMS_ITS | Patient Health Record ---
Author Organization [facility] Address [address] [facility] [address] [place] [address] Support Name Relationship Address Phone Drissapoorva Luci Guarantor Unknown Reason For Referral No Information [...] Tdap Unknown 07/19/2005 Administered migrated Leg Patid= [id number] Date=07/19/2005 Vac= Tdap Tdap IM Intramuscular 03/16/2011 Administered Plan Of Treatment No Information Insurance Providers Payer Name Payer Address Payer Phone Subscriber Number Group Number Insured Name Patient Relationship to Insured Coverage Start Date Coverage End Date [facility] [employer] [address] [address] [place] [address] [id number] Luci Ellis Self - patient is the insured 1
--- OUTSIDE RECORDS SUMMARY | 2024-07-03 10:18 | XMS_ITS | Referral Summary ---
Author Organization [facility]ANCA BARRON [facility] Krish UIAURELIANO C Address [address] [place] [address] Phone Care Team Providers Care Grid Molder Name Role Phone Clinic, Pcp Unavailable Unavailable Ashley Smith DO Primary Care Provider [phone] Encounters Date Type Department Care Team Description 05/31/2024 3:15 PM MARKETING PROGRAM COORDINATOR Office Visit [facility] Medical Group Cardiology at [address] [place] [address] Samir Tierney MD Other chest pain (Primary Dx) 05/14/2024 2:30 PM MARKETING PROGRAM COORDINATOR Ancillary Procedure [facility] Medical [facility] Cardiology [address] [facility] [address] [place] [address] Other chest pain 05/11/2024 2:30 PM MARKETING PROGRAM COORDINATOR Office Visit [facility] Medical [facility] Cardiology at [address] [place] [address] Samir Tierney MD Other chest pain (Primary Dx); Pulmonary embolism without acute cor pulmonale, unspecified chronicity, unspecified pulmonary embolism type (HCC) 04/25/2024 Telephone [facility] [address] [facility] [address], [place] [address] Ayse Payne MD provider call request from Last 3 Months Allergies Active Allergy Reactions Criticality Noted Date Comments Penicillins Hives,Rash,Urticaria Medium 04/18/2012 Medications calcium carbonate/vitam in D3 (CALCIUM 500 + D, D3, ORAL) Take by mouth. Active Eliquis 5 mg tablet Take 1 tablet (5 mg total) by mouth 2 (two) times a day Active metoprolol tartrate (LOPRESSOR) 25 mg immediate release tablet Take 0.5 tablets (12.5 mg total) by mouth 2 (two) times a day 04/14/2024 Active Active Problems Problem Noted Date Diagnosed Date Other chest pain 05/11/2024 Pulmonary embolism 05/11/2024 Encounter for weight loss counseling 10/10/2023 Assessment [...] year. Assessment & Plan (05/17/2019 3:15 PM MARKETING PROGRAM COORDINATOR): Pelvic exam and breast exam done. Mammogram has been scheduled. Return in one year. Assessment & Plan (05/08/2018 11:11 PM MARKETING PROGRAM COORDINATOR): Pap smear and breast exam done. GI list Return in one year. Assessment & Plan (03/29/2017 9:25 AM MARKETING PROGRAM COORDINATOR): Pap smear and breast exam done. Schedule mammogram. Calcium and vitamin D discussed with patient. Rtn in one year. Menopausal syndrome (hot flashes) 03/29/2017 Assessment & Plan (08/26/2020 9:45 PM CDT): Discussed pros/cons of HRT. Discussed options. Will start Vivelle Dot 0.05 twice weekly and prometrium 100 qhs. Assessment & Plan (05/08/2018 11:12 PM MARKETING PROGRAM COORDINATOR): Discussed options for treatment of hot flashes and night sweats. Assessment & Plan (03/29/2017 9:26 AM MARKETING PROGRAM COORDINATOR): Discussed options for treatment including HT, effexor, paxil, clonidine, otc remedies and treatment with Ambien. Alise will try Remifemin first. Migraines 04/18/2012 Immunizations Immunization Administration Dates Next Due Tdap 08/07/2021 Social History Tobacco Use Types Packs/Day Years Used Date Smoking Tobacco: Never Cigarettes Smokeless Tobacco: Never Tobacco Cessation:Counseling Given: Not Answered Alcohol Use Standard Drinks/Week Comments Yes 0 (1 standard drink = 0.6 oz pur e alcohol) Comments No Sex and Gender Information Value Date Recorded Sex Assigned at Not on file Legal Sex Female 1:22 AM MARKETING PROGRAM COORDINATOR Gender Identity Not on file Sexual Orientation Not on file Last Filed Vital Signs Vital Sign Reading Time Taken Comments Blood Pressure 136/88 05/31/2024 3:20 PM MARKETING PROGRAM COORDINATOR Pulse 86 05/31/2024 3:20 PM MARKETING PROGRAM COORDINATOR Temperature 36.8 C (98.2 F) 10/11/2019 8:43 AM CDT Respiratory Rate - - Oxygen Saturation 97% 05/31/2024 3:20 PM MARKETING PROGRAM COORDINATOR Inhaled Oxygen Concentration - - Weight 74.4 kg (164 lb) 05/31/2024 3:20 PM MARKETING PROGRAM COORDINATOR Height 162.6 cm (5' 4 ) 05/31/2024 3:20 PM MARKETING PROGRAM COORDINATOR Body Mass Index 28.15 05/31/2024 3:20 PM MARKETING PROGRAM COORDINATOR Plan of Treatment Not on file Procedures Procedure Name Priority Date/Time Associated Diagnosis Comments STRESS TEST ONLY TREADMILL Routine 05/14/2024 3:41 PM MARKETING PROGRAM COORDINATOR Other chest pain POCT LIPID PANEL Routine 05/11/2024 2:22 PM MARKETING PROGRAM COORDINATOR Other chest pain ELECTROCARDIOGRAM REPORT Routine 025 12:41 PM MARKETING PROGRAM COORDINATOR Other chest pain SCREENING MAMMOGRAM BILATERAL W DAMON W IMPLANTS Schedule Routine, Read Routine (OP Routine) 01/04/2024 4:01 PM CDT Encounter for screening mammogram for malignant neoplasm of breast PAP AND HIGH RISK HPV, REFLEX TO GENOTYPING Routine 10/20/2021 4:09 PM CDT Screening for cervical cancer from Last 3 Months or Most Recently Relevant to Health Maintenance Results * Stress Treadmill Test (05/14/2024 3:41 PM MARKETING PROGRAM COORDINATOR) Anatomical Region Laterality Modality Nuclear Medicine Addenda Addendum by Brandi Butt MD on 05/15/2024 8:40 AM MARKETING PROGRAM COORDINATOR TREADMILL STRESS TEST Patient Name: Alise Ellis Date of : 1965 Primary Physician: @PCP@ Requesting Physician: Dr. Tierney Type of stress test: Treadmill stress test Indication: chest pain Quality of the study: Good Interpretation: Baseline 12 lead EKG showed normal sinus rhythm. After obtaining baseline 12 lead EKG and blood pressure, patient exercised on treadmill using standard Jones protocol for 9 minutes and 44 seconds .Patient stopped exercise due to fatigue. Baseline blood pressure 128/88 mmHg, baseline heart rate 94 beats per minute, maximum blood pressure 172/74 mmHg, maximal heart rate 173 beats per minute which is 105 percent of maximum age predicted heart rate. Stress EKG: No ischemia Arrhythmias: Occasional PVCs Blood pressure response to exercise: Normal Heart rate recovery: Normal Conclusions: Treadmill stress test is negative for ischemia by EKG criteria at 105% of maximum age predicted heart rate. Good exercise capacity for patient's age. Voice recognition software was used to complete this document. Brandi Butt MD Samir Tierney MD CV STRESS PROCEDURES Italo dyu Result - Final * POCT lipid panel (05/11/2024 2:22 PM MARKETING PROGRAM COORDINATOR) Cholesterol, POC 187 mg/dL HDL, POC 74 mg/dL Triglycerides, POC 213 mg/dL LDL Cholesterol POC 71 mg/dL Chol/HDL Ratio, POC 2.5 Non-HDL Cholesterol, POC 113 mg/dL Cholesterol Total, POC 187 mg/dL Capillary blood 05/11/2024 2 :22 PM MARKETING PROGRAM COORDINATOR Samir Tierney MD POINT OF CARE TEST ORDER JACQUELINE Final Result * Electrocardiogram Report (05/11/2024 12:41 PM MARKETING PROGRAM COORDINATOR) Samir Tierney MD ECG ORDERABLES Final Re sult * Screening Mammogram Bilateral W Damon W [...] Ayse Payne MD IMG MAMMO PROCEDURES Aria amaya Result * Pap and High Risk HPV, reflex to Genotyping (10/20/2021 4:09 PM CDT) Thin prep (Pap test) 10/20/2021 4:09 PM CDT 10/22/2021 9:41 AM CDT Narrative PATHOLOGY [facility] - 10/26/2021 3:52 PM CDT [facility] results best viewed via link to PDF [address] [address] Tele: Marycarmen Gutierrez MD - Air Defense Specialist CYTOLOGY REPORT Note to Patients: This report [...] the details. Patient Name: ALISE ELLIS Address: [address] [place] [address] Gender: F : 1965 (Age: 55) Service: Location: N : [id number] [facility] #: [id number] Patient Type: [facility] Taken: 10/20/2021 Reported: 10/26/2021 Physician(s): Ayse Payne M.D. FINAL DIAGNOSIS: Specimen Type: - ThinPrep Pap and HPV w/ reflex Genotyping Statement of Specimen Adequacy: Source: Cervical/Endocervical - Satisfactory for evaluation - Case screened using computer assisted imaging technology and manually re- screened by a shoe coverer. General Categorization: - Negative for intraepithelial lesion or malignancy Interpretation: - Specimen sent for HPV testing per physician order. [facility]/10/26/2021 15:52Jahaira Hawkins M.S., EULALIA (ASCP) Report Reviewed [...] LAB CYTOLOGY ORDERABLES F inal Result PATHOLOGY [facility] Laboratory Receiving [address] [place] [address] from Last 3 Months or Most Recently Relevant to Health Maintenance Insurance [place] [address] [place] [address] [place] [address] [place] [address] [place] [address] [employer] [facility] Care Teams Grid Molder Relationship Specialty Start Date End Date Ashley Smith DO PCP - General Family Medicine 10/25/22 Clinic, Pcp 04/13/17
--- OUTSIDE RECORDS SUMMARY | 2024-07-03 10:18 | XMS_ITS ---
Author Organization [facility] isidro Address [address] [facility] [address] [place] [address] Care Team Providers Care Belt Measurer Name Role Phone zzzzMigration, zzzzProvider Unavailable Unav ailable REASON FOR VISIT EMR-Sotero Encounters Encounter Location Date Provider Diagnosis [facility] [address] [facility] [address] [place] [address] 01/15/2023 zzzzProvider zzzzMigration Plan Of Treatment Medication [...] use tid 07/21/2009 *Karan gray gth-form from [facility] for eRX* Progress Notes * Luci ELLIS LDOB:[birth year] (58 yo F)Acc No.[id number]:01/15/2023 Patient: Luci WOO :1965 A ge:57 Y S ex:Female Address:[address] [place] [address] [place], [address] * Refills Stop ALPRAZolam Tablet Disintegrating, 0.25 MG, Oral, 30.00, 1 Every Day At Bedtime Stop Effexor XR Capsule Extended Release 24 Hour, 75 MG, Oral, 30.00, 1 Every Day for depression Stop Inderal LA Capsule Extended Release 24 Hour, 60 mg, Oral, 180, take 1 capsule (60 mg) by oral route 1 times per day for 90 days, 2, 90 Stop Zithromax Z-Dexter Tablet, 250 MG, Oral, 1.00, as directed [...] Plan: * Treatment: * Procedure Codes: * true * Date: Generated for Bao baltazar/Sky/Rosalino on: 0 07/03/2024 10:18 AM CDT
--- OUTSIDE RECORDS SUMMARY | 2024-07-03 10:18 | XMS_ITS | Clinical Summary ---
Author Organization [facility] Address [address] [place] [address] Care Team Providers Care Ram Press Operator Name Role Phone Michael Murali Cooper DO Primary Care Provider [phone] Ayse Payne MD Unavailable [phone] Source Comments [facility],non-owned Affiliates and Associated Physician Practices is amultiple site organization consisting of ambulatory clinics and hospital sitesin [place], [place], [place] and [place]. This disclosure is being madepursuant to the Care Everywhere program and may not contain all information available regarding this patient. Last updated 17.[facility] Allergies Active Allergy Reactions Criticality Noted Date [...] VACCINE ( - 2023-2 5 season) 2023 DEPRESSION SCREENING 03/28/2024 INFLUENZA VACCINE (Season Ended) 2024 HIB VACCINE Aged Out No longer eligi ble based on patient's age to complete this topic HPV VACCINE Aged Out No longer eligi ble based on patient's age to complete this topic MENINGOCOCCAL (Group B) VACCINE SHARED DECISION-MAKING Aged Out No longer eligible based on patient's age to complete this topic MENINGOCOCCAL GROUPS A/C/Y/W VACCINE Aged Out No longer eligible b [...] PM CDT Narrative Resulting Agency Comment [facility] [address] [id number] Orville Tavares III, DO LAB - CHEMISTRY ORD ERABLES [facility] ACCOUNT BILL from Last 3 Months or Most Recently Relevant to Health Maintenance Care Teams Ram Press Operator Relationship Specialty Start Date End Date Murali Rodriguez DO PCP - General Family Medicine 09/05/13 Ayse Payne MD [address], [address] Obstetrics and Gynecology 11/20/14
--- OUTSIDE RECORDS SUMMARY | 2024-07-03 10:18 | XMS_ITS | Clinical Summary ---
Author Organization [facility] Smita smallwood [facility] Address [address] [address] Care Team Providers Care Fulfillment Associate Name Role Phone Unavailable Primary Care Provider Unavailabl e Allergies Active Allergy Reactions Criticality Noted Date Comments Penicillins Hives,Rash High 05/31/2005 Medications Eliquis 5 mg tablet Take 5 mg by mouth 2 times daily. 04/14/2024 Active metoprolol tartrate (LOPRESSOR) 25 mg tablet Take 12.5 mg by mouth 2 times daily. 04/14/2024 Active Active Problems No known active problems Encounters Date Type Department Care Team Description 06/13/2024 External Device Data STL ABSTRACTION Provider, Abstract 06/06/2024 External Device Data STL ABSTRACTION Provider, Abstract 06/05/2024 External Device Data STL ABSTRACTION Provider, Abstract 06/02/2024 External Device Data STL ABSTRACTION Provider, Abstract 06/01/2024 External Device Data STL ABSTRACTION Provider, Abstract 05/22/2024 External Device Data STL ABSTRACTION Provider, Abstract 05/22/2024 External Device Data STL ABSTRACTION Provider, Abstract 05/22/2024 External Device Data STL ABSTRACTION Provider, Abstract 05/18/2024 1:30 PM BUNG DROPPER Office Visit [facility] Oncology and Hematology [facility] [address] [place] [address] Jerry Rivera MD SOB (shortness of breath) (Primary Dx) 05/11/2024 Abstract [facility] Oncology [facility] [address] [place] [address] Jerry Rivera MD from Last 3 Months Family History Medical History Relation Name Comments No Known Problems Brother No Known Problems Child 1 No Known Problems Child 2 No Known Problems Child 3 Diabetes Father Heart Disease Mother No Known Problems Sister 1 Diabetes Sister 2 Relation Name Status Comments Brother Alive Child 1 Alive Child 2 Alive Child 3 Alive Father Alive Mother Sister 1 Alive Sister 2 Social History Tobacco Use Types Packs/Day Years Used Date Smoking Tobacco: Never Smokeless Tobacco: Never Tobacco Cessation:Counseling Given: Not Answered Alcohol Use Standard Drinks/Week Comments Yes 0 (1 standard drink = 0.6 oz pur e alcohol) Socially Comments Unknown Sex and Gender Information Value Date Recorded Sex Assigned at Not on file Legal Sex Female 11:14 AM BUNG DROPPER Gender Identity Not on file Sexual Orientation Not on file Last Filed Vital Signs Vital Sign Reading Time Taken Comments Blood Pressure 138/89 05/18/2024 1:18 PM BUNG DROPPER Pulse 85 05/18/2024 1:18 PM BUNG DROPPER Temperature 36.6 C (97.9 F) 05/18/2024 1:18 PM BUNG DROPPER Respiratory Rate 14 05/18/2024 1:18 PM BUNG DROPPER Oxygen Saturation 97% 05/18/2024 1:18 PM BUNG DROPPER Inhaled Oxygen Concentration - - Weight 74.8 kg (164 lb 12.8 oz) 05/18/2024 1:18 PM BUNG DROPPER Height 165.1 cm (5' 5 ) 05/18/2024 1:18 PM BUNG DROPPER Body Mass Index 27.42 05/18/2024 1:18 PM BUNG DROPPER Plan of Treatment Upcoming Encounters Date Type Department Care Team (Late st Contact Info) Description 07/25/2024 4:30 PM CDT Telephone Check Up [facility] Oncology and Hematology - [place] [address] [facility] [address] [place] [address] Jerry Rivera MD [address] [facility] [place] [address] Health Maintenance Due Date Last Done Comments Pre-Diabetes and Diabetes Screening 1965 HEPATITIS B VACCINES (1 of 3 - 19+ 3-dose series) 12/10/1986 HPV/Cotest (21-29) 12/10/1988 HPV/Cotest (30-65) 12/10/1997 COLORECTAL SCREENING 12/10/2012 Colorectal Cancer Screening 12/10/2012 FIT-DNA Q 3 years 12/10/2012 FIT/FOBT Q 1 year 12/10/2012 Flex Sig/CT Colonography Q 5 years 12/10/2012 ZOSTER VACCINE (1 of 2) 12/10/2017 INFLUENZA VACCINE (#1) 2023 Preventative Visit- Commercial 03/28/2024 0 11/01/2023, 10/21/2022, 10/20/2021, Additional history exists CERVICAL CANCER SCREENING 10/20/2024 PAP SMEAR 10/20/2024 10/20/2021 BREAST CANCER SCREENING 01/03/2025 01/04/20, 01/04/2024, 11/22/2022, Additional history exists DTAP/TDAP/TD VACCINES (4 - T d or Tdap) 08/08/2031 08/07/2021, 03/16/2011, 07/19/2005 Insurance [facility] [employer] [facility]
--- OUTSIDE RECORDS SUMMARY | 2024-07-03 10:18 | XMS_ITS | Clinical Summary ---
Author Organization [facility] Address [facility] [place] [address] Care Team Providers Care Brake Repairer Name Role Phone Ashley Smith DO Primary Care Provider [phone] Allergies Active Allergy Reactions Criticality Noted Date Comments Penicillins Hives,Rash,Other (see comment) Medium 0308/2005 Medications ELIQUIS 5 MG tablet 04/14/2024 Active metoprolol tartrate (LOPRESSOR) 25 MG tablet TAKE 1/2 A TABLET BY MOUTH TWICE DAILY. 04/14/2024 Active SUMAtriptan (IMITREX) 50 MG tablet TAKE 1 TABLET BY MOUTH AT ONSET OF HEADACHE. IF NO RELIEF MAY REPEAT 1 TABLET AFTER AT LEAST 2 HOURS. MAXIMUM 4 TABLETS IN 24 HOURS 02/13/2024 Active Active Problems Problem Noted Date Diagnosed Date Thrombophlebitis of internal jugular vein 2024 Encounter for weight loss counseling 10/10/2023 Fatty liver 10/03/2023 Metabolic syndrome 10/03/2023 Sleep apnea 10/03/2023 Abnormal liver function tests 05/17/2019 Menopausal syndrome (hot flashes) 03/29/2017 Migraines 04/18/2012 Encounters Date Type Department Care Team Description 05/02/2024 2:00 PM DYE HOUSE SUPERVISOR Office Visit [facility] [address] [address] Jair Man MD Neck Swelling 05/02/2024 Travel 05/02/2024 Abstract [facility], [address] [address] Elisha Manzo MA 05/01/2024 Scan [facility] [address] [place] [address] Scanned, Doc Pccl 05/01/2024 Orders Only [facility] [address], [facility] [address] [place] [address] Lisseth Petersen MA 04/27/2024 Telephone [facility] [address] [place] [address] Jair Man MD Information ([facility]) 04/24/2024 Scan [facility] [address] [place], [place] [address] Scanned, Doc Pccl 04/13/2024 Scan [facility] [address], [address] [place] [address] Scanned, Doc Pccl 04/11/2024 Scan [facility] [address] [facility] [address] [address], [facility] [address] [place] [address] Scanned, Doc Pccl 04/11/2024 Scan [facility] [address] [facility], [facility] [address] [place], [place] [address] Scanned, Doc Pccl 04/11/2024 Scan [facility] [address], [facility] [address] [place] [address] Scanned, Doc Pccl 04/11/2024 Scan [facility] [address] [facility], [facility] [address] [place], [place] [address] Scanned, Doc Pccl from Last 3 Months [...] Sex Assigned at Female 05/02/2024 1:54 PM DYE HOUSE SUPERVISOR Legal Sex Female 8:54 AM DYE HOUSE SUPERVISOR Gender Identity Not on file Sexual Orientation Not on file Last Filed Vital Signs Vital Sign Reading Time Taken Comments Blood Pressure 150/90 05/02/2024 2:20 PM DYE HOUSE SUPERVISOR Pulse 91 05/02/2024 2:20 PM DYE HOUSE SUPERVISOR Temperature - - Respiratory Rate - - Oxygen Saturation - - Inhaled Oxygen Concentration - - Weight 72.2 kg (159 lb 3.2 oz) 05/02/2024 2:20 P M DYE HOUSE SUPERVISOR Height 162.6 cm (5' 4 ) 05/02/2024 2:20 PM DYE HOUSE SUPERVISOR Body Mass Index 27.33 05/02/2024 2:20 PM DYE HOUSE SUPERVISOR Plan of Treatment Health Maintenance Due Date Last Done Comments Colorectal Cancer Screening Colonoscopy (10 Years) 1965 Annual Physical 12/10/1970 Hepatitis C 12/10/1985 Hepatitis B Vaccines (1 of 3 - 19+ 3-dose series) 12/10/1986 Cervical Cancer Screening Pap with HPV Testing (Age 30 to 64) Every 5 Years 12/10/1997 Zoster Vaccines (1 of 2) 12/10/2017 COVID-19 Vaccine ( season) 2023 Cervical Cancer Screening Pap Smear (Age [...] us Doc Pccl Scanned SCANNING Final Result [facility] * CT (04/11/2024) Only the most recent of2 resultswithin the time period is included. Anatomical Region Laterality Modality Other us Doc Pccl Scanned SCANNING Final Result * ECHO (04/11/2024) Anatomical Region Laterality Modality Other us Doc Pccl Scanned SCANNING Final Result from Last [address] [place] [address] [facility] Care Teams Brake Repairer Relationship Specialty Start Date End Date Ashley Smith DO [address] [place] [address] PCP - General FAMILY PRACTICE 05/02/24
--- OUTSIDE RECORDS SUMMARY | 2024-07-03 10:18 | XMS_ITS | Clinical Summary ---
Author Organization [facility] Address [address] [place] [address] Phone Care Team Providers Care World Renowned Chef And Restaurant Owner Name Role Phone Clinic, Pcp Unavailable Unavailable Ashley Smith DO Primary Care Provider [phone] Allergies Active Allergy Reactions Criticality Noted Date [...] year. Assessment & Plan (05/17/2019 3:15 PM FARM CREW MEMBER): Pelvic exam and breast exam done. Mammogram has been scheduled. Return in one year. Assessment & Plan (05/08/2018 11:11 PM FARM CREW MEMBER): Pap smear and breast exam done. GI list Return in one year. Assessment & Plan (03/29/2017 9:25 AM FARM CREW MEMBER): Pap smear and breast exam done. Schedule mammogram. Calcium and vitamin D discussed with patient. Rtn in one year. Menopausal syndrome (hot flashes) 03/29/2017 Assessment & Plan (08/26/2020 9:45 PM CDT): Discussed pros/cons of HRT. Discussed options. Will start Vivelle Dot 0.05 twice weekly and prometrium 100 qhs. Assessment & Plan (05/08/2018 11:12 PM FARM CREW MEMBER): Discussed options for treatment of hot flashes and night sweats. Assessment & Plan (03/29/2017 9:26 AM FARM CREW MEMBER): Discussed options for treatment including HT, effexor, paxil, clonidine, otc remedies and treatment with Ambien. Alise will try Remifemin first. Migraines 04/18/2012 Encounters Date Type Department Care Team Description 05/31/2024 3:15 PM FARM CREW MEMBER Office Visit [facility] Cardiology at [address] [place] [address] Samir Tierney MD Other chest pain (Primary Dx) 05/14/2024 2:30 PM FARM CREW MEMBER Ancillary Procedure [facility] [address] [place] [address] Other chest pain 05/11/2024 2:30 PM FARM CREW MEMBER Office Visit [facility] Cardiology at [address] [place] [address] Samir Tierney MD Other chest pain (Primary Dx); Pulmonary embolism without acute cor pulmonale, unspecified chronicity, unspecified pulmonary embolism type (HCC) 04/25/2024 Telephone [facility] [address], [place] [address] Ayse Payne MD provider call request from Last 3 Months Immunizations Immunization Administration Dates Next Due Tdap 08/07/2021 Surgical History Surgery Date Site/Laterality Comments TUBAL LIGATION Bilateral COLPOSCOPY W/ BIOPSY / CURETTAGE 03/28/2007 - 03/27/2008 AUGMENTATION MAMMOPLASTY Bilateral VAGINAL DELIVERY times three LITHOTRIPSY 11/26/2022 - 12/25/2022 COSMETIC SURGERY Medical History Medical History Date Comments Dysplasia of cervix, low grade (PRICILLA 1) 2007 times three Kidney stone 11/2022 Migraines Hypertension Family History Medical History Relation Name Comments Allergy (severe) Father Diabetic Diabetes Father Diabetic Hypertension Father Diabetic Melanoma Father Diabetic Allergy (severe) Mother Bees Hypertension Mother Bees Pneumonia Mother Bees cause of Arthritis Other Diabetes Other Diabetes Sister Diabetic Breast cancer Neg Hx Colon cancer Neg Hx Ovarian cancer Neg Hx Relation Name Status Comments Father Diabetic Mother Bees Other Sister Diabetic Social History Tobacco Use Types Packs/Day Years Used Date Smoking Tobacco: Never Cigarettes Smokeless Tobacco: Never Tobacco Cessation:Counseling Given: Not Answered Alcohol Use Standard Drinks/Week Comments Yes 0 (1 standard drink = 0.6 oz pur e alcohol) Comments No Sex and Gender Information Value Date Recorded Sex Assigned at Not on file Legal Sex Female 1:22 AM FARM CREW MEMBER Gender Identity Not on file Sexual Orientation Not on file Obstetrics History Para Term AB IAB SAB Ectopic Multiple Livin g Live Births 3 3 3 3 3 Date Outcome GA Total Labor Labor/2nd/3rd Weight Sex Type Anes PTL Dawn A1 A5 Name Clin Term Term Term Last Filed Vital Signs Vital Sign Reading Time Taken Comments Blood Pressure 136/88 05/31/2024 3:20 PM FARM CREW MEMBER Pulse 86 05/31/2024 3:20 PM FARM CREW MEMBER Temperature 36.8 C (98.2 F) 10/11/2019 8:43 AM CDT Respiratory Rate - - Oxygen Saturation 97% 05/31/2024 3:20 PM FARM CREW MEMBER Inhaled Oxygen Concentration - - Weight 74.4 kg (164 lb) 05/31/2024 3:20 PM FARM CREW MEMBER Height 162.6 cm (5' 4 ) 05/31/2024 3:20 PM FARM CREW MEMBER Body Mass Index 28.15 05/31/2024 3:20 PM FARM CREW MEMBER Plan of Treatment Health Maintenance Due Date Last Done Comments Colon Cancer Screening-Colonoscopy 1965 Depression Screening 1965 Hepatitis C Screening 1965 Hepatitis B Screening 12/10/1985 Pneumococcal vaccine <65 (1 of 2 - PCV) 12/10/1986 Zoster Vaccine (1 of 2) 12/10/2017 Cervical Cancer Screening 10/20/2022 10/20/2021, 03/2020 Influenza Vaccine (#1) 2023 Regular Well Visit/Exam 18-64 10/31/2024, 10/21/2022, 10/20/2021, Additional history exists Breast Cancer Screening-Mammogram 01/03/2025 01/04/2024, 11/22/2022, 11/13/2021, Additional history exists DTaP/Tdap/Td Vaccine (2 - Td or Tdap) 08/08/2031 08/07/2021 Procedures Procedure Name Priority Date/Time Associated Diagnosis Comments STRESS TEST ONLY TREADMILL Routine 05/14/2024 3:41 PM FARM CREW MEMBER Other chest pain POCT LIPID PANEL Routine 05/11/2024 2:22 PM FARM CREW MEMBER Other chest pain ELECTROCARDIOGRAM REPORT Routine 025 12:41 PM FARM CREW MEMBER Other chest pain SCREENING MAMMOGRAM BILATERAL W [...] * Stress Treadmill Test (05/14/2024 3:41 PM FARM CREW MEMBER) Anatomical Region Laterality Modality Nuclear Medicine Addenda Addendum by Brandi Butt MD on 05/15/2024 8:40 AM FARM CREW MEMBER TREADMILL STRESS TEST Patient Name: Alise Ellis [...] to complete this document. Brandi Butt MD us Samir Tierney MD CV STRESS PROCEDURES Italo duy Result - Final * POCT lipid panel (05/11/2024 2:22 PM FARM CREW MEMBER) Cholesterol, POC 187 mg/dL HDL, POC 74 mg/dL Triglycerides, POC 213 mg/dL LDL Cholesterol POC 71 mg/dL Chol/HDL Ratio, POC 2.5 Non-HDL Cholesterol, POC 113 mg/dL Cholesterol Total, POC 187 mg/dL Capillary blood 05/11/2024 2 :22 PM FARM CREW MEMBER Samir Tierney MD POINT OF CARE TEST ORDER JACQUELINE Final Result * Electrocardiogram Report (05/11/2024 12:41 PM FARM CREW MEMBER) Samir Tierney MD ECG ORDERABLES Final Re [...] CDT 10/22/2021 9:41 AM CDT Narrative PATHOLOGY [facility] - 10/26/2021 3:52 PM CDT EPIC results best viewed via link to PDF [address] [address] Tele: Marycarmen Gutierrez MD - Camp Housekeeper CYTOLOGY REPORT Note to Patients: This report [...] the details. Patient Name: ALISE ELLIS Address: [address] [place] [address] Gender: F : 1965 (Age: 55) Service: Location: [facility] #: [id number] Patient Type: [facility] SPECIMEN Taken: 10/20/2021 Reported: 10/26/2021 Physician(s): Ayse Payne M.D. FINAL DIAGNOSIS: Specimen Type: - ThinPrep Pap and HPV w/ reflex Genotyping Statement of Specimen Adequacy: Source: Cervical/Endocervical - Satisfactory for evaluation - Case screened using computer assisted imaging technology and manually re- screened by a fly winder. General Categorization: - Negative for intraepithelial lesion [...] LAB CYTOLOGY ORDERABLES F inal Result PATHOLOGY [facility] Laboratory Receiving [address] [place] [address] from Last 3 Months or Most Recently Relevant to Health Maintenance [place] [address] [address] [place] [address] [place] [address] [facility] Care Teams World Renowned Chef And Restaurant Owner Relationship Specialty Start Date End Date Ashley Smith DO PCP - General Family Medicine 10/25/22 Clinic, Pcp 04/13/17
--- OUTSIDE RECORDS SUMMARY | 2024-07-03 10:18 | XMS_ITS ---
Author Organization [facility] Address [address] [facility], [place] [address] Care Team Providers Care Director Safety Name Role Phone zzzzMigration, zzzzProvider Unavailable Unav ailable Allergies Allergen (clinical drug ingredient) Drug/Non Drug Allergy documented on EMR Reaction Allergy Type Onset Date Status Substance with penicillin structure and antibacterial mechanism of action (substance) Penicillins Unknown Drug Allergy 05/31/2005 Active [place]ASON [place]IT [place] Medication SIG (Take, Route, Fr equency, Duration) Notes Start Date End Date Status Imitrex 100 MG take 1 tablet by ora l route at onset of headache, 2nd pill to be taken 2hours later if needed Oral 1 03/26/2011 Ac tive Encounters Encounter Location Date Provider Diagnosis [facility] [address] [facility] [address], [place] [address] 01/16/2023 zzzzProvider zzzzMigration Plan Of Treatment No Information Progress Notes * Luci ELLIS LDOB:[birth year] (58 yo F)Acc No.[id number]:01/16/2023 Patient: Luci WOO :1965 A ge:57 Y S ex:Female Address:[facility] [address] , [place], [address] Subjective: * Chief Complaints: * E MR-Sotero [...] Occupation :: City Employee :: note : [employer] , Substance Use :: Alcohol - No [...] Generated for Bao baltazar/Sky/Rosalino on: 0 07/03/2024 10:17 AM CDT
== END 2024-07-03 09:24 | disposition home or self-care (01) ==
LOC: ANHIMG 09:28
PROVIDERS: PCP Family Medicine; Visit Provider Urology
DX: N20.0 Calculus of kidney (principal)
CPT/HCPCS: 74018

== ENCOUNTER 2024-07-09 08:51 | Outpatient (CLI) | payer BC, SELFPAY ==
--- NOTE | ~2024-07-09 | CT_ITS ---
Clinical Indication: Shortness of breath CT Scan of the Neck and Chest with Contrast: Technique: Contiguous sections were acquired throughout the neck and chest after intravenous administ ration of 75 cc of Omnipaque 350. Dose reduction technique was used on this scan by utilizing automat ed exposure control and iterative reconstruction technique. The dose-length product (DLP) was 673.52 mGy-cm. Findings: No soft tissue mass or lymphadenopathy evident in the neck. Parapharyngeal fat preserved bi laterally. Parotid and submandibular glands are unremarkable. Aerodigestive tract appears unremarkabl e. Vascular structures are unremarkable. There is no evidence of any significant mediastinal, hilar or axillary lymphadenopathy. There is no f illing defect in the pulmonary arterial tree to suggest pulmonary embolus. There is no evidence of ao rtic dissection or aneurysm. There is no evidence of pleural or pericardial effusion. The lungs are clear. No pulmonary nodules or infiltrates are noted. Images through the upper abdomen reveal no abnormalities. Impression: No significant abnormality seen. Reviewed, dictated and finalized at [facility]. Impression: No significant abnormality seen.
--- OUTSIDE RECORDS SUMMARY | 2024-07-09 09:21 | XMS_ITS | Encounter Summary ---
Author Organization [facility] Address [facility] [place] [address] Care Team Providers Care E Learning Coordinator Name Role Phone Ashley Smith DO Primary Care Provider Encounter Details Date Type Department Care Team (Late st Contact Info) Description 05/02/2024 Abstract [facility] [address] Elisha Manzo MA Social History Tobacco Use Types Packs/Day Years Used Date Smoking Tobacco: Never Smokeless Tobacco: Never Comments Unknown Sex and Gender Information Value Date Recorded Sex Assigned at Female 05/02/2024 1:54 PM TEXTILES AND CLOTHING TEACHER Legal Sex Female 8:54 AM TEXTILES AND CLOTHING TEACHER Gender Identity Not on file Sexual Orientation [...] on filedocumented in this encounter Care Teams E Learning Coordinator Relationship Specialty Start Date End Date Ashley Smith DO [address] [place] [address] PCP - General FAMILY PRACTICE 05/02/24 documented as of this encounter
--- OUTSIDE RECORDS SUMMARY | 2024-07-09 09:21 | XMS_ITS | Clinical Summary ---
Author Organization [facility] Address [address] [place] [address] Care Team Providers Care Loop Drier Operator Name Role Phone RodriguezMurali DO Primary Care Provider [phone] Ayse Payne MD Unavailable [phone] Source Comments [facility],non-owned Affiliates and Associated Physician Practices is amultiple site organization consisting of ambulatory clinics and hospital sitesin [place], [place], [place] and [place]. This disclosure is being madepursuant to the Care Everywhere program and may not contain all information available regarding this patient. Last updated 17.[facility] Allergies Active Allergy Reactions Criticality Noted Date Comments Penicillins Urticaria 04/18/2012 Medications * Be aware that medications may not be up to date on this document. Alwaysverify current medications with the patient. 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
--- OUTSIDE RECORDS SUMMARY | 2024-07-09 09:21 | XMS_ITS | Clinical Summary ---
Author Organization [facility] Address [address] [place] [address] Phone Care Team Providers Care Transit Mixer Driver Name Role Phone Clinic, Pcp Unavailable Unavailable Ashley Smith DO Primary Care Provider [phone] Allergies Active Allergy Reactions Criticality Noted Date [...] year. Assessment & Plan (05/17/2019 3:15 PM NEEDLE LOOM OPERATOR): Pelvic exam and breast exam done. Mammogram has been scheduled. Return in one year. Assessment & Plan (05/08/2018 11:11 PM NEEDLE LOOM OPERATOR): Pap smear and breast exam done. GI list Return in one year. Assessment & Plan (03/29/2017 9:25 AM NEEDLE LOOM OPERATOR): Pap smear and breast exam done. Schedule mammogram. Calcium and vitamin D discussed with patient. Rtn in one year. Menopausal syndrome (hot flashes) 03/29/2017 Assessment & Plan (08/26/2020 9:45 PM CDT): Discussed pros/cons of HRT. Discussed options. Will start Vivelle Dot 0.05 twice weekly and prometrium 100 qhs. Assessment & Plan (05/08/2018 11:12 PM NEEDLE LOOM OPERATOR): Discussed options for treatment of hot flashes and night sweats. Assessment & Plan (03/29/2017 9:26 AM NEEDLE LOOM OPERATOR): Discussed options for treatment including HT, effexor, paxil, clonidine, otc remedies and treatment with Ambien. Alise will try Remifemin first. Migraines 04/18/2012 Encounters Date Type Department Care Team Description 05/31/2024 3:15 PM NEEDLE LOOM OPERATOR Office Visit [facility] Cardiology at [address] [place] [address] Samir Tierney MD Other chest pain (Primary Dx) 05/14/2024 2:30 PM NEEDLE LOOM OPERATOR Ancillary Procedure [facility] Cardiology [address] [facility] [address] [place] [address] Other chest pain 05/11/2024 2:30 PM NEEDLE LOOM OPERATOR Office Visit [facility] Cardiology at [address] [place] [address] Samir Tierney MD Other chest pain (Primary Dx); Pulmonary embolism without acute cor pulmonale, unspecified chronicity, unspecified pulmonary embolism type (HCC) 04/25/2024 Telephone [facility] Care [address] [facility] [address] [address] Ayse Payne MD provider call [...] on file Legal Sex Female 1:22 AM NEEDLE LOOM OPERATOR Gender Identity Not on file Sexual Orientation Not on file Obstetrics History Para Term AB IAB SAB Ectopic Multiple Livin g Live Births 3 3 3 3 3 Date Outcome GA Total Labor Labor/2nd/3rd Weight Sex Type Anes PTL Dawn A1 A5 Name Clin Term Term Term Last Filed Vital Signs Vital Sign Reading Time Taken Comments Blood Pressure 136/88 05/31/2024 3:20 PM NEEDLE LOOM OPERATOR Pulse 86 05/31/2024 3:20 PM NEEDLE LOOM OPERATOR Temperature 36.8 C (98.2 F) 10/11/2019 8:43 AM CDT Respiratory Rate - - Oxygen Saturation 97% 05/31/2024 3:20 PM NEEDLE LOOM OPERATOR Inhaled Oxygen Concentration - - Weight 74.4 kg (164 lb) 05/31/2024 3:20 PM NEEDLE LOOM OPERATOR Height 162.6 cm (5' 4 ) 05/31/2024 3:20 PM NEEDLE LOOM OPERATOR Body Mass Index 28.15 05/31/2024 3:20 PM NEEDLE LOOM OPERATOR Plan of Treatment Health Maintenance Due Date [...] TEST ONLY TREADMILL Routine 05/14/2024 3:41 PM NEEDLE LOOM OPERATOR Other chest pain POCT LIPID PANEL Routine 05/11/2024 2:22 PM NEEDLE LOOM OPERATOR Other chest pain ELECTROCARDIOGRAM REPORT Routine 025 12:41 PM NEEDLE LOOM OPERATOR Other chest pain SCREENING MAMMOGRAM BILATERAL W [...] * Stress Treadmill Test (05/14/2024 3:41 PM NEEDLE LOOM OPERATOR) Anatomical Region Laterality Modality Nuclear Medicine Addenda Addendum by Brandi Butt MD on 05/15/2024 8:40 AM NEEDLE LOOM OPERATOR TREADMILL STRESS TEST Patient Name: Alise Ellis [...] * POCT lipid panel (05/11/2024 2:22 PM NEEDLE LOOM OPERATOR) Cholesterol, POC 187 mg/dL HDL, POC 74 mg/dL Triglycerides, POC 213 mg/dL LDL Cholesterol POC 71 mg/dL Chol/HDL Ratio, POC 2.5 Non-HDL Cholesterol, POC 113 mg/dL Cholesterol Total, POC 187 mg/dL Capillary blood 05/11/2024 2 :22 PM NEEDLE LOOM OPERATOR Samir Tierney MD POINT OF CARE TEST ORDER JACQUELINE Final Result * Electrocardiogram Report (05/11/2024 12:41 PM NEEDLE LOOM OPERATOR) Samir Tierney MD ECG ORDERABLES Final Re [...] CDT 10/22/2021 9:41 AM CDT Narrative PATHOLOGY [facility] - 10/26/2021 3:52 PM CDT EPIC results best viewed via link to PDF [address] [address] Tele: Marycarmen Gutierrez MD - Medical Referral Coordinator CYTOLOGY REPORT Note to Patients: This report [...] the details. Patient Name: ALISE ELLIS Address: [address] [place] [address] Gender: F : 1965 (Age: 55) Service: Location: [facility] #: [id number] Patient Type: [facility] SPECIMEN Taken: 10/20/2021 Reported: 10/26/2021 Physician(s): Ayse Payne M.D. FINAL DIAGNOSIS: Specimen Type: - ThinPrep Pap and HPV w/ reflex Genotyping Statement of Specimen Adequacy: Source: Cervical/Endocervical - Satisfactory for evaluation - Case screened using computer assisted imaging technology and manually re- screened by a v belt mold assembler and curer. General Categorization: - Negative for intraepithelial lesion [...] LAB CYTOLOGY ORDERABLES F inal Result PATHOLOGY [facility] Laboratory Receiving [address] [place] [address] from Last 3 Months or Most Recently Relevant to Health Maintenance [place] [address] [employer] [place] [address] [place] [place] [address] [place] [place] [address] [employer] ACCESS CHOICE Care Teams Transit Mixer Driver Relationship Specialty Start Date End Date Ashley Smith DO PCP - General Family Medicine 10/25/22 Clinic, Pcp 04/13/17
--- OUTSIDE RECORDS SUMMARY | 2024-07-09 09:21 | XMS_ITS | Clinical Summary ---
Author Organization [facility] Smita [facility] Address [address] [place] [address] Care Team Providers Care Mechatronics Technologist Name Role Phone Unavailable Primary Care Provider [...] STL ABSTRACTION Provider, Abstract 05/18/2024 1:30 PM DERRICK MAN Office Visit [facility] Oncology and Hematology [facility] [address] [place] [address] Jerry Rivera MD SOB (shortness of breath) (Primary Dx) 05/11/2024 Abstract [facility] Oncology [facility] [address] [place] [address] Jerry Rivera MD from Last [...] on file Legal Sex Female 11:14 AM DERRICK MAN Gender Identity Not on file Sexual Orientation Not on file Last Filed Vital Signs Vital Sign Reading Time Taken Comments Blood Pressure 138/89 05/18/2024 1:18 PM DERRICK MAN Pulse 85 05/18/2024 1:18 PM DERRICK MAN Temperature 36.6 C (97.9 F) 05/18/2024 1:18 PM DERRICK MAN Respiratory Rate 14 05/18/2024 1:18 PM DERRICK MAN Oxygen Saturation 97% 05/18/2024 1:18 PM DERRICK MAN Inhaled Oxygen Concentration - - Weight 74.8 kg (164 lb 12.8 oz) 05/18/2024 1:18 PM DERRICK MAN Height 165.1 cm (5' 5 ) 05/18/2024 1:18 PM DERRICK MAN Body Mass Index 27.42 05/18/2024 1:18 PM DERRICK MAN Plan of Treatment Upcoming Encounters Date Type Department Care Team (Late st Contact Info) Description 07/25/2024 4:30 PM CDT Telephone Check Up [facility] Oncology and Hematology - [place] [address] [facility] [address] [place] [address] Jerry Rivera MD [address] [facility] [address] [place] [address] Health Maintenance Due Date Last [...] of 2) 12/10/2017 INFLUENZA VACCINE (#1) 2023 CERVICAL CANCER SCREENING 10/20/2024 PAP SMEAR 10/20/2024 10/20/2021 BREAST CANCER SCREENING 01/03/2025 01/04/20, 01/04/2024, 11/22/2022, Additional history exists DTAP/TDAP/TD VACCINES (4 - T d or Tdap) 08/08/2031 08/07/2021, 03/16/2011, 07/19/2005 [place] [address] [facility] BLUE ACCESS CHOICE [facility]
--- OUTSIDE RECORDS SUMMARY | 2024-07-09 09:21 | XMS_ITS ---
Author Organization [facility] Address [address] [facility] [address] [place] [address] Care Team Providers Care Feed Elevator Worker Name Role Phone zzzzMigration, zzzzProvider Unavailable Unav ailable Allergies Allergen (clinical drug ingredient) Drug/Non Drug Allergy documented on EMR Reaction Allergy Type Onset Date Status Substance with penicillin structure and antibacterial mechanism of action (substance) Penicillins Unknown Drug Allergy 05/31/2005 Active REASON FOR VISIT [facility] Medications Medication SIG (Take, Route, Fr equency, Duration) Notes Start Date End Date Status Imitrex 100 MG take 1 tablet by ora l route at onset of headache, 2nd pill to be taken 2hours later if needed Oral 1 03/26/2011 Ac tive Encounters Encounter Location Date Provider Diagnosis [facility] [address] [facility] [address] [place] [address] 01/16/2023 zzzzProvider zzzzMigration Plan Of Treatment No Information Progress Notes * Luci ELLIS LDOB:[birth year] (58 yo F)Acc No.[id number]:01/16/2023 Patient: Luci WOO :1965 A ge:57 Y S ex:Female Address:[facility] [address] , [place], [address] Subjective: * Chief Complaints: * E MR-Sotero [...] Occupation :: City Employee :: note : [employer] , Substance Use :: Alcohol - No [...] Date: Generated for Bao baltazar/Sky/Rosalino on: 0 07/09/2024 09:21 AM CDT
--- OUTSIDE RECORDS SUMMARY | 2024-07-09 09:21 | XMS_ITS | Referral Summary ---
Author Organization [facility] Krish [facility] C Address [address] [place] [address] Phone Care Team Providers Care Groover Runner Name Role Phone Clinic, Pcp Unavailable Unavailable Ashley Smith DO Primary Care Provider [phone] Encounters Date Type Department Care Team Description 05/31/2024 3:15 PM SHOP TAILOR Office Visit [facility] Cardiology at [address] [place] [address] Samir Tierney MD Other chest pain (Primary Dx) 05/14/2024 2:30 PM SHOP TAILOR Ancillary Procedure [facility] Medical [facility] Cardiology [address] [facility] [address] [place] [address] Other chest pain 05/11/2024 2:30 PM SHOP TAILOR Office Visit [facility] Medical [facility] Cardiology at [address] [place] [address] Samir Tierney MD Other chest pain (Primary Dx); Pulmonary embolism without acute cor pulmonale, unspecified chronicity, unspecified pulmonary embolism type (HCC) 04/25/2024 Telephone [facility] Women's Care [address] [facility] [address], [place] [address] Ayse Payne MD provider call [...] year. Assessment & Plan (05/17/2019 3:15 PM SHOP TAILOR): Pelvic exam and breast exam done. Mammogram has been scheduled. Return in one year. Assessment & Plan (05/08/2018 11:11 PM SHOP TAILOR): Pap smear and breast exam done. GI list Return in one year. Assessment & Plan (03/29/2017 9:25 AM SHOP TAILOR): Pap smear and breast exam done. Schedule mammogram. Calcium and vitamin D discussed with patient. Rtn in one year. Menopausal syndrome (hot flashes) 03/29/2017 Assessment & Plan (08/26/2020 9:45 PM CDT): Discussed pros/cons of HRT. Discussed options. Will start Vivelle Dot 0.05 twice weekly and prometrium 100 qhs. Assessment & Plan (05/08/2018 11:12 PM SHOP TAILOR): Discussed options for treatment of hot flashes and night sweats. Assessment & Plan (03/29/2017 9:26 AM SHOP TAILOR): Discussed options for treatment including HT, effexor, [...] on file Legal Sex Female 1:22 AM SHOP TAILOR Gender Identity Not on file Sexual Orientation Not on file Last Filed Vital Signs Vital Sign Reading Time Taken Comments Blood Pressure 136/88 05/31/2024 3:20 PM SHOP TAILOR Pulse 86 05/31/2024 3:20 PM SHOP TAILOR Temperature 36.8 C (98.2 F) 10/11/2019 8:43 AM CDT Respiratory Rate - - Oxygen Saturation 97% 05/31/2024 3:20 PM SHOP TAILOR Inhaled Oxygen Concentration - - Weight 74.4 kg (164 lb) 05/31/2024 3:20 PM SHOP TAILOR Height 162.6 cm (5' 4 ) 05/31/2024 3:20 PM SHOP TAILOR Body Mass Index 28.15 05/31/2024 3:20 PM SHOP TAILOR Plan of Treatment Not on file Procedures Procedure Name Priority Date/Time Associated Diagnosis Comments STRESS TEST ONLY TREADMILL Routine 05/14/2024 3:41 PM SHOP TAILOR Other chest pain POCT LIPID PANEL Routine 05/11/2024 2:22 PM SHOP TAILOR Other chest pain ELECTROCARDIOGRAM REPORT Routine 025 12:41 PM SHOP TAILOR Other chest pain SCREENING MAMMOGRAM BILATERAL W [...] * Stress Treadmill Test (05/14/2024 3:41 PM SHOP TAILOR) Anatomical Region Laterality Modality Nuclear Medicine Addenda Addendum by Brandi Butt MD on 05/15/2024 8:40 AM SHOP TAILOR TREADMILL STRESS TEST Patient Name: Alise Ellis [...] * POCT lipid panel (05/11/2024 2:22 PM SHOP TAILOR) Cholesterol, POC 187 mg/dL HDL, POC 74 mg/dL Triglycerides, POC 213 mg/dL LDL Cholesterol POC 71 mg/dL Chol/HDL Ratio, POC 2.5 Non-HDL Cholesterol, POC 113 mg/dL Cholesterol Total, POC 187 mg/dL Capillary blood 05/11/2024 2 :22 PM SHOP TAILOR Samir Tierney MD POINT OF CARE TEST ORDER JACQUELINE Final Result * Electrocardiogram Report (05/11/2024 12:41 PM SHOP TAILOR) Samir Tierney MD ECG ORDERABLES Final Re [...] CDT 10/22/2021 9:41 AM CDT Narrative PATHOLOGY [facility] - 10/26/2021 3:52 PM CDT [facility] results best viewed via link to PDF [address] [address] Tele: Marycarmen Gutierrez MD - Applique Cutter CYTOLOGY REPORT Note to Patients: This report [...] the details. Patient Name: ALISE ELLIS Address: [address] [place] [address] Gender: F : 1965 (Age: 55) Service: Location: N : [id number] [facility] #: [id number] Patient Type: [facility] SPECIMEN Taken: 10/20/2021 Reported: 10/26/2021 Physician(s): Ayse Payne M.D. FINAL DIAGNOSIS: Specimen Type: - ThinPrep Pap and HPV w/ reflex Genotyping Statement of Specimen Adequacy: Source: Cervical/Endocervical - Satisfactory for evaluation - Case screened using computer assisted imaging technology and manually re- screened by a domestic violence advocate. General Categorization: - Negative for intraepithelial lesion or malignancy Interpretation: - Specimen sent for HPV testing per physician order. [facility]/10/26/2021 15:52Jahaira Hawkins M.S., EULALIA (ASCP) Report [...] LAB CYTOLOGY ORDERABLES F inal Result PATHOLOGY [facility] Laboratory Receiving [address] [place] [address] from Last 3 Months or Most Recently Relevant to Health Maintenance Insurance [place] [address] [place] [address] [place] [address] [place] [address] [employer] ACCESS CHOICE Care Teams Groover Runner Relationship Specialty Start Date End Date Ashley Smith DO PCP - General Family Medicine 10/25/22 Clinic, Pcp 04/13/17
--- OUTSIDE RECORDS SUMMARY | 2024-07-09 09:21 | XMS_ITS | Clinical Summary ---
Author Organization [facility] Address [facility] [place] [address] Care Team Providers Care Supervisor Steno Pool Name Role Phone Ashley Smith DO Primary Care Provider [phone] Allergies Active Allergy Reactions Criticality Noted Date [...] Department Care Team Description 05/02/2024 2:00 PM AUTOMATIC MAINTAINER Office Visit [facility] [address] [address] Jair Man MD Neck Swelling 05/02/2024 Travel 05/02/2024 Abstract [facility], [address] [address] Elisha Manzo MA 05/01/2024 Scan [facility] [address] [place] [address] Scanned, Doc Pccl 05/01/2024 Orders Only [facility], [facility] [address] [place] [address] Lisseth Petersen MA 04/27/2024 Telephone [facility] [place] [address] Jair Man MD Information ([facility]) 04/24/2024 Scan [facility] [place], [place] [address] Scanned, Doc Pccl 04/13/2024 Scan [facility] [address] [place] [address] Scanned, Doc Pccl 04/11/2024 Scan [facility] [address] [facility] [address], [facility] [address] [place] [address] Scanned, Doc Pccl 04/11/2024 Scan [facility] [address] [facility], [facility] [address] [place], [place] [address] Scanned, Doc Pccl 04/11/2024 Scan [facility] [address], [facility] [address] [place] [address] Scanned, Doc Pccl 04/11/2024 Scan [facility] [address] [facility], [facility] [address] [place], [place] [address] Scanned, Doc Pccl from Last 3 Months Immunizations Immunization Administration Dates Next Due Tdap (Generic) 08/07/2021 Family History Medical History Relation Comments Diabetes Father Heart Disease Father Hypertension Father Hypertension Mother Relation Status Comments Father Mother Social History Tobacco Use Types Packs/Day Years Used Date Smoking Tobacco: Never Smokeless Tobacco: Never Comments Unknown Sex and Gender Information Value Date Recorded Sex Assigned at Female 05/02/2024 1:54 PM AUTOMATIC MAINTAINER Legal Sex Female 8:54 AM AUTOMATIC MAINTAINER Gender Identity Not on file Sexual Orientation Not on file Last Filed Vital Signs Vital Sign Reading Time Taken Comments Blood Pressure 150/90 05/02/2024 2:20 PM AUTOMATIC MAINTAINER Pulse 91 05/02/2024 2:20 PM AUTOMATIC MAINTAINER Temperature - - Respiratory Rate - - Oxygen Saturation - - Inhaled Oxygen Concentration - - Weight 72.2 kg (159 lb 3.2 oz) 05/02/2024 2:20 P M AUTOMATIC MAINTAINER Height 162.6 cm (5' 4 ) 05/02/2024 2:20 PM AUTOMATIC MAINTAINER Body Mass Index 27.33 05/02/2024 2:20 PM AUTOMATIC MAINTAINER Plan of Treatment Health Maintenance Due Date [...] 5 Years) and At-Risk Patients (6 to 49 Years) Aged Out No longer eligible based [...] from Last [address] [id number] [facility] Care Teams Supervisor Steno Pool Relationship Specialty Start Date End Date Ashley Smith DO [address] [place] [address] PCP - General FAMILY PRACTICE 05/02/24
--- OUTSIDE RECORDS SUMMARY | 2024-07-09 09:21 | XMS_ITS | Patient Health Record ---
Author Organization [facility] Address [address] [facility] [address] [place] [address] Support Name Relationship Address Phone Drissapoorva Luci [...] Tdap Unknown 07/19/2005 Administered migrated Leg Patid= [id number] Date=07/19/2005 Vac= Tdap Tdap IM Intramuscular 03/16/2011 Administered Plan Of Treatment No Information Insurance Providers Payer Name Payer Address Payer Phone Subscriber Number Group Number Insured Name Patient Relationship to Insured Coverage Start Date Coverage End Date [facility] [employer] [address] [address] [place] [address] [id number] Luci Ellis Self - patient is the insured 1
[2024-07-09 09:23] LABS: Estimated Glomerular Filt Rate 57
== END 2024-07-09 08:52 | disposition home or self-care (01) ==
PROVIDERS: PCP Family Medicine; Visit Provider Internal Medicine Hematology & Oncology
DX: R06.02 Shortness of breath (principal)
CPT/HCPCS: 70491; 71260; Q9967

== ENCOUNTER 2024-07-27 09:02 | Outpatient (CLI) | payer BC, SELFPAY ==
--- NOTE | ~2024-07-27 | CT_ITS ---
Non-contrast CT scan of the Abdomen and Pelvis Clinical indication: Kidney stones Technique: 2.5 mm axial scans were obtained through the abdomen and pelvis without intravenous or or al contrast. Dose reduction technique was used on this scan by utilizing automated exposure control a nd iterative reconstruction technique. The dose-length product (DLP) was 198.60 mGy-cm. COMPARISON: 04/14/2024 Findings: Images through the lung bases reveal no abnormalities. Tiny punctate nonobstructing renal stones noted, best seen on coronal images. No ureteral stone or hy dronephrosis. The liver, spleen, pancreas, gallbladder, and adrenals appear normal. There is no aortic aneurysm. There is no evidence of bowel obstruction. Images through the pelvis were performed. There is no evidence of ascites or lymphadenopathy. Urinary bladder unremarkable. No pelvic mass seen. No ascites. Impression: Tiny punctate nonobstructing renal stones, as detailed above. Reviewed, dictated and finalized at [facility]. Impression: Tiny punctate nonobstructing renal stones, as detailed above.
[2024-07-27 10:04] LABS: Hematocrit 41.6 % (37.0-47.0); Hemoglobin 13.2 g/dL (12.0-15.0); Mean Corpuscular HGB Conc 31.7 g/dl (32-36); Mean Corpuscular Hemoglobin 30.5 pg (26-34); Mean Corpuscular Volume 96.1 fl (80-100); Mean Platelet Volume 8.4 fl (7.4-10.4); Platelet Count Result 281 k/mm3 (150-375); Red Blood Count 4.33 M/mm3 (4.2-5.4); Red Cell Distribution Width 12.4 % (11.5-14.5); White Blood Count 6.5 K/mm3 (4.5-10.0)
[2024-07-27 10:15] LABS: Alanine Aminotransferase 28 U/L (6-35); Albumin Level 4.3 g/dL (3.5-5.1); Alkaline Phosphatase 58 U/L (38-126); Anion Gap 8 mmol/L (4-12); Aspartate Amino Transferase 42 U/L (14-36); Bilirubin,Total 0.5 mg/dL (0.2-1.3); Blood Urea Nitrogen 23 mg/dL (7-17); Calcium 8.9 mg/dL (8.4-10.2); Carbon Dioxide 28 mmol/L (22-30); Chloride 104 mmol/L (98-107); Cholesterol 200 mg/dL (0-200); Estimated Glomerular Filt Rate > 60; Glucose 92 mg/dL (65-110); HDL Direct 81 mg/dL; Potassium 4.3 mmol/L (3.4-5.0); Sodium 140 mmol/L (137-145); Triglycerides 48 mg/dL (<150)
[2024-07-27 10:25] LABS: LDL Cholesterol Direct 68 mg/dL
[2024-07-27 12:14] LABS: Hemoglobin A1C 5.4 % (<5.7)
--- OUTSIDE RECORDS SUMMARY | 2024-07-28 11:23 | XMS_ITS | Clinical Summary ---
Author Organization [facility] S[facility]a [facility] Address [address] [place] [address] Care Team Providers Care Family Resource Coordinator Name Role Phone Unavailable Primary Care Provider [...] Encounters Date Type Department Care Team Description 07/25/2024 4:30 PM CDT Telephone Check Up [facility] Oncology and Hematology [facility] [address] [place] [address] Jerry Rivera MD SOB (shortness of breath) (Primary Dx); Secondary hypercoagulable state 07/09/2024 Orders Only [facility] Oncology [facility] [address] [place] [id number] Jerry Rivera MD 06/13/2024 External Device Data STL ABSTRACTION Provider, [...] STL ABSTRACTION Provider, Abstract 05/18/2024 1:30 PM VP INTEGRITY Office Visit [facility] Oncology and Hematology - [place] [address] [facility] [address] [place] [address] Jerry Rivera MD SOB (shortness of breath) (Primary Dx) 05/11/2024 Abstract [facility] Oncology and Hematology - [place] [address] [place] [address] Jerry Rivera MD from Last [...] on file Legal Sex Female 11:14 AM VP INTEGRITY Gender Identity Not on file Sexual Orientation Not on file Last Filed Vital Signs Vital Sign Reading Time Taken Comments Blood Pressure 138/89 05/18/2024 1:18 PM VP INTEGRITY Pulse 85 05/18/2024 1:18 PM VP INTEGRITY Temperature 36.6 C (97.9 F) 05/18/2024 1:18 PM VP INTEGRITY Respiratory Rate 14 05/18/2024 1:18 PM VP INTEGRITY Oxygen Saturation 97% 05/18/2024 1:18 PM VP INTEGRITY Inhaled Oxygen Concentration - - Weight 74.8 kg (164 lb 12.8 oz) 05/18/2024 1:18 PM VP INTEGRITY Height 165.1 cm (5' 5 ) 05/18/2024 1:18 PM VP INTEGRITY Body Mass Index 27.42 05/18/2024 1:18 PM VP INTEGRITY Plan of Treatment Upcoming Encounters Date Type Department Care Team (Late st Contact Info) Description 08/13/2024 4:30 PM CDT Telephone Check Up [facility] Oncology and Hematology - [place] [address] [place] [address] Jerry Rivera MD [address] [place] [address] Health Maintenance Due Date Last [...] SMEAR 10/20/2024 10/20/2021 BREAST CANCER SCREENING 01/03/2025 01/04/20 24, 01/04/2024, 11/22/2022, Additional history exists DTAP/TDAP/TD VACCINES (4 - T d or Tdap) 08/08/2031 08/07/2021, 03/16/2011, 07/19/2005 Procedures Procedure Name Priority Date/Time Associated Diagnosis Comments CT SOFT TISSUE NECK CHEST W CONT Routine 07/09/2024 1:51 PM CDT from Last 3 Months Results * CT SOFT TISSUE NECK CHEST W CONT (07/09/2024 1:51 PM CDT) Anatomical Region Laterality Modality Neck Computed Tomogra phy us Jerry Rivera MD CT ORDERABLES Final Result from Last 3 Months Insurance [facility]
--- OUTSIDE RECORDS SUMMARY | 2024-07-28 11:24 | XMS_ITS | Encounter Summary ---
Author Organization [facility] Address [facility] [place] [address] Care Team Providers Care Bow String Maker Name Role Phone Ashley Smith DO Primary Care Provider [phone] Encounter Details Date Type Department Care Team (Late st Contact Info) Description 05/02/2024 Abstract [facility] [address] Elisha Manzo MA Social History Tobacco Use Types Packs/Day Years Used Date Smoking Tobacco: Never Smokeless Tobacco: Never Comments Unknown Sex and Gender Information Value Date Recorded Sex Assigned at Female 05/02/2024 1:54 PM SLAB MILLER OPERATOR Legal Sex Female 8:54 AM SLAB MILLER OPERATOR Gender Identity Not on file Sexual [...] on filedocumented in this encounter Care Teams Bow String Maker Relationship Specialty Start Date End Date Ahsley Smith DO [address] [place] [address] PCP - General FAMILY PRACTICE 05/02/24 documented as of this encounter
--- OUTSIDE RECORDS SUMMARY | 2024-07-28 11:24 | XMS_ITS | Referral Summary ---
Author Organization [facility] Address [address] [place] [address] Phone Care Team Providers Care Auditing Manager Name Role Phone Clinic, Pcp Unavailable Unavailable Ashley Smith DO Primary Care Provider [phone] Encounters Date Type Department Care Team Description 05/31/2024 3:15 PM HEAT TREATER HEAD Office Visit [facility] Cardiology at [address] [place] [address] Samir Tierney MD Other chest pain (Primary Dx) 05/14/2024 2:30 PM HEAT TREATER HEAD Ancillary Procedure [facility] Cardiology [address] [facility] [address] [place] [address] Other chest pain 05/11/2024 2:30 PM HEAT TREATER HEAD Office Visit [facility] Cardiology at [address] [place] [address] Samir Tierney MD Other chest pain (Primary Dx); Pulmonary embolism without acute cor pulmonale, unspecified chronicity, unspecified pulmonary embolism type (HCC) from Last 3 Months Allergies Active Allergy [...] year. Assessment & Plan (05/17/2019 3:15 PM HEAT TREATER HEAD): Pelvic exam and breast exam done. Mammogram has been scheduled. Return in one year. Assessment & Plan (05/08/2018 11:11 PM HEAT TREATER HEAD): Pap smear and breast exam done. GI list Return in one year. Assessment & Plan (03/29/2017 9:25 AM HEAT TREATER HEAD): Pap smear and breast exam done. Schedule mammogram. Calcium and vitamin D discussed with patient. Rtn in one year. Menopausal syndrome (hot flashes) 03/29/2017 Assessment & Plan (08/26/2020 9:45 PM CDT): Discussed pros/cons of HRT. Discussed options. Will start Vivelle Dot 0.05 twice weekly and prometrium 100 qhs. Assessment & Plan (05/08/2018 11:12 PM HEAT TREATER HEAD): Discussed options for treatment of hot flashes and night sweats. Assessment & Plan (03/29/2017 9:26 AM HEAT TREATER HEAD): Discussed options for treatment including HT, effexor, [...] on file Legal Sex Female 1:22 AM HEAT TREATER HEAD Gender Identity Not on file Sexual Orientation Not on file Last Filed Vital Signs Vital Sign Reading Time Taken Comments Blood Pressure 136/88 05/31/2024 3:20 PM HEAT TREATER HEAD Pulse 86 05/31/2024 3:20 PM HEAT TREATER HEAD Temperature 36.8 C (98.2 F) 10/11/2019 8:43 AM CDT Respiratory Rate - - Oxygen Saturation 97% 05/31/2024 3:20 PM HEAT TREATER HEAD Inhaled Oxygen Concentration - - Weight 74.4 kg (164 lb) 05/31/2024 3:20 PM HEAT TREATER HEAD Height 162.6 cm (5' 4 ) 05/31/2024 3:20 PM HEAT TREATER HEAD Body Mass Index 28.15 05/31/2024 3:20 PM HEAT TREATER HEAD Plan of Treatment Not on file Procedures Procedure Name Priority Date/Time Associated Diagnosis Comments STRESS TEST ONLY TREADMILL Routine 05/14/2024 3:41 PM HEAT TREATER HEAD Other chest pain POCT LIPID PANEL Routine 05/11/2024 2:22 PM HEAT TREATER HEAD Other chest pain ELECTROCARDIOGRAM REPORT Routine 025 12:41 PM HEAT TREATER HEAD Other chest pain SCREENING MAMMOGRAM BILATERAL W [...] * Stress Treadmill Test (05/14/2024 3:41 PM HEAT TREATER HEAD) Anatomical Region Laterality Modality Nuclear Medicine Addenda Addendum by Brandi Butt MD on 05/15/2024 8:40 AM HEAT TREATER HEAD TREADMILL STRESS TEST Patient Name: Alise Ellis [...] * POCT lipid panel (05/11/2024 2:22 PM HEAT TREATER HEAD) Cholesterol, POC 187 mg/dL HDL, POC 74 mg/dL Triglycerides, POC 213 mg/dL LDL Cholesterol POC 71 mg/dL Chol/HDL Ratio, POC 2.5 Non-HDL Cholesterol, POC 113 mg/dL Cholesterol Total, POC 187 mg/dL Capillary blood 05/11/2024 2 :22 PM HEAT TREATER HEAD Samir Tierney MD POINT OF CARE TEST ORDER JACQUELINE Final Result * Electrocardiogram Report (05/11/2024 12:41 PM HEAT TREATER HEAD) Samir Tierney MD ECG ORDERABLES Final Re [...] CDT 10/22/2021 9:41 AM CDT Narrative PATHOLOGY [facility] - 10/26/2021 3:52 PM CDT EPIC results best viewed via link to PDF [address] [address] Tele: Marycarmen Gutierrez MD - Complex Commercial Litigation Paralegal CYTOLOGY REPORT Note to Patients: This report [...] the details. Patient Name: ALISE ELLIS Address: [address] [place] [address] Gender: F : 1965 (Age: 55) Service: Location: N : [id number] Hospital #: [id number] Patient Type: [facility] SPECIMEN Taken: 10/20/2021 Reported: 10/26/2021 Physician(s): Ayse Payne M.D. FINAL DIAGNOSIS: Specimen Type: - ThinPrep Pap and HPV w/ reflex Genotyping Statement of Specimen Adequacy: Source: Cervical/Endocervical - Satisfactory for evaluation - Case screened using computer assisted imaging technology and manually re- screened by a director data management. General Categorization: - Negative for intraepithelial lesion or malignancy Interpretation: - Specimen sent for HPV testing per physician order. 10/26/2021 15:52Jahaira Hawkins M.S., CT (ASCP) Report Reviewed and Electronically Signed By [...] LAB CYTOLOGY ORDERABLES F inal Result PATHOLOGY [facility] Laboratory Receiving [address] [place] [address] from Last 3 Months or Most Recently Relevant to Health [place] [address] [place] [address] [place] [address] [place] [address] [employer] CHOICE Care Teams Auditing Manager Relationship Specialty Start Date End Date Ashley Smith DO PCP - General Family Medicine 10/25/22 Clinic, Pcp 04/13/17
--- OUTSIDE RECORDS SUMMARY | 2024-07-28 11:24 | XMS_ITS | Clinical Summary ---
Author Organization [facility] [employer] Address [address] [place] [address] Care Team Providers Care Radiophone Operator Name Role Phone RodriguezMurali DO Primary Care Provider [phone] Ayse Payne MD Unavailable [phone] Source Comments [facility],non-owned Affiliates and Associated Physician Practices is amultiple site organization consisting of ambulatory clinics and hospital sitesin [place], [place], [place] and [place]. This disclosure is being madepursuant to the Care Everywhere program and may not contain all information available regarding this patient. Last updated 17.[facility] [employer] Allergies Active Allergy Reactions Criticality Noted Date [...] on file Legal Sex Female 10:17 AM DRUMS TEACHER Gender Identity Not on file Sexual [...] 3-dose series) 12/10/1986 MAMMOGRAM 03/12/2015 03/12/2013, 02/26/2012 PNEUMOCOCCAL VACCINE 50+ (1 of 1 - PCV) 12/10/2017 ZOSTER VACCINE (1 of 2) 12/10/2017 LIPID TESTING 11/21/2019 11/20/2014, 03/30/2013, 12/27/2011 COVID-19 VACCINE (1 - 2023-2 5 season) 2023 DEPRESSION SCREENING [...] CDT Routine general medical examination at a [facility] care facility from Last 3 Months or [...] PM CDT Narrative Resulting Agency Comment [facility] [address] [facility] [id number] Orville Tavares III, DO LAB - CHEMISTRY ORDERABLES Final Result [facility] ACCOUNT BILL [address] [place] [address] from Last 3 Months or Most Recently Relevant to Health [place] [address] [place] Care Teams Radiophone Operator Relationship Specialty Start Date End Date Murali Rodriguez DO PCP - General Family Medicine 09/05/13 Ayse Payne MD [address] [address] Obstetrics and Gynecology 11/20/14
--- OUTSIDE RECORDS SUMMARY | 2024-07-28 11:24 | XMS_ITS | Encounter Summary ---
Author Organization [facility] Address [address] [place] [address] Care Team Providers Care Credit Collections Rep Name Role Phone Unavailable Primary Care Provider Unavailabl e Reason for Referral * Laboratory Services (Routine) - Closed Specialty Diagnoses / Procedures Referred By Contac t Referred To Contact Diagnoses Secondary hypercoagulable state Procedures PROTHROMBIN FACTOR II MUTATION ANALYSIS Jerry Rivera MD [facility] [address] [address] Phone: tel: fax: Referral ID Status Reason Start Date Expiration Date Visits Re quested Visits Authorized [id number] Closed 07/25/2024 08/25/2025 1 1 * Laboratory Services (Routine) - Closed Specialty Diagnoses / Procedures Referred By Rajani flores Referred To Contact Diagnoses Secondary hypercoagulable state Procedures FACTOR V LEIDEN MUTATION Jerry Rivera MD [facility] [address] [address] Phone: tel: fax: Referral ID Status Reason Start Date Expiration Date Visits Re quested Visits Authorized [id number] Closed 07/25/2024 08/25/2025 1 1 Encounter Details Date Type Department Care Team (Late st Contact Info) Description 07/25/2024 4:30 PM CDT Telephone Check Up [facility] Oncology and Hematology - [place] [facility] [address] [address] Jerry Rivera MD [facility] [address] [address] SOB (shortness of breath) (Primary Dx); Secondary hypercoagulable state Social History Tobacco Use Types Packs/Day Years Used Date Smoking Tobacco: Never Smokeless Tobacco: Never Alcohol Use Standard Drinks/Week Comments Yes 0 (1 standard drink = 0.6 oz pur e alcohol) Socially Comments Unknown Sex and Gender Information Value Date Recorded Sex Assigned at Not on file Legal Sex Female 11:14 AM ROTARY DERRICK OPERATOR Gender Identity Not on file Sexual Orientation Not on file documented as of this encounter Progress Notes * Jerry Rivera MD - 07/25/2024 4:49 PM CDT HEMATOLOGY / ONCOLOGY PROGRESS NOTE Patient Identification: Name: Luci Ellis Age: 58 y.o. Sex: female : 1965 DIAGNOSIS Hypercoagulable state with diagnosis of left IJ thrombosis and right lower lobe pulmonary embolism in April 11, 2024. CURRENT TREATMENT Eliquis 5 mg twice a day started April 11, 2024 TREATMENT HISTORY SUBJECTIVE This is a phone visit with patient. She denies any chest pain and shortness of breath. No other newcomplaints. Review of system Constitutional: Patient did not mention fevers, sweats, fatigue, malaise, weight loss HEENT: Patient did not mention sinus congestion, hearing or vision problems Respiratory: Patient did not mention cough, dyspnea, wheeze Cardiovascular: Patient did not mention chest pain, exertional chest pressure/discomfort, nausea, syncope, shortness of breath GI: Patient did not mention constipation, diarrhea, dsyphagia, reflux symptoms, vomiting, melena : Patient did not mention dysuria, frequency, incontinence, urgency Integumentary system: no lymphadenopathy, sweats, flushing Musculoskeletal: Patient not mention: myalgia, arthralgia Neurological: Patient did not mention blurry or disturbed vision, numbness/weakness, dizziness Skin: No lumps, bumps or rashes. Objective: Vital signs in last 24 hours: As per nursing note Exam: This is a phone visit with the patient. PATH LABS @IMAGEIMP@ Assessment: Plan: There are no active problems to display for this patient. Hypercoagulable state with diagnosis of left IJ thrombosis and right lower lobe pulmonary embolism in April 11, 2024. CT scan neck and chest done on July 09 showed no evidence of PE. Patient will hold on Eliquis for 1 week and hypercoagulable workup will be done. Phone visit with 2weeks to discuss findings and further recommendations. Hypertension. Stable. ? TOBACCO COUNSELING She is not a tobacco/nicotine user. 07/25/2024 Jerry Rivera MD Patient's identity confirmed yes Patient gave verbal consent to have these services billed to their insurance and expressed understanding that co-insurance and deductible may apply: yes Patient was located at home. This encounter was completed via two-way synchronous audio only communication. Video technology available to provider, but patient not capable of, or doesn't consent to, use of video. Time spent in discussion with patient: 15 minutes. documented in this encounter Plan of Treatment Upcoming Encounters Date Type Department Care Team (Late st Contact Info) Description 08/13/2024 4:30 PM CDT Telephone Check Up [facility] Oncology and Hematology - [place] [address] [facility] [address] [place] [address] Jerry Rivera MD [address] [facility] [address] [place] [address] Scheduled Orders Name Type Priority Associated Diagnoses Orde r Schedule ANTITHROMBIN III ACTIVITY Lab Routine Secondary hypercoagulable state Expected: 08/01/2024, Expires: 07/25/2025 BETA 2 GLYCOPROTEIN I ANTIBODIES Lab Routine Secondary hypercoagulable state Expected: 08/01/2024, Expires: 07/25/2025 FACTOR V LEIDEN MUTATION Lab Routine Secondary hypercoagulable state Expected: 08/01/2024, Expires: 07/25/2025 HOMOCYSTEINE Lab Routine Secondary hypercoagulable state Expected: 08/01/2024, Expires: 07/25/2025 LUPUS ANTICOAGULANT W/REFLEX CONFIRMATION Lab Routine Secondary hypercoagulable state Expected: 08/01/2024, Expires: 07/25/2025 PROTEIN C & S ACTIVITY Lab Routine Secondary hypercoagulable state Expected: 08/01/2024, Expires: 07/25/2025 PROTHROMBIN FACTOR II MUTATION ANALYSIS Lab Routine Secondary hypercoagulable state Expected: 08/01/2024, Expires: 07/25/2025 PROTEIN S AG,FREE Lab Routine Secondary hypercoagulable state Expected: 08/01/2024, Expires: 07/25/2025 documented as of this encounter Visit Diagnoses Diagnosis SOB (shortness of breath)- Primary Shortness of breath Secondary hypercoagulable state documented in this encounter
--- OUTSIDE RECORDS SUMMARY | 2024-07-28 11:24 | XMS_ITS | Patient Health Record ---
Author Organization [facility] Address [address] [place] [address] Support Name Relationship Address Phone Luci Ellis Guarantor Unknown Reason For Referral No Information [...] Tdap Unknown 07/19/2005 Administered migrated Leg Patid= [id number] Date=07/19/2005 Vac= Tdap Tdap IM Intramuscular 03/16/2011 Administered Plan Of Treatment No Information Insurance Providers Payer Name Payer Address Payer Phone Subscriber Number Group Number Insured Name Patient Relationship to Insured Coverage Start Date Coverage End Date [facility] [employer] [address] [address] [place] [address] [id number] Luci Ellis Self - patient is the insured 1
--- OUTSIDE RECORDS SUMMARY | 2024-07-28 11:24 | XMS_ITS | Clinical Summary ---
Author Organization [facility] Address [address] [place] [address] Phone Care Team Providers Care Communications Executive Name Role Phone Clinic, Pcp Unavailable Unavailable Ashley Smith DO Primary Care Provider [phone] Allergies Active Allergy Reactions Criticality Noted Date [...] year. Assessment & Plan (05/17/2019 3:15 PM STAFFING RECRUITER): Pelvic exam and breast exam done. Mammogram has been scheduled. Return in one year. Assessment & Plan (05/08/2018 11:11 PM STAFFING RECRUITER): Pap smear and breast exam done. GI list Return in one year. Assessment & Plan (03/29/2017 9:25 AM STAFFING RECRUITER): Pap smear and breast exam done. Schedule mammogram. Calcium and vitamin D discussed with patient. Rtn in one year. Menopausal syndrome (hot flashes) 03/29/2017 Assessment & Plan (08/26/2020 9:45 PM CDT): Discussed pros/cons of HRT. Discussed options. Will start Vivelle Dot 0.05 twice weekly and prometrium 100 qhs. Assessment & Plan (05/08/2018 11:12 PM STAFFING RECRUITER): Discussed options for treatment of hot flashes and night sweats. Assessment & Plan (03/29/2017 9:26 AM STAFFING RECRUITER): Discussed options for treatment including HT, effexor, paxil, clonidine, otc remedies and treatment with Ambien. Alise will try Remifemin first. Migraines 04/18/2012 Encounters Date Type Department Care Team Description 05/31/2024 3:15 PM STAFFING RECRUITER Office Visit [facility] Medical Group Cardiology at [address] [place] [address] Samir Tierney MD Other chest pain (Primary Dx) 05/14/2024 2:30 PM STAFFING RECRUITER Ancillary Procedure [facility] Cardiology [address] [place] [address] Other chest pain 05/11/2024 2:30 PM STAFFING RECRUITER Office Visit [facility] Cardiology at [address] [place] [address] Samir Tierney MD Other chest pain (Primary Dx); Pulmonary embolism without acute cor pulmonale, unspecified chronicity, unspecified pulmonary embolism type (HCC) from Last 3 Months Immunizations Immunization Administration [...] on file Legal Sex Female 1:22 AM STAFFING RECRUITER Gender Identity Not on file Sexual Orientation Not on file Obstetrics History Para Term AB IAB SAB Ectopic Multiple Livin g Live Births 3 3 3 3 3 Date Outcome GA Total Labor Labor/2nd/3rd Weight Sex Type Anes PTL Dawn A1 A5 Name Clin Term Term Term Last Filed Vital Signs Vital Sign Reading Time Taken Comments Blood Pressure 136/88 05/31/2024 3:20 PM STAFFING RECRUITER Pulse 86 05/31/2024 3:20 PM STAFFING RECRUITER Temperature 36.8 C (98.2 F) 10/11/2019 8:43 AM CDT Respiratory Rate - - Oxygen Saturation 97% 05/31/2024 3:20 PM STAFFING RECRUITER Inhaled Oxygen Concentration - - Weight 74.4 kg (164 lb) 05/31/2024 3:20 PM STAFFING RECRUITER Height 162.6 cm (5' 4 ) 05/31/2024 3:20 PM STAFFING RECRUITER Body Mass Index 28.15 05/31/2024 3:20 PM STAFFING RECRUITER Plan of Treatment Health Maintenance Due Date [...] TEST ONLY TREADMILL Routine 05/14/2024 3:41 PM STAFFING RECRUITER Other chest pain POCT LIPID PANEL Routine 05/11/2024 2:22 PM STAFFING RECRUITER Other chest pain ELECTROCARDIOGRAM REPORT Routine 025 12:41 PM STAFFING RECRUITER Other chest pain SCREENING MAMMOGRAM BILATERAL W [...] * Stress Treadmill Test (05/14/2024 3:41 PM STAFFING RECRUITER) Anatomical Region Laterality Modality Nuclear Medicine Addenda Addendum by Brandi Butt MD on 05/15/2024 8:40 AM STAFFING RECRUITER TREADMILL STRESS TEST Patient Name: Alise Ellis [...] * POCT lipid panel (05/11/2024 2:22 PM STAFFING RECRUITER) Cholesterol, POC 187 mg/dL HDL, POC 74 mg/dL Triglycerides, POC 213 mg/dL LDL Cholesterol POC 71 mg/dL Chol/HDL Ratio, POC 2.5 Non-HDL Cholesterol, POC 113 mg/dL Cholesterol Total, POC 187 mg/dL Capillary blood 05/11/2024 2 :22 PM STAFFING RECRUITER Samir Tierney MD POINT OF CARE TEST ORDER JACQUELINE Final Result * Electrocardiogram Report (05/11/2024 12:41 PM STAFFING RECRUITER) Samir Tierney MD ECG ORDERABLES Final Re [...] CDT 10/22/2021 9:41 AM CDT Narrative [facility]Y [facility] - 10/26/2021 3:52 PM CDT EPIC results best viewed via link to PDF [place] [id number] [facility], [place], [place] [address] Tele: Marycarmen Gutierrez MD - Sandfill Operator Surface CYTOLOGY REPORT Note to Patients: This report [...] the details. Patient Name: ALISE ELLIS Address: [address] [place] [address] Gender: F : 1965 (Age: 55) Service: Location: N : [id number] Hospital #: [id number] Patient Type: [facility] SPECIMEN Taken: 10/20/2021 Reported: 10/26/2021 Physician(s): yAse Payne M.D. FINAL DIAGNOSIS: Specimen Type: - ThinPrep Pap and HPV w/ reflex Genotyping Statement of Specimen Adequacy: Source: Cervical/Endocervical - Satisfactory for evaluation - Case screened using computer assisted imaging technology and manually re- screened by a bar gauger and lubricator tender. General Categorization: - Negative for intraepithelial lesion [...] recommended by your physician or nurse practitioner. us Ayse Payne MD LAB CYTOLOGY ORDERABLES F inal Result PATHOLOGY [facility] Laboratory Receiving [address] [place] [address] from Last 3 Months or Most Recently Relevant to [place] [address] [place] [address] [employer] [place] [address] [place] [address] ANTHEM ACCESS CHOICE Care Teams Communications Executive Relationship Specialty Start Date End Date Ashley Smith DO PCP - General Family Medicine 10/25/22 Clinic, Pcp 04/13/17
--- OUTSIDE RECORDS SUMMARY | 2024-07-28 11:24 | XMS_ITS | Clinical Summary ---
Author Organization [facility] Address [facility] [place] [address] Care Team Providers Care Ornamental Iron Worker Name Role Phone Ashley Smith DO Primary Care Provider [phone] Allergies Active Allergy Reactions Criticality Noted Date [...] Department Care Team Description 05/02/2024 2:00 PM DIAMOND EXPERT Office Visit [facility] [address] [address] Jair Man MD Neck Swelling 05/02/2024 Travel 05/02/2024 Abstract [facility] [address] [address] Elisha Manzo MA 05/01/2024 Scan [facility] [address] [place] [address] Scanned, Doc Pccl 05/01/2024 Orders Only [facility] [address] [place] [address] Lisseth Petersen MA from Last 3 Months Immunizations Immunization Administration [...] Sex Assigned at Female 05/02/2024 1:54 PM DIAMOND EXPERT Legal Sex Female 8:54 AM DIAMOND EXPERT Gender Identity Not on file Sexual Orientation Not on file Last Filed Vital Signs Vital Sign Reading Time Taken Comments Blood Pressure 150/90 05/02/2024 2:20 PM DIAMOND EXPERT Pulse 91 05/02/2024 2:20 PM DIAMOND EXPERT Temperature - - Respiratory Rate - - Oxygen Saturation - - Inhaled Oxygen Concentration - - Weight 72.2 kg (159 lb 3.2 oz) 05/02/2024 2:20 P M DIAMOND EXPERT Height 162.6 cm (5' 4 ) 05/02/2024 2:20 PM DIAMOND EXPERT Body Mass Index 27.33 05/02/2024 2:20 PM DIAMOND EXPERT Plan of Treatment Health Maintenance Due Date Last Done Comments Colorectal Cancer Screening Colonoscopy (10 Years) 1965 Annual Physical 12/10/1970 Hepatitis C 12/10/1985 Hepatitis B Vaccines (1 of 3 - 19+ 3-dose series) 12/10/1986 Cervical Cancer Screening Pap with HPV Testing (Age 30 to 64) Every 5 Years 12/10/1997 Pneumococcal Vaccine: 50+ Years (1 of 1 - PCV) 12/10/2017 Zoster Vaccines (1 of 2) 12/10/2017 COVID-19 Vaccine (1 - 2023- season) 2023 Cervical Cancer Screening Pap Smear [...] on patient's age to complete [place] [address] [address] [facility] Care Teams Ornamental Iron Worker Relationship Specialty Start Date End Date Ashley Smith DO [address] [place] [address] PCP - General FAMILY PRACTICE 05/02/24
[2024-08-01 12:33] LABS: Vitamin D 1,25 (OH)2 Total 48 pg/mL (18-72); Vitamin D2 1,25 (OH)2 <8 pg/mL; Vitamin D3 1,25 (OH)2 48 pg/mL
== END 2024-07-27 09:03 | disposition home or self-care (01) ==
PROVIDERS: PCP Family Medicine; Referring Provider Nurse Practitioner; Visit Provider Urology
DX: E55.9 Vitamin D deficiency, unspecified (principal); Z00.00 Encounter for general adult medical examination without abnormal findings; R73.03 Prediabetes; E66.3 Overweight; N20.0 Calculus of kidney
CPT/HCPCS: 36415; 74176; 80053; 80061; 82652; 83036; 84443; 85027

== ENCOUNTER 2024-08-02 10:26 | Outpatient (CLI) | payer BC, SELFPAY ==
--- OUTSIDE RECORDS SUMMARY | 2024-08-02 11:08 | XMS_ITS | Referral Summary ---
Author Organization [facility] Address [address] [place] [address] Phone Care Team Providers Care Marble Chip Terrazzo Worker Name Role Phone Clinic, Pcp Unavailable Unavailable Ashley Smith DO Primary Care Provider [phone] Encounters Date Type Department Care Team Description 05/31/2024 3:15 PM CHEMISTRY TECHNICAL OFFICER Office Visit [facility] Medical Group Cardiology at [address] [place] [address] Samir Tierney MD Other chest pain (Primary Dx) 05/14/2024 2:30 PM CHEMISTRY TECHNICAL OFFICER Ancillary Procedure [facility] Medical Group Cardiology [address] [facility] [address] [place] [address] Other chest pain 05/11/2024 2:30 PM CHEMISTRY TECHNICAL OFFICER Office Visit [facility] Medical Group Cardiology at [address] [place] [address] Samir Tierney MD Other chest [...] year. Assessment & Plan (05/17/2019 3:15 PM CHEMISTRY TECHNICAL OFFICER): Pelvic exam and breast exam done. Mammogram has been scheduled. Return in one year. Assessment & Plan (05/08/2018 11:11 PM CHEMISTRY TECHNICAL OFFICER): Pap smear and breast exam done. GI list Return in one year. Assessment & Plan (03/29/2017 9:25 AM CHEMISTRY TECHNICAL OFFICER): Pap smear and breast exam done. Schedule mammogram. Calcium and vitamin D discussed with patient. Rtn in one year. Menopausal syndrome (hot flashes) 03/29/2017 Assessment & Plan (08/26/2020 9:45 PM CDT): Discussed pros/cons of HRT. Discussed options. Will start Vivelle Dot 0.05 twice weekly and prometrium 100 qhs. Assessment & Plan (05/08/2018 11:12 PM CHEMISTRY TECHNICAL OFFICER): Discussed options for treatment of hot flashes and night sweats. Assessment & Plan (03/29/2017 9:26 AM CHEMISTRY TECHNICAL OFFICER): Discussed options for treatment including HT, effexor, [...] on file Legal Sex Female 1:22 AM CHEMISTRY TECHNICAL OFFICER Gender Identity Not on file Sexual Orientation Not on file Last Filed Vital Signs Vital Sign Reading Time Taken Comments Blood Pressure 136/88 05/31/2024 3:20 PM CHEMISTRY TECHNICAL OFFICER Pulse 86 05/31/2024 3:20 PM CHEMISTRY TECHNICAL OFFICER Temperature 36.8 C (98.2 F) 10/11/2019 8:43 AM CDT Respiratory Rate - - Oxygen Saturation 97% 05/31/2024 3:20 PM CHEMISTRY TECHNICAL OFFICER Inhaled Oxygen Concentration - - Weight 74.4 kg (164 lb) 05/31/2024 3:20 PM CHEMISTRY TECHNICAL OFFICER Height 162.6 cm (5' 4 ) 05/31/2024 3:20 PM CHEMISTRY TECHNICAL OFFICER Body Mass Index 28.15 05/31/2024 3:20 PM CHEMISTRY TECHNICAL OFFICER Plan of Treatment Not on file Procedures Procedure Name Priority Date/Time Associated Diagnosis Comments STRESS TEST ONLY TREADMILL Routine 05/14/2024 3:41 PM CHEMISTRY TECHNICAL OFFICER Other chest pain POCT LIPID PANEL Routine 05/11/2024 2:22 PM CHEMISTRY TECHNICAL OFFICER Other chest pain ELECTROCARDIOGRAM REPORT Routine 025 12:41 PM CHEMISTRY TECHNICAL OFFICER Other chest pain SCREENING MAMMOGRAM BILATERAL W [...] * Stress Treadmill Test (05/14/2024 3:41 PM CHEMISTRY TECHNICAL OFFICER) Anatomical Region Laterality Modality Nuclear Medicine Addenda Addendum by Brandi Butt MD on 05/15/2024 8:40 AM CHEMISTRY TECHNICAL OFFICER TREADMILL STRESS TEST Patient Name: Alise Ellis [...] * POCT lipid panel (05/11/2024 2:22 PM CHEMISTRY TECHNICAL OFFICER) Cholesterol, POC 187 mg/dL HDL, POC 74 mg/dL Triglycerides, POC 213 mg/dL LDL Cholesterol POC 71 mg/dL Chol/HDL Ratio, POC 2.5 Non-HDL Cholesterol, POC 113 mg/dL Cholesterol Total, POC 187 mg/dL Capillary blood 05/11/2024 2 :22 PM CHEMISTRY TECHNICAL OFFICER Samir Tierney MD POINT OF CARE TEST ORDER JACQUELINE Final Result * Electrocardiogram Report (05/11/2024 12:41 PM CHEMISTRY TECHNICAL OFFICER) Samir Tierney MD ECG ORDERABLES Final Re [...] breasts. Ayse Payne MD IMG MAMMO PROCEDURES Air[place] l Result * Pap and High Risk HPV, reflex to Genotyping (10/20/2021 4:09 PM CDT) Thin prep (Pap test) 10/20/2021 4:09 PM CDT 10/22/2021 9:41 AM CDT Narrative PATHOLOGY [facility] - 10/26/2021 3:52 PM CDT EPIC results best viewed via link to PDF [address] [address] Tele: Marycarmen Gutierrez MD - Parking Enforcement Specialist CYTOLOGY REPORT Note to Patients: This [...] the details. Patient Name: ALISE ELLIS Address: [address] [place] [address] Gender: F : 1965 (Age: 55) Service: Location: N : [id number] Hospital #: [id number] Patient Type: [facility] SPECIMEN Taken: 10/20/2021 Reported: 10/26/2021 Physician(s): Ayse Payne M.D. FINAL DIAGNOSIS: Specimen Type: - ThinPrep Pap and HPV w/ reflex Genotyping Statement of Specimen Adequacy: Source: Cervical/Endocervical - Satisfactory for evaluation - Case screened using computer assisted imaging technology and manually re- screened by a director of medicare. General Categorization: - Negative for intraepithelial lesion [...] LAB CYTOLOGY ORDERABLES F inal Result PATHOLOGY [facility] Laboratory Receiving [address] [place] [address] from Last 3 Months or Most Recently Relevant to Health [place] [address] [place] [address] [place] [address] [place] [address] ANTHEM ACCESS CHOICE Care Teams Marble Chip Terrazzo Worker Relationship Specialty Start Date End Date Ashley Smith DO PCP - General Family Medicine 10/25/22 Clinic, Pcp 04/13/17
--- OUTSIDE RECORDS SUMMARY | 2024-08-02 11:08 | XMS_ITS | Encounter Summary ---
Author Organization [facility] Address [facility] [place] [address] Care Team Providers Care Dam Tender Name Role Phone Ashley Smith DO Primary Care Provider [phone] Encounter Details Date Type Department Care Team (Late st Contact Info) Description 05/02/2024 Abstract [facility] [address] Elisha Manzo MA Social History Tobacco Use Types Packs/Day Years Used Date Smoking Tobacco: Never Smokeless Tobacco: Never Comments Unknown Sex and Gender Information Value Date Recorded Sex Assigned at Female 05/02/2024 1:54 PM CAST IRON DIPPER Legal Sex Female 8:54 AM CAST IRON DIPPER Gender Identity Not on file Sexual Orientation [...] on filedocumented in this encounter Care Teams Dam Tender Relationship Specialty Start Date End Date Ashley Smith DO [address] [place] [address] PCP - General FAMILY PRACTICE 05/02/24 documented as of this encounter
--- OUTSIDE RECORDS SUMMARY | 2024-08-02 11:08 | XMS_ITS | Clinical Summary ---
Author Organization [facility] Address [facility] [place] [address] Care Team Providers Care Farmworker General Name Role Phone Ashley Smith DO Primary Care Provider [phone] Allergies Active Allergy Reactions Criticality Noted Date Comments Penicillins Hives,Rash,Other (see comment) Medium 03/08/2005 Medications ELIQUIS 5 MG tablet 04/14/2024 Active [...] Menopausal syndrome (hot flashes) 03/29/2017 Migraines 04/18/2012 Immunizations Immunization Administration Dates Next Due Tdap (Generic) 08/07/2021 Family History Medical History Relation Comments Diabetes Father Heart Disease Father Hypertension Father Hypertension Mother Relation Status Comments Father Mother Social History Tobacco Use Types Packs/Day Years Used Date Smoking Tobacco: Never Smokeless Tobacco: Never Comments Unknown Sex and Gender Information Value Date Recorded Sex Assigned at Female 05/02/2024 1:54 PM SOCIAL SCIENCES PROFESSOR Legal Sex Female 8:54 AM SOCIAL SCIENCES PROFESSOR Gender Identity Not on file Sexual Orientation Not on file Last Filed Vital Signs Vital Sign Reading Time Taken Comments Blood Pressure 150/90 05/02/2024 2:20 PM SOCIAL SCIENCES PROFESSOR Pulse 91 05/02/2024 2:20 PM SOCIAL SCIENCES PROFESSOR Temperature - - Respiratory Rate - - Oxygen Saturation - - Inhaled Oxygen Concentration - - Weight 72.2 kg (159 lb 3.2 oz) 05/02/2024 2:20 P M SOCIAL SCIENCES PROFESSOR Height 162.6 cm (5' 4 ) 05/02/2024 2:20 PM SOCIAL SCIENCES PROFESSOR Body Mass Index 27.33 05/02/2024 2:20 PM SOCIAL SCIENCES PROFESSOR Plan of Treatment Health Maintenance Due Date [...] of 2) 12/10/2017 COVID-19 Vaccine (1 - season) 2023 Cervical Cancer Screening Pap Smear [...] patient's age to complete this topic Insurance [facility] [email or web address]] Care Teams Farmworker General Relationship Specialty Start Date End Date Ashley Smith DO [address] [place] [place] [address] PCP - General FAMILY PRACTICE 05/02/24
--- OUTSIDE RECORDS SUMMARY | 2024-08-02 11:08 | XMS_ITS | Clinical Summary ---
Author Organization [facility] Address [address] [place] [address] Phone Care Team Providers Care Event Staff Member Name Role Phone Clinic, Pcp Unavailable Unavailable Ashley Smith DO Primary Care Provider [phone] Allergies Active Allergy Reactions Criticality Noted Date [...] year. Assessment & Plan (05/17/2019 3:15 PM INVESTIGATOR OPERATOR): Pelvic exam and breast exam done. Mammogram has been scheduled. Return in one year. Assessment & Plan (05/08/2018 11:11 PM INVESTIGATOR OPERATOR): Pap smear and breast exam done. GI list Return in one year. Assessment & Plan (03/29/2017 9:25 AM INVESTIGATOR OPERATOR): Pap smear and breast exam done. Schedule mammogram. Calcium and vitamin D discussed with patient. Rtn in one year. Menopausal syndrome (hot flashes) 03/29/2017 Assessment & Plan (08/26/2020 9:45 PM CDT): Discussed pros/cons of HRT. Discussed options. Will start Vivelle Dot 0.05 twice weekly and prometrium 100 qhs. Assessment & Plan (05/08/2018 11:12 PM INVESTIGATOR OPERATOR): Discussed options for treatment of hot flashes and night sweats. Assessment & Plan (03/29/2017 9:26 AM INVESTIGATOR OPERATOR): Discussed options for treatment including HT, effexor, paxil, clonidine, otc remedies and treatment with Ambien. Alise will try Remifemin first. Migraines 04/18/2012 Encounters Date Type Department Care Team Description 05/31/2024 3:15 PM INVESTIGATOR OPERATOR Office Visit [facility] Medical Group Cardiology at [address] [place] [address] Samir Tierney MD Other chest pain (Primary Dx) 05/14/2024 2:30 PM INVESTIGATOR OPERATOR Ancillary Procedure [facility] Cardiology [address] [place] [address] Other chest pain 05/11/2024 2:30 PM INVESTIGATOR OPERATOR Office Visit [facility] Cardiology at [address] [place] [address] Samir Tierney MD Other chest pain (Primary [...] on file Legal Sex Female 1:22 AM INVESTIGATOR OPERATOR Gender Identity Not on file Sexual [...] Comments Blood Pressure 136/88 05/31/2024 3:20 PM INVESTIGATOR OPERATOR Pulse 86 05/31/2024 3:20 PM INVESTIGATOR OPERATOR Temperature 36.8 C (98.2 F) 10/11/2019 8:43 AM CDT Respiratory Rate - - Oxygen Saturation 97% 05/31/2024 3:20 PM INVESTIGATOR OPERATOR Inhaled Oxygen Concentration - - Weight 74.4 kg (164 lb) 05/31/2024 3:20 PM INVESTIGATOR OPERATOR Height 162.6 cm (5' 4 ) 05/31/2024 3:20 PM INVESTIGATOR OPERATOR Body Mass Index 28.15 05/31/2024 3:20 PM INVESTIGATOR OPERATOR Plan of Treatment Health Maintenance Due [...] TEST ONLY TREADMILL Routine 05/14/2024 3:41 PM INVESTIGATOR OPERATOR Other chest pain POCT LIPID PANEL Routine 05/11/2024 2:22 PM INVESTIGATOR OPERATOR Other chest pain ELECTROCARDIOGRAM REPORT Routine 025 12:41 PM INVESTIGATOR OPERATOR Other chest pain SCREENING MAMMOGRAM BILATERAL [...] * Stress Treadmill Test (05/14/2024 3:41 PM INVESTIGATOR OPERATOR) Anatomical Region Laterality Modality Nuclear Medicine Addenda Addendum by Brandi Butt MD on 05/15/2024 8:40 AM INVESTIGATOR OPERATOR TREADMILL STRESS TEST Patient Name: Alise [...] * POCT lipid panel (05/11/2024 2:22 PM INVESTIGATOR OPERATOR) Cholesterol, POC 187 mg/dL HDL, POC 74 mg/dL Triglycerides, POC 213 mg/dL LDL Cholesterol POC 71 mg/dL Chol/HDL Ratio, POC 2.5 Non-HDL Cholesterol, POC 113 mg/dL Cholesterol Total, POC 187 mg/dL Capillary blood 05/11/2024 2 :22 PM INVESTIGATOR OPERATOR Samir Tierney MD POINT OF CARE TEST ORDER JACQUELINE Final Result * Electrocardiogram Report (05/11/2024 12:41 PM INVESTIGATOR OPERATOR) Samir Tierney MD ECG ORDERABLES Final [...] CDT 10/22/2021 9:41 AM CDT Narrative PATHOLOGY [facility] - 10/26/2021 3:52 PM CDT EPIC results best viewed via link to PDF [place] [id number] [facility], [place], [place] [address] Tele: Marycarmen Gutierrez MD - Dye House Wheel Operator CYTOLOGY REPORT Note to Patients: This report [...] the details. Patient Name: ALISE ELLIS Address: [address] [place] [address] Gender: F : 1965 (Age: 55) Service: Location: N : [id number] Hospital #: [id number] Patient Type: [facility] SPECIMEN Taken: 10/20/2021 Reported: 10/26/2021 Physician(s): Ayse Payne M.D. FINAL DIAGNOSIS: Specimen Type: - ThinPrep Pap and HPV w/ reflex Genotyping Statement of Specimen Adequacy: Source: Cervical/Endocervical - Satisfactory for evaluation - Case screened using computer assisted imaging technology and manually re- screened by a miller supervisor. General Categorization: - Negative for intraepithelial lesion [...] LAB CYTOLOGY ORDERABLES F inal Result PATHOLOGY [facility] Laboratory Receiving [address] [place] [address] from Last 3 Months or Most Recently Relevant to [place] [address] ANTHEM ACCESS [facility] Address: [facility] [id number] [place] [address] [place] [address] [employer] [place] [address] [place] [address] ANTHEM ACCESS CHOICE Care Teams Event Staff Member Relationship Specialty Start Date End Date Ashley Smith DO PCP - General Family Medicine 10/25/22 Clinic, Pcp 04/13/17
--- OUTSIDE RECORDS SUMMARY | 2024-08-02 11:08 | XMS_ITS | Clinical Summary ---
Author Organization [facility] Smita smallwood [facility] Address [address] [place] [address] Care Team Providers Care Group Cio Name Role Phone Unavailable Primary Care Provider [...] Encounters Date Type Department Care Team Description 07/31/2024 External Device Data STL ABSTRACTION Provider, Abstract 07/31/2024 Abstract [facility] Oncology and Hematology [facility] [address] [place] [address] Jerry Rivera MD 07/25/2024 4:30 PM CDT Telephone Check Up [facility] Oncology and Hematology [facility] [address] [place] [address] Jerry Rivera MD SOB (shortness of breath) (Primary Dx); Secondary hypercoagulable state 07/09/2024 Orders Only [facility] Oncology and Hematology [facility] [address] [place] [address] Jerry Rivera MD 06/13/2024 External Device Data [...] STL ABSTRACTION Provider, Abstract 05/18/2024 1:30 PM DIESEL PILE HAMMER OPERATOR Office Visit [facility] Oncology and Hematology [facility] [address] [place] [address] Jerry Rivera MD SOB (shortness of breath) (Primary Dx) 05/11/2024 Abstract [facility] Oncology and Hematology [facility] [address] [place] [address] Jerry Rivera MD from Last 3 Months [...] on file Legal Sex Female 11:14 AM DIESEL PILE HAMMER OPERATOR Gender Identity Not on file Sexual Orientation Not on file Last Filed Vital Signs Vital Sign Reading Time Taken Comments Blood Pressure 138/89 05/18/2024 1:18 PM DIESEL PILE HAMMER OPERATOR Pulse 85 05/18/2024 1:18 PM DIESEL PILE HAMMER OPERATOR Temperature 36.6 C (97.9 F) 05/18/2024 1:18 PM DIESEL PILE HAMMER OPERATOR Respiratory Rate 14 05/18/2024 1:18 PM DIESEL PILE HAMMER OPERATOR Oxygen Saturation 97% 05/18/2024 1:18 PM DIESEL PILE HAMMER OPERATOR Inhaled Oxygen Concentration - - Weight 74.8 kg (164 lb 12.8 oz) 05/18/2024 1:18 PM DIESEL PILE HAMMER OPERATOR Height 165.1 cm (5' 5 ) 05/18/2024 1:18 PM DIESEL PILE HAMMER OPERATOR Body Mass Index 27.42 05/18/2024 1:18 PM DIESEL PILE HAMMER OPERATOR Plan of Treatment Upcoming Encounters Date Type Department Care Team (Late st Contact Info) Description 08/13/2024 4:30 PM CDT Telephone Check Up [facility] Oncology and Hematology - [place] [address] [facility] [address] [place] [address] Jerry Rivera MD [address] [place] [address] Health Maintenance Due Date Last [...] Region Laterality Modality Neck Computed Tomogra phy Jerry Rivera MD CT ORDERABLES Final Result from Last 3 Months Insurance [employer] BLUE ACCESS CHOICE
--- OUTSIDE RECORDS SUMMARY | 2024-08-02 11:08 | XMS_ITS | Encounter Summary ---
Author Organization [facility] Address [address] [place] [address] Care Team Providers Care Hand Shaper Name Role Phone Unavailable Primary Care Provider Unavailabl e Encounter Details Date Type Department Care Team (Late st Contact Info) Description 07/31/2024 External Device Data STL ABSTRACTION Provider, Abstract NO ADDRESS ON FILE Social History Tobacco Use Types Packs/Day Years Used Date Smoking Tobacco: Never Smokeless Tobacco: Never Alcohol Use Standard Drinks/Week Comments Yes 0 (1 standard drink = 0.6 oz pur e alcohol) Socially Comments Unknown Sex and Gender Information Value Date Recorded Sex Assigned at Not on file Legal Sex Female 11:14 AM BEATER MACHINE OPERATOR Gender Identity Not on file Sexual Orientation Not on file documented as of this encounter Plan of Treatment Upcoming Encounters Date Type Department Care Team (Late st Contact Info) Description 08/13/2024 4:30 PM CDT Telephone Check Up [facility] Oncology and Hematology - [place] [address] [facility] [address] [place] [address] Jerry Rivera MD [address] [place] [address] documented as of this encounter Visit Diagnoses Not on filedocumented in this encounter
--- OUTSIDE RECORDS SUMMARY | 2024-08-02 11:08 | XMS_ITS | Clinical Summary ---
Author Organization [facility] [employer] Address [address] [place] [address] Care Team Providers Care Bookkeeping Manager Name Role Phone RodriguezMurali DO Primary Care Provider [phone] Ayse Payne MD Unavailable [phone] Source Comments [facility],non-owned Affiliates and Associated Physician Practices is amultiple site organization consisting of ambulatory clinics and hospital sitesin [place], [place], [place] and [place]. This disclosure is being madepursuant to the Care Everywhere program and may not contain all information available regarding this patient. Last updated 17.[facility] [employer] Allergies Active Allergy Reactions Criticality Noted Date [...] on file Legal Sex Female 10:17 AM METALWORKING INSTRUCTOR Gender Identity Not on file Sexual Orientation [...] CDT Routine general medical examination at a [facility] care facility from Last 3 Months [...] PM CDT Narrative Resulting Agency Comment [facility] [address] [facility] [id number] Orville Tavares III, DO LAB - CHEMISTRY ORDERABLES Final Result [facility] ACCOUNT BILL [address] [place] [address] from Last 3 Months or Most Recently Relevant to [place] [address] [employer] Care Teams Bookkeeping Manager Relationship Specialty Start Date End Date Murali Rodriguez DO PCP - General Family Medicine 09/05/13 Ayse Payne MD [address] [address] Obstetrics and Gynecology 11/20/14
[2024-08-06 11:28] LABS: Protein S Antigen, Free 89 % normal (50-147)
[2024-08-06 11:53] LABS: Homocysteine 9.4 umol/L (<10.4)
[2024-08-06 19:38] LABS: Lupus dRVVT Screen 39 sec (< OR = 45); PTT-LA Screen 32 sec (< OR = 40)
[2024-08-08 01:09] LABS: Anti-Thrombin III Antigen 90 % normal (80-120)
[2024-08-09 12:58] LABS: Factor V (Leiden) Mutation POSITIVE
== END 2024-08-02 10:27 | disposition home or self-care (01) ==
PROVIDERS: PCP Family Medicine; Visit Provider Internal Medicine Hematology & Oncology
DX: D68.69 Other thrombophilia (principal)
CPT/HCPCS: 36415; 81240; 81241; 83090; 85301; 85303; 85306; 85613; 85730; 86146

== ENCOUNTER 2024-09-03 01:55 | Day surgery (SDC) | payer BC, SELFPAY ==
[2024-08-28 11:41] VITALS: BMI 27.5
--- NOTE | 2024-08-28 12:20 | PC.NURSE ---
Spoke with _patient regarding medication _ELIQUIS_. _Patient verbalizes understanding that the last dose is to be taken on 08/31/2024 and the Endoscopist will instruct them when to restart after the procedure.
--- OUTSIDE RECORDS SUMMARY | 2024-09-03 01:57 | XMS_ITS | Clinical Summary ---
Author Organization [facility] [employer] Address [address] [place] [address] Phone Care Team Providers Care Real Estate Executive Assistant Name Role Phone Clinic, Pcp Unavailable Unavailable Ashley Smith DO Primary Care Provider [phone] Allergies Active Allergy Reactions Criticality Noted Date [...] year. Assessment & Plan (05/17/2019 3:15 PM HEALTH INSURANCE ADJUSTER): Pelvic exam and breast exam done. Mammogram has been scheduled. Return in one year. Assessment & Plan (05/08/2018 11:11 PM HEALTH INSURANCE ADJUSTER): Pap smear and breast exam done. GI list Return in one year. Assessment & Plan (03/29/2017 9:25 AM HEALTH INSURANCE ADJUSTER): Pap smear and breast exam done. Schedule mammogram. Calcium and vitamin D discussed with patient. Rtn in one year. Menopausal syndrome (hot flashes) 03/29/2017 Assessment & Plan (08/26/2020 9:45 PM CDT): Discussed pros/cons of HRT. Discussed options. Will start Vivelle Dot 0.05 twice weekly and prometrium 100 qhs. Assessment & Plan (05/08/2018 11:12 PM HEALTH INSURANCE ADJUSTER): Discussed options for treatment of hot flashes and night sweats. Assessment & Plan (03/29/2017 9:26 AM HEALTH INSURANCE ADJUSTER): Discussed options for treatment including HT, effexor, [...] on file Legal Sex Female 1:22 AM HEALTH INSURANCE ADJUSTER Gender Identity Not on file Sexual Orientation Not on file Obstetrics History Para Term AB IAB SAB Ectopic Multiple Livin g Live Births 3 3 3 3 3 Date Outcome GA Total Labor Labor/2nd/3rd Weight Sex Type Anes PTL Dawn A1 A5 Name Clin Term Term Term Last Filed Vital Signs Vital Sign Reading Time Taken Comments Blood Pressure 136/88 05/31/2024 3:20 PM HEALTH INSURANCE ADJUSTER Pulse 86 05/31/2024 3:20 PM HEALTH INSURANCE ADJUSTER Temperature 36.8 C (98.2 F) 10/11/2019 8:43 AM CDT Respiratory Rate - - Oxygen Saturation 97% 05/31/2024 3:20 PM HEALTH INSURANCE ADJUSTER Inhaled Oxygen Concentration - - Weight 74.4 kg (164 lb) 05/31/2024 3:20 PM HEALTH INSURANCE ADJUSTER Height 162.6 cm (5' 4) 05/31/2024 3:20 PM HEALTH INSURANCE ADJUSTER Body Mass Index 28.15 05/31/2024 3:20 PM HEALTH INSURANCE ADJUSTER Plan of Treatment Health Maintenance Due Date Last Done Comments Colon Cancer Screening-Colonoscopy 1965 Depression Screening 1965 Hepatitis C Screening 1965 Hepatitis B Screening 12/10/1985 Pneumococcal vaccine <65 (1 of 2 - PCV) 12/10/1986 Zoster Vaccine (1 of 2) 12/10/2017 Cervical Cancer Screening 10/20/2022 10/20/2021, 03/2020 Regular Well Visit/Exam 18-64 10/31/2024, 10/21/2022, 10/20/2021, Additional history exists Influenza Vaccine (Season Ended) 2024 Breast Cancer Screening-Mammogram 01/03/2025 01/04/2024, 11/22/2022, 11/13/2021, [...] Yr for both breasts. Ayse Payne MD IM MAMMO PROCEDURES Aria l Result * Pap and High Risk HPV, reflex to Genotyping (10/20/2021 4:09 PM CDT) Thin prep (Pap test) 10/20/2021 4:09 PM CDT 10/22/2021 9:41 AM CDT Narrative PATHOLOGY [facility] - 10/26/2021 3:52 PM CDT EPIC results best viewed via link to PDF [address] [address] Tele: Marycarmen Gutierrez MD - Coil Shaper CYTOLOGY REPORT Note to Patients: This report [...] the details. Patient Name: ALISE ELLIS Address: [address] [place] [address] Gender: F : 1965 (Age: 55) Service: Location: [facility] #: [id number] Patient Type: [facility] SPECIMEN Taken: 10/20/2021 Reported: 10/26/2021 Physician(s): Ayse Payne M.D. FINAL DIAGNOSIS: Specimen Type: - ThinPrep Pap and HPV w/ reflex Genotyping Statement of Specimen Adequacy: Source: Cervical/Endocervical - Satisfactory for evaluation - Case screened using computer assisted imaging technology and manually re- screened by a solar energy consultant and designer. General Categorization: - Negative for intraepithelial lesion [...] LAB CYTOLOGY ORDERABLES F inal Result PATHOLOGY [facility] Laboratory Receiving [address] [place] [address] from Last 3 Months or Most Recently Relevant to Health Maintenance Insurance [facility] [address] [employer] [place] [address] [employer] ACCESS CHOICE [employer]ICE Care Teams Real Estate Executive Assistant Relationship Specialty Start Date End Date Ashley Smith DO PCP - General Family Medicine 10/25/22 Clinic, Pcp 04/13/17
--- OUTSIDE RECORDS SUMMARY | 2024-09-03 01:57 | XMS_ITS | Referral Summary ---
Author Organization [facility] [employer] Address [address] [place] [address] Phone Care Team Providers Care Slat Grader Name Role Phone Clinic, Pcp Unavailable Unavailable Ashley Smith DO Primary Care Provider [phone] Allergies Active Allergy Reactions Criticality Noted Date [...] year. Assessment & Plan (05/17/2019 3:15 PM TERMITE HELPER): Pelvic exam and breast exam done. Mammogram has been scheduled. Return in one year. Assessment & Plan (05/08/2018 11:11 PM TERMITE HELPER): Pap smear and breast exam done. GI list Return in one year. Assessment & Plan (03/29/2017 9:25 AM TERMITE HELPER): Pap smear and breast exam done. Schedule mammogram. Calcium and vitamin D discussed with patient. Rtn in one year. Menopausal syndrome (hot flashes) 03/29/2017 Assessment & Plan (08/26/2020 9:45 PM CDT): Discussed pros/cons of HRT. Discussed options. Will start Vivelle Dot 0.05 twice weekly and prometrium 100 qhs. Assessment & Plan (05/08/2018 11:12 PM TERMITE HELPER): Discussed options for treatment of hot flashes and night sweats. Assessment & Plan (03/29/2017 9:26 AM TERMITE HELPER): Discussed options for treatment including HT, effexor, [...] on file Legal Sex Female 1:22 AM TERMITE HELPER Gender Identity Not on file Sexual Orientation Not on file Last Filed Vital Signs Vital Sign Reading Time Taken Comments Blood Pressure 136/88 05/31/2024 3:20 PM TERMITE HELPER Pulse 86 05/31/2024 3:20 PM TERMITE HELPER Temperature 36.8 C (98.2 F) 10/11/2019 8:43 AM CDT Respiratory Rate - - Oxygen Saturation 97% 05/31/2024 3:20 PM TERMITE HELPER Inhaled Oxygen Concentration - - Weight 74.4 kg (164 lb) 05/31/2024 3:20 PM TERMITE HELPER Height 162.6 cm (5' 4) 05/31/2024 3:20 PM TERMITE HELPER Body Mass Index 28.15 05/31/2024 3:20 PM TERMITE HELPER Plan of Treatment Not on file Procedures [...] 9:41 AM CDT Narrative PATHOLOGY [facility] - 10/26/2021 3:52 PM CDT EPIC results best viewed via link to PDF [address] [address] Tele: Marycarmen Gutierrez MD - Switchboard Operator Receptionist CYTOLOGY REPORT Note to Patients: This report [...] the details. Patient Name: ALISE ELLIS Address: [address] [place] [address] Gender: F : 1965 (Age: 55) Service: Location: [facility] #: [id number] Patient Type: [facility] SPECIMEN Taken: 10/20/2021 Reported: 10/26/2021 Physician(s): Ayse Payne M.D. FINAL DIAGNOSIS: Specimen Type: - ThinPrep Pap and HPV w/ reflex Genotyping Statement of Specimen Adequacy: Source: Cervical/Endocervical - Satisfactory for evaluation - Case screened using computer assisted imaging technology and manually re- screened by a certified drug counselor. General Categorization: - Negative for intraepithelial lesion [...] ORDERABLES F inal Result PATHOLOGY [facility] Laboratory Receiving [address] [place], [place] [id number] from Last 3 Months or Most Recently Relevant to Health Maintenance [place] [address] [place] [address] [place] [address] [place] [address] [facility] ACCESS CHOICE Care Teams Slat Grader Relationship Specialty Start Date End Date Ashley Smith DO PCP - General Family Medicine 10/25/22 Clinic, Pcp 04/13/17
--- OUTSIDE RECORDS SUMMARY | 2024-09-03 01:57 | XMS_ITS | Patient Health Record ---
Author Organization [facility] Address [address] [place] [address] Support Name Relationship Address Phone Drissapoorva Luci Guarantor Unknown [phone] Reason For Referral No Information Medications Medication SIG (Take, Route, Fr equency, Duration) Notes Start Date End Date Status Imitrex 100 MG take 1 tablet by ora l route at onset of headache, 2nd pill to be taken 2hours later if needed Oral 1 03/26/2011 Ac tive Immunizations Vaccine Route Administration Date Status Comme nts Tdap Unknown 07/19/2005 Administered migrated Leg Patid= [id number] Date=07/19/2005 Vac= Tdap Tdap IM Intramuscular 03/16/2011 Administered Plan Of Treatment No Information Insurance Providers Payer Name Payer Address Payer Phone Subscriber Number Group Number Insured Name Patient Relationship to Insured Coverage Start Date Coverage End Date [facility] [employer] [address] [address] [place] [address] [id number] Luci Ellis Self - patient is the insured 1
--- OUTSIDE RECORDS SUMMARY | 2024-09-03 01:57 | XMS_ITS | Clinical Summary ---
Author Organization [facility] Address [address] [place] [address] Care Team Providers Care Clinical Orthoptist Name Role Phone Unavailable Primary Care Provider [...] Encounters Date Type Department Care Team Description 08/29/2024 Abstract [facility] Oncology and Hematology - [place] [address] [place] [address] Jerry Rivera MD 08/29/2024 Telephone [facility] Oncology and Hematology - [place] [address] [place] [address] Jerry Rivera MD Surgical Clearance 08/21/2024 External Device Data STL ABSTRACTION Provider, Abstract 08/15/2024 External Device Data STL ABSTRACTION Provider, Abstract 08/14/2024 External Device Data STL ABSTRACTION Provider, Abstract 08/13/2024 4:30 PM CDT Telephone Check Up [facility] Oncology and Hematology - [place] [address] [place] [address] Jerry Rivera MD 08/13/2024 Orders Only [facility] Oncology and Hematology - [place] [address] [place] [address] Jerry Rivera MD 08/10/2024 Orders Only [facility] Oncology and Hematology - [place] [address] [place] [address] Jerry Rivera MD 08/09/2024 Orders Only [facility] Oncology and Hematology - [place] [address] [place] [address] Jerry Rivera MD 08/07/2024 Orders Only [facility] Oncology and Hematology - [place] [address] [place] [address] Jerry Rivera MD 07/31/2024 External Device Data STL ABSTRACTION Provider, Abstract 07/31/2024 Abstract [facility] Oncology and Hematology - [place] [address] [place] [address] Jerry Rivera MD 07/25/2024 4:30 PM CDT Telephone Check Up [facility] Oncology and Hematology - [place] [address] [place] [address] Jerry Rivera MD SOB (shortness of breath) (Primary Dx); Secondary hypercoagulable state 07/09/2024 Orders Only [facility] Oncology and Hematology - [place] [address] [place] [address] Jerry Rivera MD 06/13/2024 External Device Data STL ABSTRACTION Provider, Abstract 06/06/2024 External Device Data STL ABSTRACTION Provider, Abstract 06/05/2024 External Device Data STL ABSTRACTION Provider, Abstract from Last 3 Months Family History Medical [...] on file Legal Sex Female 11:14 AM GI ASST Gender Identity Not on file Sexual Orientation Not on file Last Filed Vital Signs Vital Sign Reading Time Taken Comments Blood Pressure 138/89 05/18/2024 1:18 PM GI ASST Pulse 85 05/18/2024 1:18 PM GI ASST Temperature 36.6 C (97.9 F) 05/18/2024 1:18 PM GI ASST Respiratory Rate 14 05/18/2024 1:18 PM GI ASST Oxygen Saturation 97% 05/18/2024 1:18 PM GI ASST Inhaled Oxygen Concentration - - Weight 74.8 kg (164 lb 12.8 oz) 05/18/2024 1:18 PM GI ASST Height 165.1 cm (5' 5) 05/18/2024 1:18 PM GI ASST Body Mass Index 27.42 05/18/2024 1:18 PM GI ASST Plan of Treatment Upcoming Encounters Date Type Department Care Team (Late st Contact Info) Description 02/15/2025 11:00 AM GI ASST Office Visit [facility] Oncology and Hematology - [place] [address] [facility] [address] [place] [address] Jerry Rivera MD [address] [facility] [facility] [address] [place] [address] Health Maintenance Due Date Last [...] Procedure Name Priority Date/Time Associated Diagnosis Comments CHG LUPUS ANTICOAGULANT Routine 08/03/19 25 4:25 PM CDT BETA 2 GLYCOPROTEIN I ANTIBODIES Routine 08/02/2024 3:27 PM CDT FACTOR V LEIDEN MUTATION Routine 025 3:04 PM CDT ANTITHROMBIN III ACTIVITY Routine 2024 10:57 AM CDT PROTHROMBIN GENE ANALYSIS Routine 2024 10:[address] SOFT TISSUE NECK CHEST W CONT Routine 07/09/2024 1:51 PM CDT from Last 3 Months Results * CHG LUPUS ANTICOAGULANT (08/02/2024 4:25 PM CDT) us Jerry Rivera MD CHG - LABORATORY Final Result * BETA 2 GLYCOPROTEIN I ANTIBODIES (08/02/2024 3:27 PM CDT) Blood us Jerry Rivera MD CHEMISTRY ORDERABLES Final Resu lt * FACTOR V LEIDEN MUTATION (08/02/2024 3:04 PM CDT) Blood us Jerry Rivera MD HEMATOLOGY ORDERABLES Final Res ult * ANTITHROMBIN III ACTIVITY (08/02/2024 10:57 AM CDT) Blood us Jerry Rivera MD HEMATOLOGY ORDERABLES Final Res ult * PROTHROMBIN GENE ANALYSIS (08/02/2024 10:24 AM CDT) Blood us Jerry Rivera MD CHEMISTRY ORDERABLES Final Resu lt * CT SOFT TISSUE NECK CHEST W CONT (07/09/2024 1:51 PM CDT) Anatomical Region Laterality Modality Neck Computed Tomogra phy Jerry Rivera MD CT ORDERABLES Final Result from Last 3 [place] [address] [facility] BLUE ACCESS CHOICE [facility]
--- OUTSIDE RECORDS SUMMARY | 2024-09-03 01:57 | XMS_ITS | Clinical Summary ---
Author Organization [facility] [employer] Address [address] [place] [address] Care Team Providers Care Division Officer Weapons Department Name Role Phone RodriguezMurali DO Primary Care Provider [phone] Ayse Payne MD Unavailable [phone] Source Comments [facility],non-owned Affiliates and Associated Physician Practices is amultiple site organization consisting of ambulatory clinics and hospital sitesin [place], [place], [place] and [place]. This disclosure is being madepursuant to the Care Everywhere program and may not contain all information available regarding this patient. Last updated 17.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 Gender Identity Not on file Sexual Orientation [...] 11:43 AM CDT Height 165.1 cm (5' 5) 10/29/2016 11:43 AM CDT Body Mass Index [...] CDT Routine general medical examination at a [facility] care facility from Last 3 Months or [...] PM CDT Narrative Resulting Agency Comment [facility] [address] [facility] [id number] Orville Tavares III, DO LAB - CHEMISTRY ORDERABLES Final Result [facility] ACCOUNT BILL [address] [place] [address] from Last 3 Months or Most Recently Relevant to [place] [address] [employer] Care Teams Division Officer Weapons Department Relationship Specialty Start Date End Date Murali Rodriguez DO PCP - General Family Medicine 09/05/13 Ayse Payne MD [address] [address] Obstetrics and Gynecology 11/20/14
[2024-09-03 07:11] VITALS: BP 123/79; PULSE 92; RESP 18; TEMP 36.1; O2SAT 98; BMI 26.9
[2024-09-03] MEDS: LACTATED RINGERS 1,000 ML 150 ML IV CONT (07:23)
--- NOTE | 2024-09-03 07:45 | WPDANESEPPF ---
Anes - Initial Pre Proc Eval Procedure: Operation Date: 09/03/24 08:30 Proposed Procedures p Screening Colonoscopy - Israel Najera MD Date/Time: 09/03/24 07:45 Surgeon: Israel Najera MD Pre Op Diagnosis: screening colon Patient Data Age: 58 Gender: F Height: 1.65 m Weight: 73.5 kg Last Vital Signs Temp 36.1 C L 09/03/24 07:11 Pulse 92 09/03/24 07:11 Resp 18 09/03/24 07:11 BP 123/79 09/03/24 07:11 Pulse Ox 98 09/03/24 07:11 O2 Del Method Room Air 09/03/24 07:11 Allergies Allergy/AdvReac Type Severity Reaction Status Date / Time Penicillins Allergy Mild Rash Verified 09/03/24 07:08 Home Medications ?Medication ?Instructions ?Recorded ?Confirmed ?Type sumatriptan succinate 50 mg tablet 50 mg PO .At onset of migraine PRN 04/12/24 08/28/24 History migraine headache calcium acetate 667 mg tablet 667 mg PO ONCE 06/12/24 09/03/24 History cholecalciferol (vitamin D3) 50 50 mcg PO DAILY 06/12/24 09/03/24 History mcg (2,000 unit) capsule labetalol 100 mg tablet 50 mg (1/2 x 100 mg) PO Q12H #180 06/12/24 09/03/24 Rx tabs apixaban 5 mg tablet (Eliquis) See Rx Instructions .Route 08/21/24 09/03/24 Rx .COMPLEX #180 tabs CALCIUM SUPPLEMENT 1 dose PO DAILY 08/28/24 09/03/24 History Patient hx anesthesia problems: none Family hx anesthesia problems: none Results Review: All pre-operative results and documents have been reviewed as part of the pre-operative evaluation. FORMERLY [facility], [facility] Past Medical History Medical History Vitamin D deficiency, unspecified Kidney stones Migraine Surgical History Surgical History H/O lithotripsy Hx of breast implants, bilateral Family History Family History Father Diabetes mellitus Hypertension Heart disease Mother Hypertension Sibling Diabetes mellitus Social History Social History Smoking status: Never smoker Second hand tobacco smoke exposure: No Alcohol intake: current Alcohol use details: rarely Substance use: never Do You Feel Safe in your Home?: Yes Lack of Transportation: No Lack of Food: Never True Current Housing: I Have Housing Concerned About Future Housing: No Difficulty Paying Gas/Electric Bills: No Difficulty Paying for Meds: No Currently Unemployed: No Education: Bachelor's Degree Difficulty w/ Childcare or Family Care: No Spiritual care concerns: No Anes - Eval Final PreProcedure Day of Procedure 09/03/24 07:45 Patient weight: normal Heart: regular rate and rhythm Lungs: clear to auscultation Airway: Mallampati scale class II Neurological: alert and oriented Last oral intake: >/= 8 hours ASA classification: III Emergent: no Anesthetic plan: proceed Anesthesia type and monitoring: general GIVS and standard monitoring Results Review: All pre-operative results and documents have been reviewed as part of the pre-operative evaluation. Informed Consent: The patient's anesthetic plan and its attendant risks and benefits were discussed with the patient/family/POA. Questions were solicited and answers provided to the satisfaction of the patient/family/POA.
--- NOTE | 2024-09-03 07:54 | PM.HPGS ---
History of Present Illness History of Present Illness Consent: Risks, benefits, and alternatives have been discussed and questions answered. Patient agrees to proceed with procedure. Chief complaint: screening colon Narrative: Luci Ellis is a 58 year old female here for first screening colonoscopy Review of Systems Review of Systems: All systems reviewed & are unremarkable except as noted in HPI and below PMFSH Past Medical History Medical History Vitamin D deficiency, unspecified Kidney stones Migraine Surgical History Surgical History H/O lithotripsy Hx of breast implants, bilateral Family History Family History Father Diabetes mellitus Hypertension Heart disease Mother Hypertension Sibling Diabetes mellitus Social History Social History Smoking status: Never smoker Second hand tobacco smoke exposure: No Alcohol intake: current Alcohol use details: rarely Substance use: never Do You Feel Safe in your Home?: Yes Lack of Transportation: No Lack of Food: Never True Current Housing: I Have Housing Concerned About Future Housing: No Difficulty Paying Gas/Electric Bills: No Difficulty Paying for Meds: No Currently Unemployed: No Education: Bachelor's Degree Difficulty w/ Childcare or Family Care: No Spiritual care concerns: No Meds Home Medications and Allergies Home Medications ?Medication ?Instructions ?Recorded ?Confirmed ?Type sumatriptan succinate 50 mg tablet 50 mg PO .At onset of migraine PRN 04/12/24 08/28/24 History migraine headache calcium acetate 667 mg tablet 667 mg PO ONCE 06/12/24 09/03/24 History cholecalciferol (vitamin D3) 50 50 mcg PO DAILY 06/12/24 09/03/24 History mcg (2,000 unit) capsule labetalol 100 mg tablet 50 mg (1/2 x 100 mg) PO Q12H #180 06/12/24 09/03/24 Rx tabs apixaban 5 mg tablet (Eliquis) See Rx Instructions .Route 08/21/24 09/03/24 Rx .COMPLEX #180 tabs CALCIUM SUPPLEMENT 1 dose PO DAILY 08/28/24 09/03/24 History Allergies Allergy/AdvReac Type Severity Reaction Status Date / Time Penicillins Allergy Mild Rash Verified 09/03/24 07:08 Vital Signs Vital Signs - 24 hr 09/03/24 07:11 Temperature 97 F L Pulse Rate 92 Respiratory Rate 18 Blood Pressure 123/79 Pulse Oximetry 98 Oxygen Delivery Room Air Exam Const: General: comfortable and no acute distress HENMT: Face/Nose/Sinus: Normal nares present Eyes: General: appearance normal, both eyes and all related structures Neck: Neck: no JVD Resp: Auscultation: clear to auscultation bilaterally Cardio: Rate: regular rate Rhythm: regular rhythm GI: Inspection: non-distended GI Palp: Yes Soft to palpation Skin: General skin exam: normal color Neuro: General: gait normal Speech: normal speech Extrem: General: normal to inspection Psych: Mental Status: mental status grossly normal Assessment and Plan Assessment and plan (1) Screening for colon cancer: Code(s): Z12.11 - Encounter for screening for malignant neoplasm of colon Status: Acute Assessment and Plan: colonoscopy
[2024-09-03 08:10] VITALS: BP 112/67; PULSE 78; RESP 16; O2SAT 98
[2024-09-03 08:20] VITALS: BP 113/81; PULSE 67; RESP 14; O2SAT 100
[2024-09-03 08:30] VITALS: BP 125/77; PULSE 66; RESP 16; O2SAT 100
== END 2024-09-03 08:42 | disposition home or self-care (01) ==
PROVIDERS: PCP Nurse Practitioner; Referring Provider Family Medicine; Visit Provider Internal Medicine Gastroenterology
PROC: 0DJD8ZZ Inspection of Lower Intestinal Tract, Via Natural or Artificial Opening Endoscopic (ICD-10-PCS; CPT 45378; principal; 2024-09-03 08:30)
DX: Z12.11 Encounter for screening for malignant neoplasm of colon (principal); K64.8 Other hemorrhoids; K57.30 Diverticulosis of large intestine without perforation or abscess without bleeding; E55.9 Vitamin D deficiency, unspecified; Z79.01 Long term (current) use of anticoagulants; Z98.890 Other specified postprocedural states; Z87.442 Personal history of urinary calculi; Z82.49 Family history of ischemic heart disease and other diseases of the circulatory system
CPT/HCPCS: 45378; J2704; J7120

== ENCOUNTER 2025-01-10 09:17 | Outpatient (CLI) | payer BC, SELFPAY ==
--- NOTE | ~2025-01-10 | XR_ITS ---
EXAMINATION: XR abdomen/kub 1V, 01/10/2025 9:26 CDT HISTORY: JAN KIDNEY STONES COMPARISON: No comparisons available. Technique: 3 view. Findings: Bowel gas pattern unremarkable. No obstruction. Bilateral renal calculi the largest left mid pole 3 mm, fecal content obscures evaluation No acute osseous abnormality. Impression: 1. No acute abnormality. Reviewed, dictated and finalized at location P. Impression: 1. No acute abnormality.
== END 2025-01-10 09:18 | disposition home or self-care (01) ==
PROVIDERS: PCP Family Medicine; Visit Provider Urology
DX: N20.0 Calculus of kidney (principal)
CPT/HCPCS: 74018